=== PATIENT | female | born 1950 | race Caucasian/White ===

== ENCOUNTER 2021-09-18 07:58 | Outpatient (REF) | payer OTHER, SELFPAY ==
[2021-09-18 11:11] LABS: MANUAL DIFF FLAG NO
[2021-09-18 11:30] LABS: Basophils Percent Auto 0.9 % (0-2); Eosinophils Absolute Auto 0.2 X10*3/uL (0.0-0.4); Eosinophils Percent Auto 5.5 % (0-4); Hematocrit 42.5 % (37.0-47.0); Hemoglobin 13.9 g/dl (12.0-16.0); Imm Gran Abs Auto 0.01 X10*3/uL (0.00-0.03); Imm Gran Pct Auto 0.2 % (0.0-0.4); Lymphocytes Absolute Auto 1.8 X10*3/uL (1.2-4.9); Mean Corpuscular HGB Conc 32.7 g/dl (31.0-35.0); Mean Corpuscular Hemoglobin 31.5 pg (27.0-33.0); Mean Corpuscular Volume 96.4 fL (80.0-98.0); Mean Platelet Volume 10.2 fL (9.4-12.3); Monocytes Absolute Auto 0.5 X10*3/uL (0.1-1.2); Monocytes Percent Auto 10.7 % (2-11); Neutrophils Absolute Auto 1.9 x10*3/uL (2.0-8.3); Neutrophils Percent Auto 42.7 % (45-73); Platelet Count 241 X10*3/uL (160-400); Red Blood Count 4.41 X10*6/uL (4.20-5.50); Red Cell Distribution Width 13.3 % (11.0-16.0); White Blood Count 4.4 X10*3/uL (4.8-10.8)
[2021-09-18 11:38] LABS: Alanine Aminotransferase 16 U/L (0-31); Anion Gap 10 (12-20); Aspartate Amino Transferase 17 U/L (5-31); Blood Urea Nitrogen 12 mg/dL (9-16); Calcium 9.6 mg/dL (8.4-10.2); Carbon Dioxide 27 mmol/L (22-29); Chloride 106 mmol/L (96-108); Cholesterol 217 mg/dL; Estimated Glomerular Filt Rate > 60; Glucose Fasting 85 mg/dL (60-99); HDL Cholesterol 62 mg/dL; LDL Cholesterol Calculated 140 mg/dl; Potassium 4.3 mmol/L (3.3-5.1); Sodium 139 mmol/L (135-145); Triglycerides 79 mg/dL
[2021-09-18 12:02] LABS: Free T4 (Free Thyroxine) 1.06 ng/dL (0.71-1.85); Thyroid Stimulating Hormone 2.32 uIU/mL (0.32-4.0); Vitamin D 25-OH Total 33.6 ng/mL (>30)
[2021-09-22 19:51] LABS: Thyroid Peroxidase Antibodies >900 IU/mL (<9)
== END 2021-09-18 07:59 | disposition home or self-care (01) ==
LOC: HO.HMGCLDS 07:58
PROVIDERS: PCP Internal Medicine; Visit Provider Internal Medicine
DX: Z00.00 Encounter for general adult medical examination without abnormal findings (principal); E03.9 Hypothyroidism, unspecified; J31.0 Chronic rhinitis; E06.3 Autoimmune thyroiditis
CPT/HCPCS: 36415; 80048; 80061; 82306; 84439; 84443; 84450; 84460; 85025; 86376

== ENCOUNTER 2022-09-18 08:50 | Outpatient (REF) | payer OTHER, SELFPAY ==
[2022-09-18 12:27] LABS: Aspartate Amino Transferase 15 U/L (5-31); Cholesterol 223 mg/dL; Glucose Fasting 94 mg/dL (60-99); HDL Cholesterol 60 mg/dL; LDL Cholesterol Calculated 146 mg/dl; Triglycerides 86 mg/dL
[2022-09-18 12:51] LABS: Thyroid Stimulating Hormone 2.09 uIU/mL (0.32-4.0); Vitamin D 25-OH Total 41.8 ng/mL (>30)
[2022-09-21 22:53] LABS: Thyroid Peroxidase Antibodies 360 IU/mL (<9)
== END 2022-09-18 08:51 | disposition home or self-care (01) ==
LOC: HO.HMGCLDS 08:50
PROVIDERS: PCP Internal Medicine; Visit Provider Internal Medicine
DX: Z00.00 Encounter for general adult medical examination without abnormal findings (principal); E06.3 Autoimmune thyroiditis; M85.89 Other specified disorders of bone density and structure, multiple sites; J31.0 Chronic rhinitis
CPT/HCPCS: 36415; 80061; 82306; 82947; 84443; 84450; 86376

== ENCOUNTER 2023-01-07 13:39 | Outpatient (AMB) | payer OTHER, SELFPAY ==
--- NOTE | 2023-01-07 13:49 | MHC.OFFVIS ---
Intake Vital Signs 01/07/23 14:05 Height 5 ft 4 in Weight 140 lb BMI 24.0 BP 160/83 H Blood Pressure Location Lt brachial Position Sitting Pulse 79 Intake Visit Reasons: Abnormal mammo Intake Note: Patient is seen in office for evaluation of an abnormal mammogram. Patient c/o: has an upcoming mammogram in May 2023 (6 month f/u), pt does not feel any lump, bump, discharge, redness, swelling discoloration, had bx yrs ago (benign), no prior breast surgeries, has family hx of breast cancer (sister @ 50), did take hormonal replacement Manager Acquisition Required: No Accompanied by: Self / Same As Patient Allergies No Known Allergies Allergy (Verified 01/07/23 14:03) HPI HPI Comments History of Present Illness Details 72-year-old female patient presenting for evaluation of a recent suspicious mammogram. She reports undergoing a screening mammogram on 11/16/2022 which revealed bilateral asymmetric opacities noted on only a single view on each side (BI-RADS 0). Additional diagnostic images and ultrasound were obtained on 12/11/2022. Right breast lateral posterior depth asymmetry persisted with spot compression and were felt to be probably benign. Sonographic evaluation demonstrated no focal abnormality. The left breast asymmetry became equal in density on spot compression and was consistent with benign summation of fibroglandular tissue. The findings were felt to be low suspicion for malignancy (BI-RADS 3: Probably benign). Six-month follow-up with right breast CC spot compression was recommended. She reports a prior history of a left breast biopsy which was benign. She has a family history of her sister having breast cancer at the age of 50. She underwent lumpectomy and was treated with radiation therapy. She denies any palpable mass, nipple discharge, skin change or enlarged lymph nodes. She denies a history of hormonal replacement. She reports having a single ovary removed which was benign. COUNTS INCLUDE 234 BEDS AT THE [facility] Medical History Abnormal mammogram of both breasts Arthritis of left knee Family history of breast cancer in sister Eri's disease Hx of fracture of clavicle Laceration of forearm Osteopenia of multiple sites Rhinitis Surgical History History of left oophorectomy Family History Father Substance use disorder Brother Substance use disorder Colon cancer Mother Mental health disorder Colon cancer Sister Breast cancer, Onset Age: 50 Social History Housing: House Patient Tobacco Use Status: Never used Tobacco e-Cigarette/Vaping Use: Never Used Current occupational status: retired Cognitive needs: No Hearing needs: No Vision needs: Yes Female Reproductive History Menstrual Age of Menarche: 14 Age of menopause: 49 Total pregnancies: 0 Review of Systems Const All systems reviewed & are unremarkable except as noted in HPI and below Denies chills, Denies fever(s), Denies headache(s), Denies poor appetite and Denies weakness ENT Denies headache(s) Card Denies chest pain, Denies irregular heart rhythm, Denies palpitations and Denies dyspnea Resp Denies cough, Denies excessive phlegm production and Denies dyspnea GI Denies abdominal pain, Denies bloating, Denies change in bowel habits, Denies constipation, Denies heartburn, Denies diarrhea, Denies nausea and Denies vomiting Denies urinary frequency and Denies nipple discharge Musc Denies back pain, Denies muscle weakness and Denies numbness Skin/Breast Denies breast swelling, Denies breast skin changes, Denies breast pain, Denies breast mass, Denies changing lesions, Denies nipple discharge and Denies unusual bruising Neuro Denies headache(s), Denies numbness, Denies paresthesias and Denies weakness Psych Denies anxiety and Denies depression Endo Denies palpitations Bishop/Lymph Denies lymphadenopathy Physical Exam Vital Signs: Last Vital Signs Pulse 79 01/07/23 14:05 BP 160/83 H 01/07/23 14:05 BMI result Body Mass Index 24.0 Const General: cooperative and no acute distress Nutritional Appearance: well nourished Orientation/consciousness: patient oriented x3 Limitations: no limitations HEENT Head: Yes normocephalic and Yes atraumatic Ears: hearing grossly normal bilaterally Chest Other: Left breast: No skin change, no nipple retraction, no nipple discharge, no palpable mass, no enlarged lymph nodes. Well-healed incision in the 1 o'clock position. Right breast: No skin change, no nipple retraction, no nipple discharge, no palpable mass, no enlarged lymph nodes. Chest/axillae images: 1. Resp Effort & Inspection: normal respiratory effort, no audible wheezes, no cough and no respiratory distress Cardio Jugular venous distension: no JVD GI Inspection: Yes normal to inspection Skin Other: Warm, dry, no rash Neuro General: patient oriented x3 Extrem General: Yes no clubbing, cyanosis or edema Assessment & Plan Assessment & Plan (1) Family history of breast cancer in sister: Code(s): Z80.3 - Family history of malignant neoplasm of breast (2) Abnormal mammogram of both breasts: Code(s): R92.8 - Other abnormal and inconclusive findings on diagnostic imaging of breast Plan 72-year-old female patient with a strong family history of breast cancer presenting with a recent mammogram which revealed a low suspicion area of asymmetric opacity on the right side not evident on ultrasound. Repeat mammogram in 6 months was recommended with spot compressions. Examination today revealed no suspicious findings in either breast. I would agree that follow-up mammogram in 6 months is the best option at this time. We also discussed genetic testing given her strong family history of breast cancer and colon cancer. She will think about this and call if she wishes to schedule. She should follow up as needed. Coding Level of Care Code New Pt Level 4 (95188) Diagnoses Family history of breast cancer in sister Z80.3 Abnormal mammogram of both breasts R92.8
[2023-01-07 14:05] VITALS: BP 160/83; PULSE 79; BMI 24.0
== END 2023-01-07 14:22 | disposition home or self-care (01) ==
PROVIDERS: PCP Internal Medicine; Referring Provider Internal Medicine; Visit Provider Surgery
DX: Z80.3 Family history of malignant neoplasm of breast (principal); R92.8 Other abnormal and inconclusive findings on diagnostic imaging of breast
CPT/HCPCS: 99203

== ENCOUNTER → 2023-01-07 13:39 | Outpatient (BNVA) | payer OTHER, SELFPAY | PROVIDERS: PCP Internal Medicine; Referring Provider Internal Medicine; Visit Provider Surgery ==

== ENCOUNTER 2023-07-02 12:25 | Outpatient (AMB) | payer OTHER, SELFPAY ==
[2023-07-02 12:33] VITALS: BP 122/74; PULSE 74; O2SAT 96; BMI 24.9
--- NOTE | 2023-07-02 12:33 | MHC.PC.OV ---
Vital Signs 07/02/23 12:33 Height 5 ft 4 in Weight 145 lb BMI 24.9 BP 122/74 Blood Pressure Location Lt brachial Position Sitting Pulse 74 Pulse Source Pulse Oximeter Pulse Oximetry (%) 96 Oxygen Delivery Method Room Air Intake Visit Reasons: Bacterial vaginosis Intake Note: Pt is here today c/o vaginal odor: recurrent issues Allergies No Known Allergies Allergy (Verified 07/02/23 13:05) Medication List - Last Reconciled 07/02/23 by Rachel Torres MD fluticasone propionate 50 mcg/actuation (Flonase Allergy Relief) 1 spray intranasal DAILY metronidazole 500 mg PO Q12H Tobacco use date assessed: 07/02/23 Fall risk assessment: No Falls in past year Last assessed Fall Risk: 07/02/23 Dental Screening Dental Screen Date: 07/02/23 Did you have a dental visit in the last 12 months?: Yes Did you have a dental problem in the last 6 months where you did not have access to dental care?: Yes Was dental information given to patient?: Patient has dentist HPI Bacterial vaginosis HPI Details 72-year-old lady here today complaining of foul-smelling discharge coming from vaginal area, which has been present for the last 3 days . She has had bacterial vaginosis in the past, thinks that she might be having another one. Try the conservative options she however flushed her vaginal area with boric acid just before coming in today. [facility] Medical History Family history of breast cancer in sister Abnormal mammogram of both breasts Arthritis of left knee Osteopenia of multiple sites Hx of fracture of clavicle Rhinitis Eri's disease Laceration of forearm Surgical History History of left oophorectomy Family History Father Substance use disorder Brother Substance use disorder Colon cancer Mother Mental health disorder Colon cancer Sister Breast cancer, Onset Age: 50 Social History Housing: House Patient Tobacco Use Status: Never used Tobacco e-Cigarette/Vaping Use: Never Used Current occupational status: retired Cognitive needs: No Hearing needs: No Vision needs: Yes Female Reproductive History Menstrual Age of Menarche: 14 Questionnaire Thrive Questionnaire Date Thrive assessed: 09/18/22 ONEIL-7 AMB Questionnaire ONIEL-7 Date ONEIL - 7 assessed: 09/18/22 Source: Developed by Drs. Hesham Warren, Poppy Berumen, Carl Acosta and colleagues, with an educational renuka from [email or web address] Review of Systems Const All systems reviewed & are unremarkable except as noted in HPI and below Physical exam (Primary Care) Vital Signs: Last Vital Signs Pulse 74 07/02/23 12:33 BP 122/74 07/02/23 12:33 Pulse Ox 96 07/02/23 12:33 Oxygen Delivery Method Room Air 07/02/23 12:33 BMI result Body Mass Index 24.9 Tobacco/Smoking Status: Tobacco use Status Tobacco use date assessed 07/02/23 07/02/23 12:38 Patient Tobacco Use Status Never used Tobacco 07/02/23 12:38 e-Cigarette/Vaping Use Never Used 07/02/23 12:38 Thrive Assessment: Date of Thrive Assessment Date Thrive assessed 09/18/22 07/02/23 12:38 Const Other: Alert oriented x3, no acute distress noted ambulatory no GI Other: Normal bowel sounds, soft, nontender with no mass palpated External Female Exam: normal external appearance and normal appearance of the urethra Speculum Exam - Vagina: normal palpation and vagina atrophic (Flattened vaginal mucosa, minimal vaginal discharge) Speculum Exam - Cervix: normal appearance of the cervix and normal palpation Bimanual exam- vagina & uterus: normal bimanual exam, normal palpation and normal palpation Bimanual Exam- Adnexa, other: normal adnexae, no masses and No adnexal tenderness Assessment and Plan Assessment & Plan (1) Foul smelling vaginal discharge: Code(s): N89.8 - Other specified noninflammatory disorders of vagina Plan: Bacterial vaginosis panel obtain, empirically treated with metronidazole 500 mg to take 1 every 12 hours for 5 days. Orders: Orders Bacterial Vaginosis Panel Today N89.8 - Other specified noninflammatory disorders of vagina Medications: New metronidazole 500 mg PO Q12H 10 tabs 0RF Coding Level of Care Code Est Pt Level 3 (80856) Diagnoses Foul smelling vaginal discharge N89.8
== END 2023-07-02 16:05 | disposition home or self-care (01) ==
PROVIDERS: PCP Internal Medicine; Visit Provider Internal Medicine
DX: N89.8 Other specified noninflammatory disorders of vagina (principal)
CPT/HCPCS: 99213

== ENCOUNTER 2023-07-02 13:05 | Outpatient (REF) | payer OTHER, SELFPAY ==
[2023-07-03 11:44] LABS: BV Int Neg Control Negative (Negative); BV Int Pos Control Positive (Positive)
== END 2023-07-02 13:06 | disposition home or self-care (01) ==
LOC: HO.LAB 13:05
PROVIDERS: Visit Provider Internal Medicine
DX: N89.8 Other specified noninflammatory disorders of vagina (principal)
CPT/HCPCS: 87480; 87510; 87660

== ENCOUNTER 2023-08-27 12:46 | Outpatient (AMB) | payer OTHER, SELFPAY ==
--- NOTE | 2023-08-27 12:52 | MHC.OFFWIV ---
Intake Vital Signs 08/27/23 12:53 Height 5 ft 4 in Weight 140 lb BMI 24.0 BP 140/90 H Blood Pressure Location Lt brachial Position Sitting Pulse 84 Pulse Source Pulse Oximeter Temp 98.5 F Temp Source Temporal Artery Scan Pulse Oximetry (%) 96 Oxygen Delivery Method Room Air Intake Visit Reasons: EP LT leg Intake Note: pt is here today for lft leg stared 3 weeks ago Patient Tobacco Use Status: Never used Tobacco Allergies No Known Allergies Allergy (Verified 08/27/23 12:57) Do you need a note to return to daycare/school/sports/work: No HPI HPI Comments History of Present Illness Details This is a 73-year-old female with a past medical history of left knee arthritis previously treated with steroid injections, most recent several months ago, presenting for evaluation of left knee and left leg pain that started approximately 3 weeks ago with medial knee pain, however yesterday her pain significantly worsened behind her right knee and her distal right thigh. The patient states she has significant pain when walking today. She has used Advil, Ibuprofen and Tylenol without complete relief of her pain. The patient denies any recent falls, injury or trauma. The patient also denies any recent travel, shortness of breath or chest pain. [facility] Medical History Family history of breast cancer in sister Abnormal mammogram of both breasts Arthritis of left knee Osteopenia of multiple sites Hx of fracture of clavicle Rhinitis Eri's disease Laceration of forearm Surgical History History of left oophorectomy Family History Father Substance use disorder Brother Substance use disorder Colon cancer Mother Mental health disorder Colon cancer Sister Breast cancer, Onset Age: 50 Social History Housing: House Patient Tobacco Use Status: Never used Tobacco e-Cigarette/Vaping Use: Never Used Current occupational status: retired Cognitive needs: No Hearing needs: No Vision needs: Yes Female Reproductive History Menstrual Age of Menarche: 14 Review of Systems Const All systems reviewed & are unremarkable except as noted in HPI and below Reports no additional complaints Eyes Reports no additional complaints ENT Reports no additional complaints Card Reports no additional complaints, Denies chest pain, Denies syncope, Denies pedal edema and Denies lightheadedness Resp Reports no additional complaints, Denies cough, Denies hemoptysis and Denies wheezing Musc Reports arthralgias (left knee) and Reports joint swelling (left knee) Skin/Breast Reports system reviewed and no additional complaints, except as documented Neuro Reports no additional complaints and Denies syncope Psych Reports no additional complaints Aller/Immun Denies wheezing Physical Exam Vital Signs: Last Vital Signs Temp 98.5 F 08/27/23 12:53 Pulse 84 08/27/23 12:53 BP 140/90 H 08/27/23 12:53 Pulse Ox 96 08/27/23 12:53 Oxygen Delivery Method Room Air 08/27/23 12:53 BMI result Body Mass Index 24.0 Const General: healthy appearing, no acute distress, well developed, alert, awake and other (patient is afebrile) Nutritional Appearance: average body habitus and well nourished Orientation/consciousness: patient oriented x3 Limitations: no limitations and ambulation with cane Resp Effort & Inspection: normal respiratory effort, no audible wheezes and no cough Auscultation: clear to auscultation bilaterally Cardio Rate: regular rate Rhythm: regular rhythm Skin General skin exam: no rashes or lesions noted Neuro General: patient oriented x3 Extrem Other: There is edema of the left anterior knee joint and there is no erythema or warmth to touch; edema limits full extension of the left knee joint and there is a fullness/tenderness at the posterior fossa. No overt left calf tenderness. General: No full ROM (pain with extension of the left knee), Yes no pedal edema, Yes no calf tenderness, No normal gait, Yes Limp noted and No pedal edema Left lower extremity: edema (non.pitting edema left anterior knee joint) and knee (firmness of the posterior fossa, no pain to direct exam of knee joint) Details: tenderness, swelling and abnormal ROM; no unusual warmth; abnormal ROM (unable to extend fully left knee) Psych Appearance: grossly normal Mental Status: mental status grossly normal Insight: Good insight present (Psych) Judgement: Good judgement present (Psych) Results Reviewed Results Reviewed: Popliteal cyst on ultrasound imaging -- patient given results and she will follow-up with orthopedics as scheduled next week. Assessment & Plan Assessment & Plan (1) Posterior left knee pain: Comment: Differential includes DVT, popliteal cyst. Code(s): M25.562 - Pain in left knee Plan: Doppler US of the left lower extremity will be ordered. Patient has an appointment scheduled with Dr. Escobedo on morning and copies of ultrasound will be copied to Dr. Escobedo. Patient is comfortable taking Naprosyn for her pain and ambulating with the aid of a cane. Orders: Orders US venous duplex LE LT Today M25.562 - Pain in left knee Coding Level of Care Code Est Pt Level 4 (23394) Diagnoses Posterior left knee pain M25.562 Time Spent (min) 25
[2023-08-27 12:53] VITALS: BP 140/90; PULSE 84; TEMP 36.9; O2SAT 96; BMI 24.0
== END 2023-08-27 15:09 | disposition home or self-care (01) ==
PROVIDERS: PCP Internal Medicine; Visit Provider Physician Assistant
DX: M25.562 Pain in left knee (principal)
CPT/HCPCS: 99214

== ENCOUNTER 2023-08-27 13:38 | Outpatient (REF) | payer OTHER, SELFPAY ==
--- NOTE | ~2023-08-27 | US_ITS ---
EXAMINATION: US VENOUS ULTRASOUND WITH DOPPLER LOWER EXTREMITY, LEFT CLINICAL INFORMATION: Knee pain COMPARISON: None available. TECHNIQUE: Ultrasound of the deep veins is performed from the hip to the calf with compression sonography and color and pulse Doppler assessment. Spectral analysis with color-flow imaging is performed. FINDINGS: There is normal venous compression and respiratory variation and augmented flow. The visualized common femoral vein, superficial femoral vein, profunda femoral vein, popliteal vein, and the trifurcation region shows no evidence of deep venous thrombosis. There is 5.2 x 1.1 x 2.8 cm complex popliteal fossa cyst. US/US venous duplex LE LT IMPRESSION: No DVT demonstrated in the left lower extremity. Guo's cyst.
== END 2023-08-27 13:39 | disposition home or self-care (01) ==
LOC: HO.HMGCX 13:38
PROVIDERS: PCP Internal Medicine; Visit Provider Physician Assistant
DX: M25.562 Pain in left knee (principal); M71.22 Synovial cyst of popliteal space [Baker], left knee; I82.409 Acute embolism and thrombosis of unspecified deep veins of unspecified lower extremity
CPT/HCPCS: 93971

== ENCOUNTER 2023-09-02 08:02 | Outpatient (AMB) | payer OTHER, SELFPAY ==
[2023-09-02 08:03] VITALS: BMI 24.0
--- NOTE | 2023-09-02 08:03 | A.OFFVIS_ITS ---
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 The patient states that she did have cortisone injections given into her left knee in the past. The injections seem to aggravate her pain. Her pain has gotten worse over the last year in spite of continued non operative treatments. She has tried Tylenol and anti-inflammatory medicines which gave her minimal relief. She has also tried wearing a knee brace which gives her no relief. She has done physical therapy exercises which aggravated her pain. She wishes to hold off on total knee replacement surgery if at all possible. Allergies No Known Allergies Allergy (Verified 09/02/23 08:17) Medication List - Last Reconciled 09/02/23 by Bradley Escobedo MD fluticasone propionate 50 mcg/actuation (Flonase Allergy Relief) 1 spray intranasal DAILY [facility] Medical History Family history of breast cancer in sister Abnormal mammogram of both breasts Arthritis of left knee Osteopenia of multiple sites Hx of fracture of clavicle Rhinitis Eri's disease Laceration of forearm Surgical History History of left oophorectomy Family History Father Substance use disorder Brother Substance use disorder Colon cancer Mother Mental health disorder Colon cancer Sister Breast cancer, Onset Age: 50 Social History (Updated 09/02/23 @ 08:18 by Tiffanie Mclean CMA) Housing: House Patient Tobacco Use Status: Never used Tobacco e-Cigarette/Vaping Use: Never Used Current occupational status: retired Current occupation: Right hand dominate Cognitive needs: No Hearing needs: No Vision needs: Yes Female Reproductive History Menstrual Age of Menarche: 14 Physical Exam Vital Signs: BMI result Body Mass Index 24.0 Const Other: Well-nourished well-developed very friendly female awake alert and oriented x3 in no acute distress Extrem Other: Bilateral lower extremity examination shows good capillary refill, no skin lesions noted, normal sensation light touch Left knee examination shows a mild effusion, palpable crepitus with range of motion, pain with range of motion, range of motion from -3 degrees to 115 degrees, no instability Results Reviewed Results Reviewed: X-rays of the patient's left knee show moderate to severe degenerative changes most significant in the patellofemoral joint, subchondral sclerosis, osteophyte formation, no acute bony abnormalities Assessment & Plan Assessment & Plan (1) Arthritis of left knee: Code(s): M17.12 - Unilateral primary osteoarthritis, left knee Plan Ms. Mills presents with left knee pain due to degenerative joint disease. I had a lengthy discussion with the patient regarding the treatment options. She wishes to hold off on left total knee replacement surgery for as long as possible. I agree with this plan. She has not gotten good relief from cortisone injections in the past. Thus, I will see whether not her insurance company will cover a viscosupplementation injection for her left knee. I will see her back once the injection is available. Feel free to call me at any time should questions regarding her orthopedic management arise. Thank you very much for asking me to see this very friendly patient. I spent 19 minutes in reviewing the patient's records and imaging studies, seeing the patient and documenting in the medical record. Orders: Orders XR knee LT 3V Today M25.562 - Pain in left knee Coding Level of Care Code New Pt Level 2 (02315) Diagnoses Arthritis of left knee M17.12
== END 2023-09-02 08:34 | disposition home or self-care (01) ==
PROVIDERS: PCP Internal Medicine; Visit Provider Orthopaedic Surgery
DX: M17.12 Unilateral primary osteoarthritis, left knee (principal)
CPT/HCPCS: 99202

== ENCOUNTER 2023-09-02 09:16 | Outpatient (REF) | payer MEDICARE, SELFPAY ==
--- NOTE | ~2023-09-02 | XR_ITS ---
EXAMINATION: XR KNEE, LEFT CLINICAL INFORMATION: Pain in left knee. COMPARISON: None available. TECHNIQUE: Three views of the left knee. FINDINGS: Moderate joint effusion. Bones are diffusely demineralized. Moderate narrowing of the medial compartment with medial marginal osteophytes. Moderate degenerative changes in the patellofemoral compartment with narrowing and hypertrophic change. Patella appears somewhat superiorly located relative to the distal femur. XR/XR knee LT 3V IMPRESSION: 1. Moderate degenerative changes. 2. Patellae appear somewhat superiorly located relative to the distal femur. 3. Moderate joint effusion.
== END 2023-09-02 09:17 | disposition home or self-care (01) ==
LOC: HO.HOSX 09:16
PROVIDERS: Visit Provider Orthopaedic Surgery
DX: M17.12 Unilateral primary osteoarthritis, left knee (principal)
CPT/HCPCS: 73562

== ENCOUNTER 2023-09-24 07:47 | Outpatient (AMB) | payer OTHER, SELFPAY ==
[2023-09-24 07:53] VITALS: BP 136/70; PULSE 73; O2SAT 98; BMI 24.2
--- NOTE | 2023-09-24 07:53 | MHC.PC.OV ---
Vital Signs 09/24/23 07:53 Height 5 ft 4 in Weight 141 lb BMI 24.2 BP 136/70 Blood Pressure Location Rt brachial Position Sitting Pulse 73 Pulse Source Pulse Oximeter Pulse Oximetry (%) 98 Oxygen Delivery Method Room Air Intake Visit Reasons: PE Intake Note: Pt is here today for her PE: last mammogram 06/16/23, colonoscopy 01/06/19, bone density scan 04/13/17 Allergies No Known Allergies Allergy (Verified 09/26/23 20:48) Medication List - Last Reconciled 09/26/23 by Rachel Torres MD fluticasone propionate 50 mcg/actuation (Flonase Allergy Relief) 1 spray intranasal DAILY Tobacco use date assessed: 09/24/23 Fall risk assessment: No Falls in past year Last assessed Fall Risk: 09/24/23 Dental Screening Dental Screen Date: 09/24/23 HPI PE HPI Details 73-year-old lady here today for physical exam. She has osteopenia of multiple sites, has Eri's disease, currently asymptomatic and has osteoarthritis. She is up-to-date with her screening mammogram, due now for a repeat bone density scan . She had a colonoscopy screening done by Dr. Wilson in 2019, due again this year due to positive family history for colon cancer . Complaining of persistent pain in posterior aspect of her left knee joint, has a Guo's cyst present and osteoarthritis. She currently sees [facility] and has been advised total knee replacement. Patient states that she would like a referral to see a different orthopedics for 2nd opinion. FOR[facility]LY [facility], LAT[facility] Medical History (Updated 09/26/23 @ 20:54 by Rachel Torres MD) Primary osteoarthritis of left knee Family history of breast cancer in sister Abnormal mammogram of both breasts Arthritis of left knee Osteopenia of multiple sites Hx of fracture of clavicle Rhinitis Eri's disease Laceration of forearm Surgical History History of left oophorectomy Family History Father Substance use disorder Brother Substance use disorder Colon cancer Mother Mental health disorder Colon cancer Sister Breast cancer, Onset Age: 50 Social History Housing: House Patient Tobacco Use Status: Never used Tobacco e-Cigarette/Vaping Use: Never Used Current occupational status: retired Current occupation: Right hand dominate Cognitive needs: No Hearing needs: No Vision needs: Yes Female Reproductive History Menstrual Age of Menarche: 14 Questionnaire PHQ-9 Over the last 2 weeks, how often have you been bothered by any of the following problems? 1. Little interest or pleasure in doing things: not at all 2. Feeling down, depressed, or hopeless: not at all 3. Trouble falling or staying asleep, or sleeping too much: several days 4. Feeling tired or having little energy: several days 5. Poor appetite or overeating: not at all 6. Feeling bad about yourself - or that you are a failure or have let yourself or your family down: not at all 7. Trouble concentrating on things, such as reading the newspaper or watching television: not at all 8. Moving or speaking so slowly that other people could have noticed. Or the opposite - being so fidgety or restless that you have been moving around a lot more than usual: not at all 9. Thoughts that you would be better off or of hurting yourself in some way: not at all Total score: 2 Depression Screening Interpretation: Negative Depression Screening Done: Yes 88380 - PHQ-9 Billing: Yes Source: Developed by Drs. Hesham Warren, Poppy Berumen, Carl Acosta and colleagues, with an educational renuka from [employer]. Thrive Questionnaire Date Thrive assessed: 09/24/23 I am a: Patient What is your living situation today?: I have a steady place to live Within the past 12 months, did the food you bought not last and you didn't have the money to get more?: Never true Within the past 12 months, did you worry whether your food would run out before you got money to buy more?: Never true Do you have trouble paying for medicines?: No Do you have trouble getting transportation to medical appointments?: No Do you have trouble paying your heating and electricity bill?: No Do you have trouble taking care of your child, family member or friend?: No Do you have trouble with day-to-day activities such as bathing, preparing meals, shopping, managing finances, etc.?: No Are you currently unemployed and looking for a job?: No Are you interested in more education?: No THRIVE Score: 0 AUDIT C Alcohol Use Questionnaire (AUDIT-C) 1. How often do you have a drink containing alcohol?: 4 or more times a week 2. How many drinks containing alcohol do you have on a typical day when you are drinking?: 1 or 2 3. How often do you have six or more drinks on one occasion?: Never Total Score: 4 ONEIL-7 AMB Questionnaire ONEIL-7 Date ONEIL - 7 assessed: 09/24/23 Feeling nervous, anxious, or on edge: 0 = Not at all Not being able to stop or control worryin = Not at all Worrying too much about different things: 0 = Not at all Trouble relaxin = Not at all Being so restless that it is hard to sit still: 0 = Not at all Becoming easily annoyed or irritable: 0 = Not at all Feeling afraid as if something awful might happen: 0 = Not at all Total ONEIL-7 score (0-4 normal; 5-9 mild; 10-14 moderate; 15-21 severe): 0 Source: Developed by Drs. Hesham Warren, Poppy Berumen, Carl Acosta and colleagues, with an educational renuka from [employer]. ONEIL-7 Assessment Billing ONEIL-7 Assessment Tool: ONEIL-7 Assessment 96581 Review of Systems Const All systems reviewed & are unremarkable except as noted in HPI and below Reports no additional complaints Eyes Reports no additional complaints ENT Reports no additional complaints Card Denies chest pain, Denies syncope, Denies pedal edema and Denies lightheadedness Resp Denies cough, Denies hemoptysis and Denies wheezing GI Reports no additional complaints Reports no additional complaints Musc Reports arthralgias (left knee) and Reports joint swelling (left knee) Skin/Breast Reports system reviewed and no additional complaints, except as documented Neuro Reports no additional complaints and Denies syncope Psych Reports no additional complaints Endo Reports no additional complaints Bishop/Lymph Reports no additional complaints Aller/Immun Denies wheezing Physical exam (Primary Care) Vital Signs: Last Vital Signs Pulse 73 09/24/23 07:53 BP 136/70 09/24/23 07:53 Pulse Ox 98 09/24/23 07:53 Oxygen Delivery Method Room Air 09/24/23 07:53 BMI result Body Mass Index 24.2 Tobacco/Smoking Status: Tobacco use Status Tobacco use date assessed 09/24/23 09/24/23 07:55 Patient Tobacco Use Status Never used Tobacco 09/24/23 07:55 e-Cigarette/Vaping Use Never Used 09/24/23 07:55 PHQ-9: PHQ-9 Score PHQ-9: Total score 2 09/24/23 09:14 Depression Screening Interpretation: Negative Thrive Assessment: Date of Thrive Assessment Date Thrive assessed 09/24/23 09/24/23 08:11 Advance Care Planning discussion: Completed/Scanned Date of discussion: 09/24/23 Who was present: Patient Forms completed: Health Care Proxy Time spent: 16-45 minutes Actual minutes spent: 16 Const Other: Alert oriented pt 3, no acute distress, normal gait HENMT Head: Yes normocephalic Ears: TM's normal bilaterally and EAC's normal General nose exam: Normal external nose present and No nasal discharge present Face and sinus: Yes face symmetric Mouth: Normal oral and palatal mucosa present, oropharynx normal and moist mucous membranes Eyes General: appearance normal, both eyes and all related structures Pupils: Equal, round and reactive pupils present EOM: EOMs intact bilaterally Neck Neck: Yes full ROM, Yes no lymphadenopathy, Yes no meningeal signs and Yes supple Thyroid: Thyroid normal Chest Breast/axilla palpation: normal palpation of the breasts Resp Effort & Inspection: normal respiratory effort and able to speak in complete sentences Auscultation: clear to auscultation bilaterally Cardio Other: S1-S2 present regular rate and rhythm Bruits: no abdominal aortic bruits GI Palpation (GI): No Abdominal aortic bruit present, Soft to palpation, nontender, no guarding and no masses General: Yes no CVA tenderness Back/Spine/Pelvis Back: no CVA tenderness and No back tenderness Skin General skin exam: no rashes or lesions noted Neuro General: gait normal, tone normal, moves all extremities, Normal light touch and pain sensation, no meningeal signs, no focal motor deficits and CN's II-XI intact bilaterally Cranial nerves: Yes Equal, round and reactive pupils present Extrem Other: Tenderness on palpation over medial aspect of left knee, positive crepitus noted in left knee joint General: Yes full ROM, Yes no pedal edema, Yes no calf tenderness and Yes normal gait Psych Appearance: grossly normal and well kempt Mental Status: mental status grossly normal Speech and movement: Normal speech and movement present Affect: normal affect Attitude: cooperative Thought process: Normal thought process present Thought content: Normal thought content present Immunizations pneumoc 20-mercy conj-dip cr(PF) 0.5 mL IM syringe Performing Provider: Rachel Torres MD Performing Location: [facility] Administered by: Michelle Busby CMA on 09/24/23 09:13 Dose Route Admin Location Dispensed Lot Number Expiration Date NDC Advance Agent 0.5 mL IM Right Deltoid 0.5 mL [id number] 08/28/24 [id number] [employer] VIS Given Date VIS Provided VIS Publication Date 09/24/23 Single Vaccine 21 Eligibility Eligibility Date Funding Source Not [facility] Eligible 09/24/23 Private Assessment and Plan Assessment & Plan (1) Annual visit for general adult medical examination with abnormal findings: Code(s): Z00.01 - Encounter for general adult medical examination with abnormal findings Plan: Will check appropriate labs. Continue regular dental visit every 6 months and regular eye exams, at least every 2 years. Take adequate calcium in diet and vitamin-D 3 at 2000 IU per cap once a day, in addition to weight-bearing exercises to help maintain good muscle tone and weight control. Instructed to do self-breast exam, and continue with yearly mammogram, starting at age 40. Up-to-date with all her vaccinations except for her pneumonia vaccine, Prevnar 20 given today. [address] sees Dr[address] Wilson for her routine screening colonoscopy last done 2018, due again this year due to strong family history for colon cancer. Patient states she will be contacted by Dr. Duffy to schedule appointment (2) Primary osteoarthritis of left knee: Code(s): M17.12 - Unilateral primary osteoarthritis, left knee Plan: Currently seeing [facility] for Orthopedics,, but requesting 2nd opinion. Referred to [facility], per patient request to discuss other treatment options for her osteoarthritis in the left knee (3) Osteopenia of multiple sites: Code(s): M85.89 - Other specified disorders of bone density and structure, multiple sites Plan: Ordered a bone density scan. Reinforced importance of doing regular weight-bearing exercise, taking adequate calcium from dietary sources and taking at least 2000 units of vitamin-D 3 daily (4) Rhinitis: Code(s): J31.0 - Chronic rhinitis Qualifiers: Rhinitis type: unspecified Qualified Code(s): J31.0 - Chronic rhinitis Plan: Advised to try taking gmof-lsp-hafedrd loratadine or Zyrtec 10 mg once a day as needed. 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, unilateral Aspartate Amino Transferase 09/24/23 J31.0 - Chronic rhinitis, M17.12 - Unilateral primary osteoarthritis, left knee, M85.89 - Other specified disorders of bone density and structure, multiple sites, Z00.01 - Encounter for general adult medical examination with abnormal findings, 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, unilateral Hemoglobin and Hematocrit 09/24/23 J31.0 - Chronic rhinitis, M17.12 - Unilateral primary osteoarthritis, left knee, M85.89 - Other specified disorders of bone density and structure, multiple sites, Z00.01 - Encounter for general adult medical examination with abnormal findings, 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, unilateral Thyroid Peroxidase Antibodies 09/24/23 E06.3 - Autoimmune thyroiditis Thyroid Stimulating Hormone 09/24/23 E06.3 - Autoimmune thyroiditis XR DEXA axial skeleton 09/24/23 M85.89 - Other specified disorders of bone density and structure, multiple sites Basic Metabolic Panel Fasting 09/24/23 J31.0 - Chronic rhinitis, M17.12 - Unilateral primary osteoarthritis, left knee, M85.89 - Other specified disorders of bone density and structure, multiple sites, Z00.01 - Encounter for general adult medical examination with abnormal findings, 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, unilateral Lipid Panel 09/24/23 J31.0 - Chronic rhinitis, M17.12 - Unilateral primary osteoarthritis, left knee, M85.89 - Other specified disorders of bone density and structure, multiple sites, Z00.01 - Encounter for general adult medical examination with abnormal findings, 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, unilateral Alanine Aminotransferase 09/24/23 J31.0 - Chronic rhinitis, M17.12 - Unilateral primary osteoarthritis, left knee, M85.89 - Other specified disorders of bone density and structure, multiple sites, Z00.01 - Encounter for general adult medical examination with abnormal findings, 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, unilateral Free T4 (Free Thyroxine) 09/24/23 E06.3 - Autoimmune thyroiditis Pneumococcal 20 Immunization 09/24/23 Z23 - Encounter for immunization Referrals Orthopedics Referral M17.12 - Unilateral primary osteoarthritis, left knee Coding Level of Care Code Est Pt Prev Care >65y(14270) Diagnoses Annual visit for general adult medical examination with abnormal findings Z00.01 Primary osteoarthritis of left knee M17.12 Osteopenia of multiple sites M85.89 Rhinitis, unspecified type J31.0 Rhinitis type: unspecified Eri's disease E06.3 Additional Codes ONEIL-7 Assessment Billing - ONEIL-7 Assessment Tool: ONEIL-7 Assessment 72457 ([id number]) Vital Signs *Quality* - Advance Care Planning discussion: Completed/Scanned ([id number]) Vital Signs *Quality* - Time spent: 16-45 minutes ([id number])
== END 2023-09-24 09:29 | disposition home or self-care (01) ==
PROVIDERS: Visit Provider Internal Medicine
DX: Z23 Encounter for immunization (principal)
CPT/HCPCS: 1123F; 90471; 90677; 99397; 99497

== ENCOUNTER 2023-09-24 09:19 | Outpatient (REF) | payer MEDICARE, SELFPAY ==
[2023-09-24 10:35] LABS: Hematocrit 40.9 % (37.0-47.0); Hemoglobin 13.8 g/dl (12.0-16.0)
[2023-09-24 11:03] LABS: Alanine Aminotransferase 14 U/L (0-31); Anion Gap 11 (12-20); Aspartate Amino Transferase 17 U/L (5-31); Blood Urea Nitrogen 16 mg/dL (9-16); Calcium 9.6 mg/dL (8.4-10.2); Carbon Dioxide 26 mmol/L (22-29); Chloride 108 mmol/L (96-108); Cholesterol 201 mg/dL (<200); Estimated Glomerular Filt Rate > 60; Glucose Fasting 103 mg/dL (60-99); HDL Cholesterol 63 mg/dL (>40); LDL Cholesterol Calculated 127 mg/dL (<100); Potassium 4.1 mmol/L (3.3-5.1); Sodium 141 mmol/L (135-145); Triglycerides 59 mg/dL (<150)
[2023-09-24 11:08] LABS: Free T4 (Free Thyroxine) 1.06 ng/dL (0.71-1.85); Thyroid Stimulating Hormone 1.64 uIU/mL (0.32-4.0); Vitamin D 25-OH Total 51.7 ng/mL (>30)
[2023-09-27 18:03] LABS: Thyroid Peroxidase Antibodies 339 IU/mL (<9)
== END 2023-09-24 09:20 | disposition home or self-care (01) ==
LOC: HO.HMGCLDS 09:19
PROVIDERS: PCP Internal Medicine; Visit Provider Internal Medicine
DX: Z00.01 Encounter for general adult medical examination with abnormal findings (principal); E06.3 Autoimmune thyroiditis; M17.12 Unilateral primary osteoarthritis, left knee; J31.0 Chronic rhinitis; M85.89 Other specified disorders of bone density and structure, multiple sites; Z90.721 Acquired absence of ovaries, unilateral
CPT/HCPCS: 36415; 80048; 80061; 82306; 84439; 84443; 84450; 84460; 85014; 85018; 86376

== ENCOUNTER 2023-10-19 10:56 | Outpatient (AMB) | payer MEDICARE, SELFPAY ==
[2023-10-19 11:02] VITALS: BMI 24.2
--- NOTE | 2023-10-19 11:02 | A.OFFVIS_ITS ---
Vital Signs 10/19/23 11:02 Height 5 ft 4 in Weight 141 lb BMI 24.2 Intake Visit Reasons: OV- Left knee #1 Euflexxa gel injecton Intake Note: Leana is a 73 year old female who presents for her #1 Left knee knee Euflexxa gel injection. She describes her left knee pain as sharp in nature. She also reports swelling in her left knee. She has had cortisone injections in the past which seemed to aggravate her pain. She has tried Tylenol and anti-inflammatory medicines which gave her minimal relief. She would like to hold off on surgery for as long as possible. Allergies No Known Allergies Allergy (Verified 10/19/23 11:05) Medication List - Last Reconciled 10/19/23 by Bradley Escobedo MD fluticasone propionate 50 mcg/actuation (Flonase Allergy Relief) 1 spray intranasal DAILY [facility]LY [facility] Medical History Primary osteoarthritis of left knee Family history of breast cancer in sister Abnormal mammogram of both breasts Arthritis of left knee Osteopenia of multiple sites Hx of fracture of clavicle Rhinitis Eri's disease Laceration of forearm Surgical History History of left oophorectomy Family History Father Substance use disorder Brother Substance use disorder Colon cancer Mother Mental health disorder Colon cancer Sister Breast cancer, Onset Age: 50 Social History Housing: House Patient Tobacco Use Status: Never used Tobacco e-Cigarette/Vaping Use: Never Used Current occupational status: retired Current occupation: Right hand dominate Cognitive needs: No Hearing needs: No Vision needs: Yes Female Reproductive History Menstrual Age of Menarche: 14 Physical Exam Vital Signs: BMI result Body Mass Index 24.2 Const Other: Well-nourished well-developed very friendly female awake alert and oriented x3 in no acute distress Extrem Other: Bilateral lower extremity examination shows good capillary refill, no skin lesions noted, normal sensation light touch Left knee examination shows a moderate effusion, palpable crepitus with range of motion, pain with range of motion no instability Office Procedures Joint Injection/Drain Joint Injection/Drain Primary Site: left knee Prep: site was prepped using aseptic technique Injected: 20 mg of (Euflexxa viscosupplementation) and 1% plain lidocaine Procedure: The patient tolerated the procedure well Coding 53655 - Large joint Procedure code (CPT) selection complete Results Reviewed Results Reviewed: X-rays of the patient's left knee show joint space narrowing, subchondral sclerosis, no acute bony abnormalities Assessment & Plan Assessment & Plan (1) Primary osteoarthritis of left knee: Code(s): M17.12 - Unilateral primary osteoarthritis, left knee Category: Medical Plan Ms. Mills presents with progressively worsening left knee pain and swelling due to degenerative joint disease. I had a lengthy discussion with the patient regarding the treatment options. She wishes to hold off on surgery for as long as possible. I agree with this plan. She has not gotten good relief from cortisone injections in the past. Thus, the risks and benefits of a series of viscosupplementation injections were discussed at length with the patient. The patient wished to proceed. She tolerated the 1st Euflexxa injection well. Prior to the injection I aspirated 15 cc of clear fluid from her left knee. She will follow up next week as scheduled. Feel free to call me at any time should questions regarding her orthopedic management arise. I spent 20 minutes in reviewing the patient's records and imaging studies, seeing the patient and documenting in the medical record. Orders: Orders AMB Joint Injection/Aspiration Today M17.12 - Unilateral primary osteoarthritis, left knee Coding Level of Care Code Est Pt Level 3 (94457) Diagnoses Primary osteoarthritis of left knee M17.12 CPT Codes Coding - Large joint: 91631 - Large joint ([id number])
== END 2023-10-19 11:19 | disposition home or self-care (01) ==
PROVIDERS: PCP Internal Medicine; Visit Provider Orthopaedic Surgery
DX: M17.12 Unilateral primary osteoarthritis, left knee (principal)
CPT/HCPCS: 20610; 99213

== ENCOUNTER → 2023-10-19 10:56 | Outpatient (BNVA) | payer MEDICARE, SELFPAY | PROVIDERS: PCP Internal Medicine; Visit Provider Orthopaedic Surgery | DX: M17.12 Unilateral primary osteoarthritis, left knee (principal) | CPT/HCPCS: 20610; 99212; J7323 ==

== ENCOUNTER 2023-10-26 10:59 | Outpatient (AMB) | payer MEDICARE, SELFPAY ==
[2023-10-26 11:10] VITALS: BMI 24.2
--- NOTE | 2023-10-26 11:10 | MHC.OFFVIS ---
Vital Signs 10/26/23 11:10 Height 5 ft 4 in Weight 141 lb BMI 24.2 Intake Visit Reasons: OV- Left knee #2 Euflexxa gel injecton Intake Note: Leana is a 73 year old female who presents for her #2 Left knee Euflexxa gel injection. She states that she got mild relief from her 1st injection. She continues with her home exercise program. Allergies No Known Allergies Allergy (Verified 10/26/23 11:14) Medication List - Last Reconciled 10/26/23 by Bradley Escobedo MD fluticasone propionate 50 mcg/actuation (Flonase Allergy Relief) 1 spray intranasal DAILY PFSH Medical History Primary osteoarthritis of left knee Family history of breast cancer in sister Abnormal mammogram of both breasts Arthritis of left knee Osteopenia of multiple sites Hx of fracture of clavicle Rhinitis Eri's disease Laceration of forearm Surgical History History of left oophorectomy Family History Father Substance use disorder Brother Substance use disorder Colon cancer Mother Mental health disorder Colon cancer Sister Breast cancer, Onset Age: 50 Social History Housing: House Patient Tobacco Use Status: Never used Tobacco e-Cigarette/Vaping Use: Never Used Current occupational status: retired Current occupation: Right hand dominate Cognitive needs: No Hearing needs: No Vision needs: Yes Female Reproductive History Menstrual Age of Menarche: 14 Physical Exam Vital Signs: BMI result Body Mass Index 24.2 Extrem Other: Left knee examination shows a moderate effusion, palpable crepitus with range of motion, pain with range of motion, no instability Office Procedures Joint Injection/Drain Joint Injection/Drain Primary Site: left knee Prep: site was prepped using aseptic technique Injected: 20 mg of (Euflexxa viscosupplementation) and 1% plain lidocaine Procedure: The patient tolerated the procedure well Coding 71819 - Large joint Procedure code (CPT) selection complete Results Reviewed Results Reviewed: X-rays of the patient's left knee show joint space narrowing, subchondral sclerosis, no acute bony abnormalities Assessment & Plan Assessment & Plan (1) Primary osteoarthritis of left knee: Code(s): M17.12 - Unilateral primary osteoarthritis, left knee Category: Medical Plan Ms. Mlils presents with left knee pain due to degenerative joint disease. The risks and benefits of her 2nd Euflexxa injection were discussed at length with the patient. The patient wished to proceed. Prior to the injection I aspirated 18 cc of clear fluid from her left knee. The patient tolerated the injection well. She will continue with her home exercise program. She will follow up next week as scheduled. Feel free to call me at any time should questions regarding her orthopedic management arise. I spent 22 minutes in reviewing the patient's records and imaging studies, seeing the patient and documenting in the medical record. Orders: Orders AMB Joint Injection/Aspiration Today M17.12 - Unilateral primary osteoarthritis, left knee Coding Level of Care Code Procedure Only Diagnoses Primary osteoarthritis of left knee M17.12 CPT Codes Coding - 50915 Large joint: 98408 - Large joint ([id number])
== END 2023-10-26 11:46 | disposition home or self-care (01) ==
PROVIDERS: PCP Internal Medicine; Visit Provider Orthopaedic Surgery
DX: M17.12 Unilateral primary osteoarthritis, left knee (principal)
CPT/HCPCS: 20610

== ENCOUNTER → 2023-10-26 10:59 | Outpatient (BNVA) | payer MEDICARE, SELFPAY | PROVIDERS: PCP Internal Medicine; Visit Provider Orthopaedic Surgery | DX: M17.12 Unilateral primary osteoarthritis, left knee (principal) | CPT/HCPCS: 20610; J7323 ==

== ENCOUNTER 2023-11-02 11:06 | Outpatient (AMB) | payer MEDICARE, SELFPAY ==
--- NOTE | 2023-11-02 11:08 | A.OFFVIS_ITS ---
Intake Visit Reasons: OV- Left knee #3 Euflexxa gel injecton Intake Note: Leana is a 73 year old female who presents for her #3 Left knee Euflexxa gel injection. she states that she has gotten mild relief from the injections that she was given at her last 2 visits. She denies any fevers or chills. She takes ibuprofen as needed which gives her minimal relief. Allergies No Known Allergies Allergy (Verified 11/02/23 11:08) Medication List - Last Reconciled 11/02/23 by Bradley Escobedo MD fluticasone propionate 50 mcg/actuation (Flonase Allergy Relief) 1 spray intranasal DAILY PFSH Medical History Primary osteoarthritis of left knee Family history of breast cancer in sister Abnormal mammogram of both breasts Arthritis of left knee Osteopenia of multiple sites Hx of fracture of clavicle Rhinitis Eri's disease Laceration of forearm Surgical History History of left oophorectomy Family History Father Substance use disorder Brother Substance use disorder Colon cancer Mother Mental health disorder Colon cancer Sister Breast cancer, Onset Age: 50 Social History Housing: House Patient Tobacco Use Status: Never used Tobacco e-Cigarette/Vaping Use: Never Used Current occupational status: retired Current occupation: Right hand dominate Cognitive needs: No Hearing needs: No Vision needs: Yes Female Reproductive History Menstrual Age of Menarche: 14 Physical Exam Const Other: Well-nourished well-developed very friendly female awake alert and oriented x3 in no acute distress Extrem Other: left knee examination shows a moderate effusion, palpable crepitus with range of motion, pain with range of motion, no instability Office Procedures Joint Injection/Drain Joint Injection/Drain Primary Site: left knee Injected: 20 mg of (Euflexxa viscosupplementation) and 1% plain lidocaine Procedure: The patient tolerated the procedure well Coding 98070 - Large joint Procedure code (CPT) selection complete Assessment & Plan Assessment & Plan (1) Primary osteoarthritis of left knee: Code(s): M17.12 - Unilateral primary osteoarthritis, left knee Category: Medical Plan Ms. Mills presents with left knee pain due to degenerative joint disease. The risks and benefits of a 3rd Euflexxa injection were discussed at length with the patient. The patient wished to proceed. She tolerated the injection well. She will continue with her home exercise program. She will follow up with me on an as-needed basis should her symptoms not plateau at an unacceptable level over the next few months. Feel free to call me at any time should questions regarding her orthopedic management arise. Orders: Orders AMB Joint Injection/Aspiration Today M17.12 - Unilateral primary osteoarthritis, left knee Coding Level of Care Code Procedure Only Diagnoses Primary osteoarthritis of left knee M17.12 CPT Codes Coding - 59260 Large joint: 24249 - Large joint ([id number])
== END 2023-11-02 11:26 | disposition home or self-care (01) ==
PROVIDERS: PCP Internal Medicine; Visit Provider Orthopaedic Surgery
DX: M17.12 Unilateral primary osteoarthritis, left knee (principal)
CPT/HCPCS: 20610

== ENCOUNTER → 2023-11-02 11:06 | Outpatient (BNVA) | payer MEDICARE, SELFPAY | PROVIDERS: PCP Internal Medicine; Visit Provider Orthopaedic Surgery | DX: M17.12 Unilateral primary osteoarthritis, left knee (principal) | CPT/HCPCS: 20610; J7323 ==

== ENCOUNTER 2024-01-04 08:32 | Outpatient (AMB) | payer MEDICARE, SELFPAY ==
[2024-01-04 08:36] VITALS: BMI 24.2
--- NOTE | 2024-01-04 08:36 | A.OFFVIS_ITS ---
Vital Signs 01/04/24 08:36 Height 5 ft 4 in Weight 141 lb BMI 24.2 Intake Visit Reasons: Left knee pain Intake Note: Leana is a 73 year old female who presents with complaints of progressively worsening left knee pain. She describes her pain as sharp and severe in nature, 10/10. Her pain has gotten worse over the last few years in spite of continued non operative treatments. She has had cortisone injections which seemed to aggravate her pain. She has also had viscosupplementation injections earlier this year which gave her minimal relief. The patient has done physical therapy exercises which aggravated her pain. The patient has difficulty walking even short distances because of her pain. She has tried Tylenol and meloxicam which gave her minimal relief. At this point the patient's left knee pain is interfering with her activities of daily living and her ability to sleep well through the night. Allergies No Known Allergies Allergy (Verified 01/04/24 08:52) Medication List - Last Reconciled 01/04/24 by Bradley Escobedo MD fluticasone propionate 50 mcg/actuation (Flonase Allergy Relief) 1 spray intranasal DAILY meloxicam 15 mg PO DAILY PRN tramadol 50 mg PO Q12H PRN 15 days PFSH Medical History Primary osteoarthritis of left knee Family history of breast cancer in sister Abnormal mammogram of both breasts Arthritis of left knee Osteopenia of multiple sites Hx of fracture of clavicle Rhinitis Eri's disease Laceration of forearm Surgical History History of left oophorectomy Family History Father Substance use disorder Brother Substance use disorder Colon cancer Mother Mental health disorder Colon cancer Sister Breast cancer, Onset Age: 50 Social History Housing: House Patient Tobacco Use Status: Never used Tobacco e-Cigarette/Vaping Use: Never Used Current occupational status: retired Current occupation: Right hand dominate Cognitive needs: No Hearing needs: No Vision needs: Yes Female Reproductive History Menstrual Age of Menarche: 14 Physical Exam Vital Signs: BMI result Body Mass Index 24.2 Const Other: Well-nourished well-developed very friendly female awake alert and oriented x3 in no acute distress Extrem Other: Bilateral lower extremity examination shows good capillary refill, no skin lesions noted, normal sensation light touch Left knee examination shows a minimal effusion, palpable crepitus with range of motion, pain with range of motion, range of motion from -3 degrees to 115 degrees, no instability Results Reviewed Results Reviewed: X-rays of the patient's left knee show end-stage degenerative joint disease with grade 4 [id number] arthritis in the patellofemoral joint, subchondral sclerosis, osteophyte formation, no acute bony abnormalities Assessment & Plan Assessment & Plan (1) Primary osteoarthritis of left knee: Code(s): M17.12 - Unilateral primary osteoarthritis, left knee Category: Medical (2) Left knee pain: Code(s): M25.562 - Pain in left knee Category: Medical Plan Mrs. Mills presents with progressively worsening left knee pain due to end- stage degenerative joint disease. I had a lengthy discussion with the patient regarding the treatment options. At this point she has failed continued non operative treatments. The risks and benefits of left total knee replacement surgery were discussed at length with the patient. The patient wishes to proceed with surgery. She will be scheduled for next available date. I will see her back 1 week prior to her surgery to answer any final questions that she might have. Feel free to call me at any time should questions regarding her orthopedic management arise. I spent 21 minutes in reviewing the patient's records and imaging studies, seeing the patient and documenting in the medical record. Coding Level of Care Code Est Pt Level 3 (15487) Diagnoses Primary osteoarthritis of left knee M17.12 Left knee pain M25.562
== END 2024-01-04 09:03 | disposition home or self-care (01) ==
PROVIDERS: PCP Internal Medicine; Visit Provider Orthopaedic Surgery
DX: M17.12 Unilateral primary osteoarthritis, left knee (principal)
CPT/HCPCS: 99213

== ENCOUNTER → 2024-01-04 08:32 | Outpatient (BNVA) | payer MEDICARE, SELFPAY | PROVIDERS: PCP Internal Medicine; Visit Provider Orthopaedic Surgery | DX: M17.12 Unilateral primary osteoarthritis, left knee (principal); M25.562 Pain in left knee | CPT/HCPCS: 99212 ==

== ENCOUNTER → 2024-04-03 08:05 | Outpatient (BNV) | payer MEDICARE, SELFPAY | PROVIDERS: Admitting Provider Orthopaedic Surgery; PCP Internal Medicine; Visit Provider Internal Medicine Cardiovascular Disease | DX: M17.12 Unilateral primary osteoarthritis, left knee (principal); Z01.810 Encounter for preprocedural cardiovascular examination | CPT/HCPCS: 93010 ==

== ENCOUNTER → 2024-04-04 08:48 | Outpatient (BNVA) | payer MEDICARE, SELFPAY | PROVIDERS: PCP Internal Medicine | DX: Z01.818 Encounter for other preprocedural examination (principal); M17.12 Unilateral primary osteoarthritis, left knee; M85.89 Other specified disorders of bone density and structure, multiple sites; E06.3 Autoimmune thyroiditis | CPT/HCPCS: 96127; 99212 ==

== ENCOUNTER 2024-04-04 13:19 | Outpatient (AMB) | payer MEDICARE, SELFPAY ==
[2024-04-04 14:10] VITALS: BP 130/84; PULSE 73; O2SAT 96; BMI 24.2
--- NOTE | 2024-04-04 14:10 | A.OFFPC_ITS ---
Vital Signs 04/04/24 14:10 Height 5 ft 4 in Weight 141 lb BMI 24.2 BP 130/84 Blood Pressure Location Lt brachial Position Sitting Pulse 73 Pulse Source Pulse Oximeter Pulse Oximetry (%) 96 Oxygen Delivery Method Room Air Intake Visit Reasons: Lt Total Knee Arthroplasty Intake Note: Pt is here today for her pre-op Lt knee arthroplasty Dr. Escobedo 05/01/24 Allergies No Known Allergies Allergy (Verified 04/04/24 14:53) Medication List - Last Reconciled 04/04/24 by Rachel Torres MD fluticasone propionate 50 mcg/actuation (Flonase Allergy Relief) 1 spray intranasal DAILY meloxicam 15 mg PO DAILY PRN walker Folding front wheeled walker Tobacco use date assessed: 04/04/24 Fall risk assessment: No Falls in past year Last assessed Fall Risk: 04/04/24 Dental Screening Dental Screen Date: 04/04/24 Did you have a dental visit in the last 12 months?: Yes Did you have a dental problem in the last 6 months where you did not have access to dental care?: No Was dental information given to patient?: Patient has dentist HPI Lt Total Knee Arthroplasty HPI Details 73-year-old lady with history of Eri's disease, osteopenia of multiple sites, primary osteoarthritis in left knee, here today for preoperative exam for left total knee arthroplasty scheduled for 05/01/2024, requested by Dr Escobedo. She has been feeling well, taking meloxicam as needed which helps temporarily relief pain in her left knee patient however has difficulty with walking for extended periods of time and now complains that her left hip and her left ankle has started her as well. [facility] Medical History Primary osteoarthritis of left knee Family history of breast cancer in sister Abnormal mammogram of both breasts Arthritis of left knee Osteopenia of multiple sites Hx of fracture of clavicle Rhinitis Eri's disease Laceration of forearm Surgical History History of left oophorectomy Family History Father Substance use disorder Brother Substance use disorder Colon cancer Mother Mental health disorder Colon cancer Sister Breast cancer, Onset Age: 50 Social History Housing: House Patient Tobacco Use Status: Never used Tobacco e-Cigarette/Vaping Use: Never Used service: No Current occupational status: retired Current occupation: Right hand dominate Cognitive needs: No Hearing needs: No Vision needs: Yes Female Reproductive History Menstrual Age of Menarche: 14 Questionnaire PHQ-9 Over the last 2 weeks, how often have you been bothered by any of the following problems? 1. Little interest or pleasure in doing things: not at all 2. Feeling down, depressed, or hopeless: not at all 3. Trouble falling or staying asleep, or sleeping too much: not at all 4. Feeling tired or having little energy: not at all 5. Poor appetite or overeating: not at all 6. Feeling bad about yourself - or that you are a failure or have let yourself or your family down: not at all 7. Trouble concentrating on things, such as reading the newspaper or watching television: not at all 8. Moving or speaking so slowly that other people could have noticed. Or the opposite - being so fidgety or restless that you have been moving around a lot more than usual: not at all 9. Thoughts that you would be better off or of hurting yourself in some way: not at all Total score: 0 Depression Screening Interpretation: Negative Depression Screening Done: Yes 65134 - PHQ-9 Billing: Yes Source: Developed by Drs. Hesham Warren, Poppy Berumen, Carl Acosta and colleagues, with an educational renuka from [employer]. Thrive Questionnaire Date Thrive assessed: 09/24/23 I am a: Patient What is your living situation today?: I have a steady place to live Within the past 12 months, did the food you bought not last and you didn't have the money to get more?: Never true Within the past 12 months, did you worry whether your food would run out before you got money to buy more?: Never true Do you have trouble paying for medicines?: No Do you have trouble getting transportation to medical appointments?: No Do you have trouble paying your heating and electricity bill?: No Do you have trouble taking care of your child, family member or friend?: No Do you have trouble with day-to-day activities such as bathing, preparing meals, shopping, managing finances, etc.?: No Are you currently unemployed and looking for a job?: No Are you interested in more education?: No Please select the resources that you would like help with: None Currently or been in a relationship where the following occur: No concerns reported THRIVE Score: 0 AUDIT C Alcohol Use Questionnaire (AUDIT-C) 1. How often do you have a drink containing alcohol?: 4 or more times a week 2. How many drinks containing alcohol do you have on a typical day when you are drinking?: 1 or 2 3. How often do you have six or more drinks on one occasion?: Never Total Score: 4 ONEIL-7 AMB Questionnaire ONEIL-7 Date ONEIL - 7 assessed: 09/24/23 Feeling nervous, anxious, or on edge: 0 = Not at all Not being able to stop or control worryin = Not at all Worrying too much about different things: 0 = Not at all Trouble relaxin = Not at all Being so restless that it is hard to sit still: 0 = Not at all Becoming easily annoyed or irritable: 0 = Not at all Feeling afraid as if something awful might happen: 0 = Not at all Total ONEIL-7 score (0-4 normal; 5-9 mild; 10-14 moderate; 15-21 severe): 0 Source: Developed by Drs. Hesham Warren, Poppy Berumen, Carl Acosta and colleagues, with an educational renuka from [employer]. ONEIL-7 Assessment Billing ONEIL-7 Assessment Tool: ONEIL-7 Assessment 24598 Review of Systems Const Reports no additional complaints Eyes Reports no additional complaints ENT Reports no additional complaints Card Denies chest pain, Denies syncope, Denies pedal edema and Denies lightheadedness Resp Denies cough, Denies hemoptysis and Denies wheezing GI Reports no additional complaints Reports no additional complaints Musc Reports arthralgias (left knee) and Reports joint swelling (left knee) Skin/Breast Denies breast skin changes, Denies breast pain, Denies breast mass, Denies new lesions and Denies rash Neuro Reports no additional complaints and Denies syncope Psych Reports no additional complaints Endo Reports no additional complaints Bishop/Lymph Reports no additional complaints Aller/Immun Denies wheezing Physical exam (Primary Care) Vital Signs: Last Vital Signs Pulse 73 04/04/24 14:10 BP 130/84 04/04/24 14:10 Pulse Ox 96 04/04/24 14:10 Oxygen Delivery Method Room Air 04/04/24 14:10 BMI result Body Mass Index 24.2 Tobacco/Smoking Status: Tobacco use Status Tobacco use date assessed 04/04/24 04/04/24 14:13 Patient Tobacco Use Status Never used Tobacco 04/04/24 14:13 e-Cigarette/Vaping Use Never Used 04/04/24 14:13 PHQ-9: PHQ-9 Score PHQ-9: Total score 0 04/04/24 15:02 Depression Screening Interpretation: Negative Thrive Assessment: Date of Thrive Assessment Date Thrive assessed 09/24/23 04/04/24 14:13 Currently or been in a relationship where the following occur: No concerns reported Const Other: Alert oriented pt 3, no acute distress, normal gait HENMT Head: Yes normocephalic Ears: TM's normal bilaterally General nose exam: Normal external nose present Face and sinus: Yes face symmetric Mouth: Normal oral and palatal mucosa present and moist mucous membranes Eyes General: appearance normal, both eyes and all related structures Neck Neck: Yes full ROM, Yes no lymphadenopathy, Yes no meningeal signs and Yes supple Thyroid: Thyroid normal Resp Effort & Inspection: normal respiratory effort and able to speak in complete sentences Auscultation: clear to auscultation bilaterally Cardio Other: S1-S2 present regular rate and rhythm Bruits: no abdominal aortic bruits GI Palpation (GI): No Abdominal aortic bruit present, Soft to palpation, nontender, no guarding and no masses General: Yes no CVA tenderness Back/Spine/Pelvis Back: no CVA tenderness and No back tenderness Skin General skin exam: no rashes or lesions noted Neuro General: tone normal, moves all extremities, Normal light touch and pain sensation, no meningeal signs, no focal motor deficits and CN's II-XI intact bilaterally Extrem Other: Tenderness on palpation over anterior medial aspect of left knee, positive crepitus noted in left knee joint General: Yes full ROM, Yes no pedal edema and Yes no calf tenderness Psych Appearance: grossly normal and well kempt Mental Status: mental status grossly normal Speech and movement: Normal speech and movement present Affect: normal affect Attitude: cooperative Thought process: Normal thought process present Thought content: Normal thought content present Coding Level of Care Code Est Pt Level 4 (90614) Diagnoses Preoperative examination Z01.818 Primary osteoarthritis of left knee M17.12 Osteopenia of multiple sites M85.89 Eri's disease E06.3 Additional Codes ONEIL-7 Assessment Billing - ONEIL-7 Assessment Tool: ONEIL-7 Assessment 13420 ([id number]) PHQ-9 - 63636 - PHQ-9 Billing: Yes ([id number]) Assessment & Plan Assessment & Plan (1) Preoperative examination: Code(s): Z01.818 - Encounter for other preprocedural examination Plan: 73-year-old lady here to for preoperative exam for total left knee knee arthroplasty scheduled for 05/01/24. She has no pulmonary or cardiac disease. Pre-operative exam is unremarkable. EKG shows normal sinus rhythm no acute ST-T changes . Latest labs showed TSH and free T4 , serum electrolytes, renal function, fasting blood sugar calcium are all within normal limits . Patient with low cardiac risk index for proposed surgery (2) Primary osteoarthritis of left knee: Code(s): M17.12 - Unilateral primary osteoarthritis, left knee Category: Medical Plan: Patient is scheduled for left total knee arthroplasty on 05/01/2024 (3) Osteopenia of multiple sites: Code(s): M85.89 - Other specified disorders of bone density and structure, multiple sites Category: Medical Plan: Has an appointment for a repeat bone density scan at [facility] next month. 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 Patient currently asymptomatic
== END 2024-04-04 15:20 | disposition home or self-care (01) ==
LOC: HO.HMCC 13:20
PROVIDERS: PCP Internal Medicine; Visit Provider Internal Medicine
DX: Z01.818 Encounter for other preprocedural examination (principal); M17.12 Unilateral primary osteoarthritis, left knee; M85.89 Other specified disorders of bone density and structure, multiple sites; E06.3 Autoimmune thyroiditis

== ENCOUNTER 2024-04-14 21:04 | Observation (INO) | payer MEDICARE, SELFPAY ==
--- NOTE | 2024-04-14 | ECG_ITS ---
Test Reason : syncapol episode Blood Pressure : / mmHG Vent. Rate : 065 BPM Atrial Rate : 065 BPM P-R Int : 154 ms QRS Dur : 078 ms QT Int : 422 ms P-R-T Axes : 003 007 012 degrees QTc Int : 438 ms Normal sinus rhythm Minimal voltage criteria for LVH, may be normal variant ( R in aVL ) Abnormal ECG When compared with ECG of 03-APR-2024 08:04, No significant change was found Referred By: Generic ED Physician Electronically Signed By:Sandeep Wagner
[2024-04-14 21:20] VITALS: BP 113/84; PULSE 70; O2SAT 100; BMI 26.1
[2024-04-14 21:58] LABS: Anion Gap 10 (12-20); Blood Urea Nitrogen 20 mg/dL (9-16); Carbon Dioxide 23 mmol/L (22-29); Chloride 107 mmol/L (96-108); Creatinine Clr Calc Pharmacy 66.5; Estimated Glomerular Filt Rate > 60; Glucose Random 127 mg/dL (60-115); Magnesium 2.2 mg/dL (1.6-2.6); Sodium 136 mmol/L (135-145)
[2024-04-14 21:59] LABS: Hematocrit 35.8 % (37.0-47.0); Hemoglobin 12.2 g/dl (12.0-16.0); Mean Corpuscular HGB Conc 34.1 g/dl (31.0-35.0); Mean Corpuscular Hemoglobin 31.9 pg (27.0-33.0); Mean Corpuscular Volume 93.7 fL (80.0-98.0); Mean Platelet Volume 9.7 fL (9.4-12.3); Platelet Count 182 X10*3/uL (160-400); Red Blood Count 3.82 X10*6/uL (4.20-5.50); Red Cell Distribution Width 13.1 % (11.0-16.0); White Blood Count 5.5 X10*3/uL (4.8-10.8)
[2024-04-14 22:06] LABS: Prothrombin Time 11.6 SEC (10.9-12.4)
[2024-04-14 22:11] LABS: Troponin-I High Sensitivity < 2.7 ng/L (<3.5-17.0)
[2024-04-14 22:41] VITALS: BP 111/55; PULSE 70; RESP 16; TEMP 36.8; O2SAT 95
[2024-04-14 23:16] VITALS: O2SAT 99
--- NOTE | 2024-04-14 23:20 | PC.NURSE ---
Pt continues to be asymptomatic, ambulated to bathroom supervised, without difficulty.
[2024-04-15] VITALS (9 sets, daily range): BP systolic 120–150; BP diastolic 67–85; PULSE 72–93; RESP 18–19; TEMP 36.5–36.9; O2SAT 97
--- NOTE | 2024-04-15 00:32 | ED.DIZZY ---
HPI - Dizziness General Chief Complaint: Syncope Stated Complaint: SYNCOPAL EPISODE Time Seen by Provider: 04/15/24 00:20 Source: patient and EMS Mode of arrival: EMS Limitations: no limitations History of Present Illness ED Provider: Dr. Brenda Cassidy HPI Narrative: Patient comes to the emergency room complaining of a near syncopal episode. According to the patient and her family, the patient was playing cards with her family. While patient was sitting, patient had an episode of confusion, looking around not answering any questions. Patient put her head down, became pale and diaphoretic. Patient does not remember much of what happened. EMS was called, on arrival to the patient's residence, EMS had a blood pressure of 78/46. At this time, patient states that she feels better. Patient is not sure what happened. Patient has no past medical history, patient only takes meloxicam p.r.n. patient states that earlier today she did have 2 glasses of wine. However, patient states that she had already eaten, states that she was not feeling intoxicated. Patient denies using any drugs. Related Data Home Medications ?Medication ?Instructions ?Recorded ?Confirmed fluticasone propionate 50 1 spray intranasal DAILY 09/16/21 04/04/24 mcg/actuation nasal spray,suspension (Flonase Allergy Relief) Previous Rx's ?Medication ?Instructions ?Recorded meloxicam 15 mg tablet 15 mg PO DAILY PRN pain #30 tabs 12/16/23 walker #1 ea 03/31/24 Allergies Allergy/AdvReac Type Severity Reaction Status Date / Time No Known Allergies Allergy Verified 04/14/24 21:34 Review of Systems Review of Systems: Constitutional : No Weight loss, No Fever, No Chills, No Night Sweats, No Fatigue, No Malaise ENT/Mouth : No Hearing loss, No Ear Pain, No Nasal Congestion, No Sinus Pain, No Hoarseness, No sore throat, No Rhinorrhea, No Swallowing Difficulty Eyes: No Eye Pain, No Swelling, No Redness, No Foreign Body, No Discharge, No Vision Changes Cardiovascular : No Chest Pain, No SOB, No Dyspnea on Exertion, No Orthopnea, No Edema, No Palpitations Respiratory : No Cough, No Sputum, No Wheezing, No Smoke Exposure, No Dyspnea Gastrointestinal : No Nausea, No Vomiting, No Diarrhea, No Constipation, No abdominal Pain, No Hematochezia, No Melena Genitourinary : no irregular bleeding, No Dysuria, No Urinary Frequency, No Hematuria, No Urinary Incontinence, No Urgency, No Flank Pain, No Urinary Flow Changes, No Hesitancy Musculoskeletal : No joint pain, No Myalgias, No Joint Swelling Skin : No Skin Lesions, No rash Neuro : No Weakness, No Numbness, No Paresthesias, complaining of near syncope, dizziness. Mild headache at this time Psych : No Anxiety/Panic, No Depression, No SI/HI/AH/VH, No Social Issues, Heme/Lymph: No Bruising, No Bleeding,No Lymphadenopathy Endocrine : No Polyuria, No Polydipsia, No Temperature Intolerance [facility] Past Medical History Medical History Primary osteoarthritis of left knee Family history of breast cancer in sister Abnormal mammogram of both breasts Arthritis of left knee Osteopenia of multiple sites Hx of fracture of clavicle Rhinitis Eri's disease Laceration of forearm Surgical History History of left oophorectomy Family History Family History Father Substance use disorder Brother Substance use disorder Colon cancer Mother Mental health disorder Colon cancer Sister Breast cancer, Onset Age: 50 Social History Social History Housing: House Alcohol intake: current Alcohol intake frequency: 0-2 drinks per day Alcohol type: wine Patient Tobacco Use Status: Never used Tobacco Smoked in Last 30 Days: No e-Cigarette/Vaping Use: Never Used Use of substances other than those prescribed or required for medical reasons: No Advance Directives: Yes Advance Directives on File: Yes Advance Directives Date on File: 09/24/23 service: No Current occupational status: retired Current occupation: Right hand dominate Cognitive needs: No Hearing needs: No Vision needs: Yes Physical Exam Vital Signs: Vital Signs: Last Vital Signs Temp 98.2 F 04/14/24 22:41 Pulse 85 04/15/24 00:50 Resp 16 04/14/24 22:41 BP 139/78 04/15/24 00:50 Pulse Ox 99 11/15/24 23:16 O2 Del Method Room Air 11/15/24 23:16 BMI result Body Mass Index 26.1 Const: Other: Appearance: Alert. Oriented X3. No acute distress. Eyes: Pupils equal, round and reactive to light. ENT: Pharynx normal. Neck: Normal inspection. Neck supple. No lymph nodes noted. No crepitus CVS: Normal heart rate and rhythm. Pulses normal. Normal S1 and S2 Respiratory: No respiratory distress. Breath sounds normal. No Wheezing. No rales Abdomen: Soft and nontender. No rigidity. No distention. Skin: Skin warm and dry. Normal skin color. Normal skin turgor. Extremities: No lower extremity edema. No Lacerations. No Rash Neuro: Oriented X 3. No motor deficit. No sensory deficit. Moving all extremities. No slurred speech. CN 2 through 12 grossly intact Psych: calm, cooperative, normal affect Course Course Course Narrative: All of patient's labs pending -patient given p.o. acetaminophen for mild headache. Otherwise patient feels well. At this time denies chest pain shortness of breath or dizziness. Medications Administered Discontinued Medications Generic Name Dose Route Start Last Admin Trade Name Freq PRN Reason Stop Dose Admin Acetaminophen 650 mg 04/15/24 00:37 04/15/24 00:51 Acetaminophen 325 Mg Tablet PO 04/15/24 00:38 650 mg ONCE ONE Administration Medical Decision Making Medical Decision Making [facility] Narrative: -my interpretation of EKG, normal sinus rhythm, heart rate 65, no ST segment depression or elevation, no T-wave inversion, QTC 438 My interpretation of labs: Patient's hematology and chemistry within normal limits, troponin negative. Patient urinalysis negative for UTI, negative for Toxicology, SI no level 22. Patient's orthostatics are negative -here in the emergency room, patient has not had any arrhythmias, patient asymptomatic. -I discussed the patient with our hospitalist Dr. Francis, patient will be admitted under observation status. Differential Diagnosis Differential Diagnoses: The differential diagnosis associated with the presentation includes (Orthostatic hypotension, cardiac arrhythmia, vasovagal syncope) Admission/Observation Consideration of admission/observation: Escalation of care including admission/observation considered Consult Healthcare Provider Management of the patient was discussed with: Hospitalist Lab Data [facility] Lab Attestation statement: I reviewed the patient's lab results. 04/14/24 21:38 04/14/24 21:38 Labs: Lab Results 04/14/24 04/15/24 Range/Units 21:38 01:09 WBC 5.5 (4.8-10.8) X10*3/uL RBC 3.82 L (4.20-5.50) X10*6/uL Hgb 12.2 (12.0-16.0) g/dl Hct 35.8 L (37.0-47.0) % MCV 93.7 (80.0-98.0) fL MCH 31.9 (27.0-33.0) pg MCHC 34.1 (31.0-35.0) g/dl RDW 13.1 (11.0-16.0) % Plt Count 182 (160-400) X10*3/uL MPV 9.7 (9.4-12.3) fL Absolute Nucleated RBC 0.000 (0.0-0.012) X10*3/uL Nucleated RBC % (auto) 0.0 (0.0-0.2) /100WBC PT 11.6 (10.9-12.4) SEC INR 1.0 (0.9-1.1) Sodium 136 (135-145) mmol/L Potassium 4.0 (3.3-5.1) mmol/L Chloride 107 (96-108) mmol/L Carbon Dioxide 23 (22-29) mmol/L Anion Gap 10 L (12-20) BUN 20 H (9-16) mg/dL Creatinine 0.74 (0.5-1.4) mg/dL Estim Creat Clear Calc 66.5 Estimated GFR > 60 Random Glucose 127 H (60-115) mg/dL Calcium 9.0 D (8.4-10.2) mg/dL Magnesium 2.2 (1.6-2.6) mg/dL Troponin I High Sens < 2.7 (<3.5-17.0) ng/L Urine Color Yellow Urine Appearance Clear Urine pH 6.5 (5.0-9.0) Ur Specific [place] <= 1.005 (1.005-1.025) Urine Protein Negative (Neg-Trace) mg/dL Urine Glucose (UA) Negative (Negative) mg/dL Urine Ketones Negative (Negative) mg/dL Urine Blood Negative (Negative) Urine Nitrite Negative (Negative) Ur Leukocyte Esterase Small (1+) H (Negative) Urine RBC 0-2 (0-2) /HPF Urine WBC 6-10 H (0-5) /HPF Ur Squamous Epith Cells 0-2 (0-2) /HPF Urine Bacteria None Seen (None Seen) Hyaline Casts 0-2 (0-2) /LPF Urine Opiates Screen Not Detected (Not Detect) Ur Buprenorphine Scrn Not Detected (Not Detect) ng/mL Ur Oxycodone Screen Not Detected (Not Detect) ng/mL Urine Methadone Screen Not Detected (Not Detect) ng/mL Urine Fentanyl Screen Not Detected (Not Detect) Ur Barbiturates Screen Not Detected (Not Detect) Ur Phencyclidine Scrn Not Detected (Not Detect) Ur Amphetamines Screen Not Detected (Not Detect) U Benzodiazepines Scrn Not Detected (Not Detect) Urine Cocaine Screen Not Detected (Not Detect) U Marijuana (THC) Screen Not Detected (Not Detect) Ethyl Alcohol 22 mg/dL Independent Interpretation I performed an independent interpretation of an: EKG Critical Care Time Critical Care Time Critical Care Time: Yes Total Critical Care Time: 45 Attestation: I have personally provided critical care time. Time includes review of lab data, radiology results, discussion with consultants, and monitoring for potential decompensation. Intervention performed as documented. Discharge Plan Discharge Clinical Impression: Near syncope Patient Disposition: Admitted as Observation Prescriptions: No Action meloxicam 15 mg tablet 15 mg PO DAILY PRN (Reason: pain) Qty: 30 2RF (DME) jaymie Misc See Rx Instructions .ROUTE .MEDSUPPLY Qty: 1 0RF Rx Instructions: Folding front wheeled walker fluticasone propionate [Flonase Allergy Relief] 50 mcg/actuation spray,suspension 1 spray intranasal DAILY Rx Instructions: administer into each nostril Print Language: [place]
[2024-04-15 00:51] LABS: Ethanol 22 mg/dL
[2024-04-15] MEDS: Acetaminophen 325 MG TABLET 650 MG PO (00:51)
[2024-04-15 01:15] LABS: Appearance Urine Clear; Color Urine Yellow; Glucose Urine UA Negative (Negative); Leukocyte Esterase Urine Small (1+) (Negative); Nitrite Urine Negative (Negative); PH 6.5 (5.0-9.0); Specific Gravity - Urine <= 1.005 (1.005-1.025); UMIC TRIGGER UACC YES; Urine Blood Negative (Negative); Urine Ketones Negative (Negative); Urine Protein Negative (Neg-Trace)
[2024-04-15 01:18] LABS: Bacteria Urine None Seen (None Seen); Hyaline Casts Urine 0-2 /LPF (0-2); RBC Urine 0-2 /HPF (0-2); Squamous Epithelial Cell Urine 0-2 /HPF (0-2); UACC Culture Trigger YES
[2024-04-15 01:25] LABS: Amphetamine Screen Urine Not Detected (Not Detect); Barbiturates, Urine Not Detected (Not Detect); Benzodiazepines Screen Urine Not Detected (Not Detect); Buprenorphine Scr Not Detected (Not Detect); Cannabinoid Screen Urine Not Detected (Not Detect); Cocaine Screen Urine Not Detected (Not Detect); Fentanyl, urine Not Detected (Not Detect); Methadone Screen, Urine Not Detected (Not Detect); Opiate Screen Urine Not Detected (Not Detect); Oxycodone Screen Urine Not Detected (Not Detect); Phencyclidine Screen Urine Not Detected (Not Detect)
--- NOTE | 2024-04-15 03:48 | P.HPHOSP_ITS ---
History of Present Illness Date of Service: 04/15/24 Attending physician on admission: Arelis Chaudhry Chief Complaint: Dizziness Leana Mills is a 73 years old woman with no significant past medical history was brought to the emergency department via EMS after she had an event of dizziness and brief confusion last night around 9 p.m. while she was playing cards. She was in sitting position while this happened. She denied loss of consciousness. Her spouse who was at bedside weakness this event. The patient did not had seizure activity or any concerning symptoms of stroke such as speech difficulty, focal weakness or facial droop. There is no palpitations, chest pain or shortness on breath. She does not have history of cardiac issues. She does not take any medication at daily basis and has been taking meloxicam for recently diagnosed left Guo's cyst. She stated that she was drinking tonight and that she drinks a glass of wine, around 6 oz daily. She said that last night she drank 2 glasses of wine. She admits not drinking much water daily. Denied use of other substances. Since arrival to the emergency department she has been experiencing headache and and has urinated around 3 times already. Per EMS her blood pressure was found to be 70/46 for which she received 400 mL of normal saline. In the ED, she was initially found to have a blood pressure 111/55. Most recent BP is 120/75. Blood workup showed no significant electrolyte imbalances. Glucose is 127. ETOH level is 22. ECG showed normal sinus, HR 65 bpm. Urine drug screen is negative. ED tx: Tylenol 650 mg PO Review of Systems 2 Review of Systems: All 12 systems were reviewed and normal except as noted in HPI. [facility] Medical History Primary osteoarthritis of left knee Family history of breast cancer in sister Abnormal mammogram of both breasts Arthritis of left knee Osteopenia of multiple sites Hx of fracture of clavicle Rhinitis Eri's disease Laceration of forearm Family History Father Substance use disorder Brother Substance use disorder Colon cancer Mother Mental health disorder Colon cancer Sister Breast cancer, Onset Age: 50 Surgical History History of left oophorectomy Social History Housing: House Alcohol intake: current Alcohol intake frequency: 0-2 drinks per day Alcohol type: wine Patient Tobacco Use Status: Never used Tobacco Smoked in Last 30 Days: No e-Cigarette/Vaping Use: Never Used Use of substances other than those prescribed or required for medical reasons: No Advance Directives: Yes Advance Directives on File: Yes Advance Directives Date on File: 09/24/23 service: No Current occupational status: retired Current occupation: Right hand dominate Cognitive needs: No Hearing needs: No Vision needs: Yes Meds Allergies Allergy/AdvReac Type Severity Reaction Status Date / Time No Known Allergies Allergy Verified 04/14/24 21:34 Active Medications: Current Medications Sodium Chloride (Ns) 500 mls @ 500 mls/hr IV .Q1H STA Stop: 04/15/24 04:44 Home Medications ?Medication ?Instructions ?Recorded ?Confirmed ?Last Taken ?Type fluticasone propionate 50 1 spray intranasal DAILY 09/16/21 04/04/24 Unknown History mcg/actuation nasal spray,suspension (Flonase Allergy Relief) Physical Exam 2 Vital Signs and Narrative: Vital Signs: Last Vital Signs Temp 98.2 F 04/14/24 22:41 Pulse 85 04/15/24 00:50 Resp 16 04/14/24 22:41 BP 139/78 04/15/24 00:50 Pulse Ox 99 04/14/24 23:16 O2 Del Method Room Air 04/14/24 23:16 BMI result Body Mass Index 26.1 Constitutional - Awake and Alert, No apparent distress HEENT - PER, EOMI. Heart - S1S2, RRR, (+) murmur. Lungs - Normal lung expansion, Normal respiratory effort, No respiratory distress, CTA bilaterally Abdomen - Nontenderness. Extremities - no calf tenderness bilaterally, no swelling Musculoskeletal - Normal inspection, normal ROM Skin - Warm/Dry Neurological - Alert & oriented x3, CN II!-XII in tact. Spontaneously moving all extremities. Normal speech. Psychological - Appropriate affect Results Labs 04/14/24 21:38 04/14/24 21:38 Labs: Laboratory Results - last 24 hr 04/14/24 04/15/24 21:38 01:09 MCV 93.7 MCH 31.9 MCHC 34.1 RDW 13.1 Plt Count 182 MPV 9.7 Absolute Nucleated RBC 0.000 Nucleated RBC % (auto) 0.0 PT 11.6 INR 1.0 Anion Gap 10 L Estim Creat Clear Calc 66.5 Estimated GFR > 60 Random Glucose 127 H Calcium 9.0 D Magnesium 2.2 Troponin I High Sens < 2.7 Urine Color Yellow Urine Appearance Clear Urine pH 6.5 Ur Specific [place] <= 1.005 Urine Protein Negative Urine Glucose (UA) Negative Urine Ketones Negative Urine Blood Negative Urine Nitrite Negative Ur Leukocyte Esterase Small (1+) H Urine RBC 0-2 Urine WBC 6-10 H Ur Squamous Epith Cells 0-2 Urine Bacteria None Seen Hyaline Casts 0-2 Urine Opiates Screen Not Detected Ur Buprenorphine Scrn Not Detected Ur Oxycodone Screen Not Detected Urine Methadone Screen Not Detected Urine Fentanyl Screen Not Detected Ur Barbiturates Screen Not Detected Ur Phencyclidine Scrn Not Detected Ur Amphetamines Screen Not Detected U Benzodiazepines Scrn Not Detected Urine Cocaine Screen Not Detected U Marijuana (THC) Screen Not Detected Ethyl Alcohol 22 Assessment and Plan (1) Near syncope: Status: Acute (2) Hypotension: Qualifiers: Hypotension type: hypotension due to hypovolemia Qualified Code(s): E 86.1 - Hypovolemia Status: Acute (3) Dehydration: Status: Acute Plan Leana Mills is a 73 y/o woman admitted with: * Near-syncope likely secondary to hypotension due to dehydration/hypovolemia. Observation. Telemetry. IV fluids. Orthostatic vital signs with every shift. Check TTE. Cardiology consult. DVT prophylaxis: Early ambulation with assistance. Code status: Full Quality Stroke Does the patient have a stroke diagnosis?: No VTE Prior VTE?: No VTE Risk Level:: Medical - moderate - high VTE Device Contraindication: Treatment Not Indicated VTE Drug Contraindication: Treatment Not Indicated
[2024-04-15 04:40] LABS: MANUAL DIFF FLAG NO
[2024-04-15 04:42] LABS: Basophils Percent Auto 0.6 % (0-2); Eosinophils Absolute Auto 0.2 X10*3/uL (0.0-0.4); Eosinophils Percent Auto 2.5 % (0-4); Hematocrit 37.1 % (37.0-47.0); Hemoglobin 12.5 g/dl (12.0-16.0); Imm Gran Abs Auto 0.02 X10*3/uL (0.00-0.03); Imm Gran Pct Auto 0.3 % (0.0-0.4); Lymphocytes Absolute Auto 1.9 X10*3/uL (1.2-4.9); Lymphocytes Percent Auto 29.4 % (20-40); Mean Corpuscular HGB Conc 33.7 g/dl (31.0-35.0); Mean Corpuscular Hemoglobin 31.5 pg (27.0-33.0); Mean Corpuscular Volume 93.5 fL (80.0-98.0); Mean Platelet Volume 9.9 fL (9.4-12.3); Monocytes Absolute Auto 0.8 X10*3/uL (0.1-1.2); Monocytes Percent Auto 12.2 % (2-11); Neutrophils Absolute Auto 3.6 x10*3/uL (2.0-8.3); Platelet Count 181 X10*3/uL (160-400); Red Blood Count 3.97 X10*6/uL (4.20-5.50); Red Cell Distribution Width 12.9 % (11.0-16.0); White Blood Count 6.5 X10*3/uL (4.8-10.8)
[2024-04-15] MEDS: 0.9 % Sodium Chloride 500 ML IV (04:46)
[2024-04-15 05:13] LABS: Alanine Aminotransferase 15 U/L (0-31); Albumin Level 3.9 g/dL (3.5-5.0); Alkaline Phosphatase 61 U/L (39-117); Anion Gap 12 (12-20); Aspartate Amino Transferase 18 U/L (5-31); Bilirubin Total 0.5 mg/dL (0.0-1.0); Blood Urea Nitrogen 18 mg/dL (9-16); Calcium 9.3 mg/dL (8.4-10.2); Carbon Dioxide 22 mmol/L (22-29); Chloride 110 mmol/L (96-108); Estimated Glomerular Filt Rate > 60; Glucose Random 102 mg/dL (60-115); Magnesium 2.1 mg/dL (1.6-2.6); Sodium 140 mmol/L (135-145); Total Protein 6.4 g/dL (6.5-8.0)
[2024-04-15 05:23] LABS: Troponin-I High Sensitivity < 2.7 ng/L (<3.5-17.0)
--- NOTE | 2024-04-15 09:38 | MHC.CM.PN ---
JENNIFER 04/15. Pt self-care, lives at home with her who will transport her home at discharge. Pt states her is her HCP, copy requested. PCP: Dr. Rachel Torres
--- NOTE | 2024-04-15 09:59 | P.DS_ITS ---
DS: Providers Provider Date of Service: 04/15/24 Date of admission: 04/15/24 03:42 Date of discharge: 04/15/24 Primary care physician: Rachel Torres MD Consults: 04/15/24 03:45 Consult to Cardiology Routine Consulting Provider: [facility] Reason for consultation: Near syncope, hypotension Has provider been notified: Yes DS: Diagnosis Discharge Diagnosis (1) Near syncope: Status: Acute (2) Hypotension: Status: Acute (3) Dehydration: Status: Acute DS: Summary Hospital Course Hospital Course: Admission note HPI Leana Mills is a 73 years old woman with no significant past medical history was brought to the emergency department via EMS after she had an event of dizziness and brief confusion last night around 9 p.m. while she was playing cards. She was in sitting position while this happened. She denied loss of consciousness. Her spouse who was at bedside weakness this event. The patient did not had seizure activity or any concerning symptoms of stroke such as speech difficulty, focal weakness or facial droop. There is no palpitations, chest pain or shortness on breath. She does not have history of cardiac issues. She does not take any medication at daily basis and has been taking meloxicam for recently diagnosed left Guo's cyst. She stated that she was drinking tonight and that she drinks a glass of wine, around 6 oz daily. She said that last night she drank 2 glasses of wine. She admits not drinking much water daily. Denied use of other substances. Since arrival to the emergency department she has been experiencing headache and and has urinated around 3 times already. Per EMS her blood pressure was found to be 70/46 for which she received 400 mL of normal saline. In the ED, she was initially found to have a blood pressure 111/55. Most recent BP is 120/75. Blood workup showed no significant electrolyte imbalances. Glucose is 127. ETOH level is 22. ECG showed normal sinus, HR 65 bpm. Urine drug screen is negative. Hospital course the patient was admitted for monitoring of near syncopal episode. Noted to have low blood pressure at the seen. reported she had 2 drinks and was losing the card game. denies any palpitations or chest pain associated with the incident. No recurrence after receiving fluid bolus. Telemetry not showing any abnormalities. Trop negative. She was able to ambulate with no reported lightheadedness or dizziness. Postural pressures were stable. To be discharged home with advice to stay well hydrated and to get an Echo done as outpatient as she has scheduled surgery for early next month. She also advised to cut down alcohol use. This incident could be a result of vasovagal attack associated with alcohol intake and dehydration. Discharge plan Drink plenty of fluids and stay well hydrated cut down alcohol consumption increase physical activity as tolerated Time Attestation Discharge Coordination Time (in mins): 24 Quality: Safe Use of Opioids Does Pt have an Active Cancer Diagnosis on the Problem List?: No Quality: Stroke Does the patient have a stroke diagnosis?: No Physical Exam Vital Signs: Vital Signs: Last Vital Signs Temp 98.1 F 04/15/24 09:26 Pulse 74 04/15/24 09:26 Resp 18 04/15/24 09:26 BP 150/72 H 04/15/24 09:26 Pulse Ox 97 04/15/24 09:26 O2 Del Method Room Air 04/15/24 09:26 BMI result Body Mass Index 26.1 Const: Other: Constitutional : Awake, interactive, not in distress Neck : Normal inspection, Supple Cardiovascular : RRR, no JVP, no lower extremity edema Respiratory : good bilateral air entry, no crackles, wheezes or rhonchi Gastrointestinal: soft, lax, Normal bowel sounds, Non tender Skin : Warm, Dry Neurological : Alert & oriented x3, No focal deficit DS: Data Data Completed and Pending Labs on day of discharge: Laboratory Results - last 24 hr 04/14/24 04/15/24 04/15/24 21:38 01:09 04:13 WBC 5.5 6.5 RBC 3.82 L 3.97 L Hgb 12.2 12.5 Hct 35.8 L 37.1 MCV 93.7 93.5 MCH 31.9 31.5 MCHC 34.1 33.7 RDW 13.1 12.9 Plt Count 182 181 MPV 9.7 9.9 Immature Gran % (Auto) 0.3 Neut % (Auto) 55.0 Lymph % (Auto) 29.4 [place] % (Auto) 12.2 H Eos % (Auto) 2.5 Baso % (Auto) 0.6 Lymph # (Auto) 1.9 [place] # (Auto) 0.8 Eos # (Auto) 0.2 Baso # (Auto) 0.0 Abs Immat Gran (auto) 0.02 Absolute Neuts (auto) 3.6 Absolute Nucleated RBC 0.000 0.000 Nucleated RBC % (auto) 0.0 0.0 PT 11.6 INR 1.0 Sodium 136 140 Potassium 4.0 4.0 Chloride 107 110 H Carbon Dioxide 23 22 Anion Gap 10 L 12 BUN 20 H 18 H Creatinine 0.74 0.60 Estim Creat Clear Calc 66.5 82.0 Estimated GFR > 60 > 60 Random Glucose 127 H 102 Calcium 9.0 D 9.3 Magnesium 2.2 2.1 Total Bilirubin 0.5 AST 18 ALT 15 Alkaline Phosphatase 61 Troponin I High Sens < 2.7 < 2.7 Total Protein 6.4 L Albumin 3.9 Urine Color Yellow Urine Appearance Clear Urine pH 6.5 Ur Specific [place] <= 1.005 Urine Protein Negative Urine Glucose (UA) Negative Urine Ketones Negative Urine Blood Negative Urine Nitrite Negative Ur Leukocyte Esterase Small (1+) H Urine RBC 0-2 Urine WBC 6-10 H Ur Squamous Epith Cells 0-2 Urine Bacteria None Seen Hyaline Casts 0-2 Urine Opiates Screen Not Detected Ur Buprenorphine Scrn Not Detected Ur Oxycodone Screen Not Detected Urine Methadone Screen Not Detected Urine Fentanyl Screen Not Detected Ur Barbiturates Screen Not Detected Ur Phencyclidine Scrn Not Detected Ur Amphetamines Screen Not Detected U Benzodiazepines Scrn Not Detected Urine Cocaine Screen Not Detected U Marijuana (THC) Screen Not Detected Ethyl Alcohol 22 Discharge Plan Discharge Anticipated Discharge Date/Time: 04/15/24 09:55 Patient Disposition: Home, Self-Care Discharge Diagnosis: Near Syncope Hypotension Referrals: Rachel Torres MD [Primary Care Provider] - 1 Week Discharge Medications: Continued meloxicam 15 mg tablet 15 mg PO DAILY PRN (Reason: pain) Qty: 30 2RF (DME) jaymie Misc See Rx Instructions .ROUTE .MEDSUPPLY Qty: 1 0RF Rx Instructions: Folding front wheeled walker fluticasone propionate [Flonase Allergy Relief] 50 mcg/actuation spray,suspension 1 spray intranasal DAILY PRN (Reason: Allergic Symptoms) Rx Instructions: administer into each nostril No Action calcium carbonate-vitamin D3 [Calcium + D] 600 mg-5 mcg (200 unit) Tablet 1 tab PO DAILY Discharge Orders: Discharge Order (Routine); Ordered 04/15/24 Ordered By: Khaled Abuhashmeh Diet: Advance to usual diet Activity on Discharge: As tolerated Stand Alone Forms: Patient Portal Discharge page Print Language: Upper Sorbian Other Ambulatory Orders: [place] echo transthorac w con (Routine) Timeframe: 2 Weeks Facility: [facility] - Location: Cardiology Ordered By: Raul Mejía Care Plan Goals: Drink plenty of fluids and stay well hydrated cut down alcohol consumption increase physical activity as tolerated Health Concerns: Hypotension, dehydration Plan of Treatment: Increase fluid intake Assessment: as above
--- NOTE | 2024-04-15 10:39 | PHA.MEDREC ---
Pharmacy Consult ? Medication Reconciliation Pharmacy has completed the medication reconciliation. Spoke to pt to confirm meds.
[2024-04-15] MEDS: 0.9 % Sodium Chloride Flush 3 ML SYRINGE IVFLUSH (11:28)
--- NOTE | 2024-04-15 15:33 | MHC.CM.PN ---
Pt is medically cleared for discharge home self-care, pts to transport her home.
== END 2024-04-15 15:30 | disposition home or self-care (01) ==
LOC: HO.ED 04-15 01:46 → HO.EDOVER 04-15 03:51 → HO.IMC 04-15 07:45
PROVIDERS: Admitting Provider Internal Medicine; Emergency Provider Emergency Medicine; PCP Internal Medicine; Visit Provider Student in an Organized Health Care Education/Training Program
DX: I95.9 Hypotension, unspecified (principal); R55 Syncope and collapse; E86.0 Dehydration; R51.9 Headache, unspecified; R41.0 Disorientation, unspecified; R42 Dizziness and giddiness; M71.22 Synovial cyst of popliteal space [Baker], left knee; Z79.899 Other long term (current) drug therapy
CPT/HCPCS: 36415; 80048; 80053; 80307; 81001; 83735; 84484; 85025; 85027; 85610; 87086; 93005; 96360; 96361; 99222; 99285

== ENCOUNTER → 2024-04-14 21:29 | Outpatient (BNV) | payer MEDICARE, SELFPAY | PROVIDERS: Admitting Provider Internal Medicine; Emergency Provider Emergency Medicine; PCP Internal Medicine; Visit Provider Internal Medicine Cardiovascular Disease | DX: R94.31 Abnormal electrocardiogram [ECG] [EKG] (principal) | CPT/HCPCS: 93010 ==

== ENCOUNTER → 2024-04-15 03:42 | Outpatient (BNV) | payer MEDICARE, SELFPAY | PROVIDERS: Admitting Provider Internal Medicine; Emergency Provider Emergency Medicine; PCP Internal Medicine; Visit Provider Internal Medicine | DX: R55 Syncope and collapse (principal); E86.1 Hypovolemia; E86.0 Dehydration | CPT/HCPCS: 99235; 99499 ==

== ENCOUNTER 2024-04-21 | Outpatient (REF) | payer MEDICARE, SELFPAY | END 2024-04-21 00:01 | disposition home or self-care (01) | LOC: CF | PROVIDERS: Visit Provider Nurse Practitioner Family | DX: Z01.810 Encounter for preprocedural cardiovascular examination (principal); R55 Syncope and collapse | CPT/HCPCS: 99202 ==

== ENCOUNTER 2024-04-21 08:33 | Outpatient (AMB) | payer MEDICARE, SELFPAY ==
--- NOTE | 2024-04-21 08:31 | A.OFFPC_ITS ---
Intake Visit Reasons: TCM HCM 04/15 Hypotension Intake Note: Pt is having a TH visit for TCM/HCM Allergies No Known Allergies Allergy (Verified 04/21/24 13:27) Medication List - Last Reconciled 04/21/24 by Rachel Torres MD calcium carbonate-vitamin D3 600 mg-5 mcg (200 unit) 1 tab PO DAILY fluticasone propionate 50 mcg/actuation (Flonase Allergy Relief) 1 spray intranasal DAILY PRN walker Folding front wheeled walker Tobacco use date assessed: 04/21/24 Fall risk assessment: No Falls in past year Last assessed Fall Risk: 04/21/24 Dental Screening Dental Screen Date: 04/21/24 Did you have a dental visit in the last 12 months?: Yes Did you have a dental problem in the last 6 months where you did not have access to dental care?: No Was dental information given to patient?: Patient has dentist HPI TCM HCM 04/15 Hypotension HPI Details Telehealth visit made with 73-year-old female here for follow-up after recent ER visit.. She experienced an episode on Wednesday night around 8 or 9 PM where she felt cold and clammy; her blood sugar was found to be slightly low at the time. The onset of her symptoms was associated with a busy day involving a dinner meal of broccoli with brown rice, and doing errands the whole day and after a short walk of 30 minutes was playing cards with friends and drinking more wine than usual and she started feeling lightheaded, but did not lose consciousness. She denies any other previous episodes of similar nature except for occasional lightheadedness, particularly when she consumes cereal for breakfast. Recently, she was taking meloxicam but ceased due to surgery requirements, and she did not notice any withdrawal symptoms within that period. She is scheduled for knee surgery on May 01, 2023. A preoperative evaluation at 10 AM on the day of the conversation is scheduled for anesthesia preop prior to surgery. Previously, an EKG was performed with no abnormalities, and her recent busy day might have contributed to the hypoglycemic episode. Furthermore, she is undergoing testing to rule out any cardiac involvement, including a stress test, echocardiogram, and carotid ultrasound to ascertain cardiac health, has an appointment already scheduled with Cardiology later abbi skinner.. [facility] Medical History COVID-19 Primary osteoarthritis of left knee Family history of breast cancer in sister Abnormal mammogram of both breasts Arthritis of left knee Osteopenia of multiple sites Hx of fracture of clavicle Rhinitis Eri's disease Laceration of forearm Surgical History Hx of lumpectomy H/O colonoscopy History of left oophorectomy Family History Father Substance use disorder Brother Substance use disorder Colon cancer Mother Mental health disorder Colon cancer Sister Breast cancer, Onset Age: 50 Social History Housing: House Are you a primary healthcare network consultant to a significant other at home: No Do you presently have visiting nurse or other home services: No Alcohol intake: current Alcohol intake frequency: a few times a week Alcohol type: wine Patient Tobacco Use Status: Never used Tobacco e-Cigarette/Vaping Use: Never Used Second Hand Smoke Exposure: No Advance Directives Date on File: 09/24/23 service: No Current occupational status: retired Current occupation: Right hand dominate Cognitive needs: No Hearing needs: No Vision needs: Yes Female Reproductive History Menstrual Age of Menarche: 14 Questionnaire Thrive Questionnaire Date Thrive assessed: 03/28/24 ONEIL-7 AMB Questionnaire ONEIL-7 Date ONEIL - 7 assessed: 09/24/23 Source: Developed by Drs. Hesham Warren, Poppy Berumen, Carl Acosta and colleagues, with an educational renuka from [employer]. Review of Systems Const All systems reviewed & are unremarkable except as noted in HPI and below Eyes Denies change in vision ENT Denies dizziness Card Denies chest pain at rest, Denies chest pain with activity, Denies rapid heart rate, Denies leg edema, Denies lightheadedness, Denies dyspnea, Denies dyspnea on exertion and Denies orthopnea Resp Denies cough, Denies dyspnea and Denies dyspnea on exertion GI Denies hematochezia and Denies change in stool character Reports no additional complaints Musc Details: left knee discomfort with ambulation - continues to walk daily for exercise Denies abnormal gait, Denies limited range of motion, Denies muscle cramps, Denies muscle weakness, Denies numbness, Denies radiating pain into limb, Denies stiffness and Denies tingling Neuro Denies abnormal gait, Denies dizziness, Denies numbness and Denies tingling Endo Reports no additional complaints Bishop/Lymph Denies easy bleeding and Denies easy bruising Aller/Immun Reports no additional complaints Physical exam (Primary Care) Tobacco/Smoking Status: Tobacco use Status Tobacco use date assessed 04/21/24 04/21/24 08:33 Patient Tobacco Use Status Never used Tobacco 04/21/24 08:33 e-Cigarette/Vaping Use Never Used 04/21/24 08:33 Thrive Assessment: Date of Thrive Assessment Date Thrive assessed 03/28/24 04/21/24 08:33 Telehealth Telehealth Telehealth Platform: [employer] Location of provider rendering services: practice address Location of patient: address on file Patient Identification confirmed using: Name, : Yes Telehealth method: video Patient verbally consented to treatment: Yes Patient verbally consented to billing insurance company: Yes Patient informed of any privacy concerns related to visit: Yes Minutes spent on Phone/Video with Pt.: 15 Results Reviewed Results Reviewed: Name: Leana Mills Age/Sex: 73/F : 1950 Unit#: [id number] Attend Dr: Raul Mejía MD Re04/15/24 Status: DIS THERESA Location: [place] [address] Disch: 04/15/24 SPEC : [id number] SG: 04/15/24 STATUS: COMP REQ : [id number] RECD: 04/15/[address]: Arelis Hansen MD COMP: 04/15/24 ENTERED: 04/15/[address]: Rachel Torres MD ORDERED: CBC Auto Diff Test Result Flag Reference WBC 6.5 4.8-10.8 X10*3/uL RBC 3.97 L 4.20-5.50 X10*6/uL HGB 12.5 12.0-16.0 g/dl HCT 37.1 37.0-47.0 % MCV 93.5 80.0-98.0 fL MCH 31.5 27.0-33.0 pg MCHC 33.7 31.0-35.0 g/dl RDW 12.9 11.0-16.0 % PLT 181 160-400 X10*3/uL MPV 9.9 9.4-12.3 fL Neut Pct Auto 55.0 45-73 % ImGran Pct Auto 0.3 0.0-0.4 % Lymp Pct Auto 29.4 20-40 % [place] Pct Auto 12.2 H 2-11 % Eos Pct Auto 2.5 0-4 % Baso Pct Auto 0.6 0-2 % NRBC Pct Auto 0.0 0.0-0.2 /100WBC ANC Neut Abs # 3.6 2.0-8.3 x10*3/uL ImGran Abs Auto 0.02 0.00-0.03 X10*3/uL Lymph Abs Auto 1.9 1.2-4.9 X10*3/uL [place] Abs Auto 0.8 0.1-1.2 X10*3/uL Eos Abs Auto 0.2 0.0-0.4 X10*3/uL Baso Abs Auto 0.0 0.0-0.2 X10*3/uL NRBC Abs Auto 0.000 0.0-0.012 X10*3/uL Name: Leana Mills Age/Sex: 73/F : 1950 Unit#: [id number] Attend Dr: Raul Mejía MD Re04/15/24 Status: DIS THERESA Location: [place] [address] Disch: 04/15/24 SPEC : [id number] SG: 04/15/24 STATUS: COMP REQ : [id number] RECD: 04/15/[address]: Arelis Hansen MD COMP: 04/15/24 ENTERED: 04/15/24-[address] [facility] DR: Rachel Torres MD ORDERED: CMP, MG Test Result Flag Reference Sodium 140 135-145 mmol/L Potassium 4.0 3.3-5.1 mmol/L CL 110 H 96-108 mmol/L CO2 22 22-29 mmol/L Gap 12 12-20 BUN 18 H 9-16 mg/dL Creat 0.60 0.5-1.4 mg/dL Estimated CrCl 82.0 Provided height and weight: 162.56 cm, 69 kg. eGFR (calculated from the MDRD study equation) and eCrCl (calculated from the Cockcroft-Gault equation) are based on different parameters and may not yield comparable results. If eCrCl result is absurd, please check patient's height/weight. eGFR > 60 Chronic Kidney Disease: Estimated GFR < 60 mL/min/1.73m2 Severe Kidney Disease: Estimated GFR < 15 mL/min/1.73m2 Glucose, Random 102 60-115 mg/dL CA 9.3 8.4-10.2 mg/dL Magnesium 2.1 1.6-2.6 mg/dL Total Bili 0.5 0.0-1.0 mg/dL AST (GOT) 18 5-31 U/L ALT (GPT) 15 0-31 U/L Protein, Total 6.4 L 6.5-8.0 g/dL Alb 3.9 3.5-5.0 g/dL Alk Phos 61 39-117 U/L Name: Leana Mills Age/Sex: 73/F : 1950 Unit#: [id number] Attend Dr: Raul Mejía MD Re04/15/24 Status: DIS THERESA Location: [place] [address] Disch: 04/15/24 SPEC : [id number] SG: 04/15/24 STATUS: COMP REQ : [id number] RECD: 04/15/[address]: Brenda Cassidy MD COMP: 04/15/24 ENTERED: 04/15/[address]: Rachel Torres MD ORDERED: [facility] w [employer] QUERIES: Source: Urine, Clean Catch Test Result Flag Reference Ur Color Yellow Ur Appear Clear PH 6.5 5.0-9.0 Ur Glu Negative Negative mg/dL Urine Blood Negative Negative Spec [place] Ur <= 1.005 1.005-1.025 Urine Protein Negative Neg-Trace mg/dL Urine Ketones Negative Negative mg/dL Ur Nitrite Negative Negative Ur Suhail Esterase Small (1+) H Negative Ur RBC 0-2 0-2 /HPF Ur WBC 6-10 H 0-5 /HPF Ur Squam Epi 0-2 0-2 /HPF Ur Bact None Seen None Seen Ur Hyaline Bath Mixer 0-2 0-2 /LPF Coding Level of Care Code Tele Est Pt Level 4 (25786) Diagnoses Near syncope R55 Eri's disease E06.3 Primary osteoarthritis of left knee M17.12 Assessment & Plan Assessment & Plan (1) Near syncope: Code(s): R55 - Syncope and collapse Category: Medical (2) 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 Escobedo Plan - I discussed with the patient the possibility of experiencing hypoglycemic episodes due to dietary intake and a busy schedule, potentially leading to symptoms of faintness. Plan to conduct further diagnostic tests to ascertain cardiac health, including stress test, echocardiogram, and carotid ultrasound. Ensure CV system is stable for surgery. - Knee Pain: has appointment scheduled for preoperative evaluation today at 10 AM to ensure readiness and cardiovascular stability for knee surgery. - Preoperative evaluation for surgery: Coordinated pre-op tests and cardiology assessment today for planned surgical intervention on May 01. Discuss surgery expectations and potential impact due to hypoglycemic episodes. Patient was informed and verbally consented to the use of an ambient scribe for clinic note documentation during this visit.
== END 2024-04-21 10:17 | disposition home or self-care (01) ==
LOC: HO.HMCC 08:33
PROVIDERS: PCP Internal Medicine; Visit Provider Internal Medicine
DX: R55 Syncope and collapse (principal); E06.3 Autoimmune thyroiditis; M17.12 Unilateral primary osteoarthritis, left knee

== ENCOUNTER → 2024-04-21 08:33 | Outpatient (BNVA) | payer MEDICARE, SELFPAY | PROVIDERS: PCP Internal Medicine; Visit Provider Internal Medicine ==

== ENCOUNTER 2024-04-21 12:59 | Outpatient (AMB) | payer MEDICARE, SELFPAY ==
--- NOTE | 2024-04-21 13:25 | MHC.OFFVIS ---
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 She was initially found to be hypotensive which responded with IV fluids. monitor car operator did not show any arrhythmia. She was discharged with plan for outpatient echocardiogram. She was referred to Cardiology in follow-up. Today she reports that she has been doing well since her hospital discharge last week. She has not had any recurrent lightheadedness, presyncope and no syncope, falls. She states that the event occurred when she was sitting at the table with friends playing cards. She was drinking more wine than her usual. She said she began to feel unwell with mild nausea then does not remember anything until the ambulance was taking her away. She was witnessed to have mild confusion, no loss of consciousness and no seizure activity. She has never had an event like this in the past. She tells me she has had no cardiac history. She is normally very healthy and denies any issues with hypertension, hyperlipidemia or diabetes. She had been walking 3-5 miles daily up until July 2023 when her left knee was bothering her more. Since then she has been walking 1.3 miles daily with her . She tells me her root does include hills and she uses a smart watch to monitor her pulse rate. She says with the hill her heart rate can get up to 135. She does not get any chest discomfort at rest or during this activity. No shortness of breath, PND, orthopnea or edema. She does not get heart palpitations, dizziness. She says her sister has a heart murmur, no other family history of heart disease. She typically drinks a glass of wine daily but has not drank any since last week. She is a lifelong nonsmoker. 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 She has remained active since that time. [facility] Medical History COVID-19 Primary osteoarthritis of left knee Family history of breast cancer in sister Abnormal mammogram of both breasts Arthritis of left knee Osteopenia of multiple sites Hx of fracture of clavicle Rhinitis Eri's disease Laceration of forearm Surgical History Hx of lumpectomy H/O colonoscopy History of left oophorectomy Family History Father Substance use disorder Brother Substance use disorder Colon cancer Mother Mental health disorder Colon cancer Sister Breast cancer, Onset Age: 50 Social History Housing: House Are you a primary assisted living care manager to a significant other at home: No Do you presently have visiting nurse or other home services: No Alcohol intake: current Alcohol intake frequency: a few times a week Alcohol type: wine Patient Tobacco Use Status: Never used Tobacco e-Cigarette/Vaping Use: Never Used Second Hand Smoke Exposure: No Advance Directives Date on File: 09/24/23 service: No Current occupational status: retired Current occupation: Right hand dominate Cognitive needs: No Hearing needs: No Vision needs: Yes Female Reproductive History Menstrual Age of Menarche: 14 Review of Systems Const All systems reviewed & are unremarkable except as noted in HPI and below ENT Denies dizziness Card Denies chest pain, Denies chest pain at rest, Denies chest pain with activity, Denies rapid heart rate, Denies pedal edema, Denies edema, Denies leg edema, Denies lightheadedness, Denies palpitations, Denies dyspnea, Denies dyspnea on exertion and Denies orthopnea Resp Denies cough, Denies dyspnea and Denies dyspnea on exertion GI Denies hematochezia and Denies change in stool character Musc Details: left knee discomfort with ambulation - continues to walk daily for exercise Denies abnormal gait, Denies limited range of motion, Denies muscle cramps, Denies muscle weakness, Denies numbness, Denies radiating pain into limb, Denies stiffness and Denies tingling Neuro Denies abnormal gait, Denies dizziness, Denies numbness and Denies tingling Endo Denies palpitations Physical Exam Vital Signs: Last Vital Signs Pulse 73 04/21/24 13:26 BP 122/60 04/21/24 13:26 BMI result Body Mass Index 24.3 Const General: cooperative, healthy appearing, comfortable and no acute distress Orientation/consciousness: patient oriented x3 Neck Neck: Yes normal visual inspection Resp Effort & Inspection: normal respiratory effort Auscultation: clear to auscultation bilaterally, no crackles, no rales, no rhonchi and no wheezes Cardio Jugular venous distension: no JVD Rate: regular rate Rhythm: regular rhythm Heart sounds: S1 normal heart sound present, S2 normal heart sound present, no murmurs and no rubs Neuro General: patient oriented x3 Extrem General: Yes normal to inspection, No no pedal edema and No calf tenderness Psych Appearance: grossly normal Mental Status: mental status grossly normal Speech and movement: Normal speech and movement present Assessment & Plan Assessment & Plan (1) Near syncope: Code(s): R55 - Syncope and collapse Category: Medical Plan: Presyncopal event on 04/11/2024, while sitting playing cards, drinking wine. She describes feeling ill with nausea prior to memory lapse of the event. She was not witnessed to have full syncope, no falls. She was found to have hypotension by EMS and given IV fluids. Her blood pressure had normalized by the time she reached the ER. Her EKG showed normal sinus rhythm with no acute ST or T-wave abnormalities, normal AR, QRS and QTC intervals. Troponin levels were normal. Episode sounds like it could have been vasovagal. No history of vasovagal syncope. Will check an echocardiogram to assess for any structural heart disease. Will check a Holter monitor to assess for any significant bradycardia, pauses, arrhythmia. Plan to call her with results. Avoid alcohol use. Maintain good hydration. Cardiology follow-up 6 months, sooner if needed. (2) Preop cardiovascular exam: Code(s): Z01.810 - Encounter for preprocedural cardiovascular examination Category: Medical Plan: Preop for a left total knee replacement, 05/01/[address] Segal. No known cardiac history. Low cardiac risk profile. Able to tolerate activity greater than 4 Mets. Echocardiogram and Holter monitor being done as above. Requested that these tests be done urgently. If no significant abnormalities then she may be cleared with low cardiac risk. This note will be updated once test results are known. Call/consult Cardiology if needed. Plan Time spent on chart review, documentation, interview, assessment Orders: Orders ECG holter monitor 48 hour Today R55 - Syncope and collapse CA echo transthorac w con Today R55 - Syncope and collapse Coding Level of Care Code New Pt Level 4 (99036) Complex EM visit Add On G2211 Diagnoses Near syncope R55 Preop cardiovascular exam Z01.810 Time Spent (min) 34
[2024-04-21 13:26] VITALS: BP 122/60; PULSE 73; BMI 24.3
== END 2024-04-21 14:12 | disposition home or self-care (01) ==
PROVIDERS: PCP Internal Medicine; Visit Provider Nurse Practitioner Family
DX: R55 Syncope and collapse (principal); Z01.810 Encounter for preprocedural cardiovascular examination; M17.10 Unilateral primary osteoarthritis, unspecified knee
CPT/HCPCS: 93227; 99204; G2211

== ENCOUNTER → 2024-04-25 09:01 | Outpatient (REF) | payer MEDICARE, SELFPAY ==
--- NOTE | 2024-04-25 09:05 | CA_ITS ---
Transthoracic Echocardiogram Patient (Last, First, Middle): Leana Mills, Gender: Female Date of : 1950 Age: 73 Procedure Date: 04/25/2024 Procedure Type: Transthoracic Echocardiogram Location: OP Height: 162.56 cm Weight: 63.96 kg BSA: 1.69 m2 Heart Rate: 72 bpm BP: 122 / 60 mmHg Metal Drill Press Operator: SB Referring MD: Rhonda Guevara REGISTRAR ASSISTANTFelizC Symptoms: NEar syncope. Study Quality: Adequate ECG Rhythm: Sinus Conclusions: - The left ventricular systolic function is low normal. The visually estimated ejection fraction is between 50-55%. - No obvious valvular pathology seen on this study. Findings Left Ventricle Normal left ventricular cavity size. There is normal left ventricular wall thickness. The left ventricular systolic function is low normal. The visually estimated ejection fraction is between 50-55%. There is no evidence of regional wall motion abnormalities. Evidence suggests grade I (mild) diastolic dysfunction. Right Ventricle Normal right ventricular cavity size. There is mildly decreased right ventricular systolic function. Atria Both atria are normal in size. Aortic Valve There is a normal trileaflet aortic valve. There is no aortic valve stenosis. There is no aortic valve regurgitation. Mitral Valve The mitral valve appears normal. There is no mitral valve regurgitation. There is no mitral valve stenosis. Pulmonic Valve The pulmonic valve is likely normal. Tricuspid Valve Normal tricuspid valve structure. There is trace tricuspid valve regurgitation. There is no evidence of pulmonary hypertension. Great Vessels The asc aorta is normal in size. Venous The inferior vena cava is normal in size and collapses greater than 50% with inspiration. Pericardium/Pleural There is no evidence of pericardial effusion. Prior Study Comparison No prior study available for comparison. Recommendations, Care & Conclusions No obvious valvular pathology seen on this study. Measurements 2D Linear Measurements IVSd: 0.72 0.6-0.9/0.6-1.0 cm LVIDd: 5.13 3.9-5.3/4.2-5.9 cm LVIDd Index: 3.04 2.4-3.2/2.2-3.1 cm/m2 LVIDs: 3.73 2.0-3.6 cm LVPWd: 0.64 0.7-1.1 cm LA Diam: 3.30 2.7-3.8/3.0-4.0 cm LAIDs Index: 1.95 1.5-2.3 cm/m2 LV Mass: 144.28 67-162/88-224 g LV Mass Index: 85.37 43-95/49-115 g/m2 LVOT Diam: 2.10 3.0+(-)1.3 cm 2D Systolic Function EF 4C: 55.00 >55% EF 2C: 61.20 >55% EF BiP: 58.90 >55% Mitral Valve MV Pk E: 0.39 MV PK A: 0.75 MV Decel Time: 317.00 E/A: 0.50 E'Lateral: 5.33 E'Medial: 3.70 E/E' Med: 10.50 E/E' Lat: 7.30 PHT: 93.00 MVA PHT: 2.37 Decel [place]: 1.23 Aortic Valve AoV Pk David: 1.11 AoV Pk Grad: 5.00 TERRIE: 3.08 LVOT LVOT Pk David: 0.91 LVOT Mn David: 0.72 LVOT VTI: 0.19 LVOT Pk Grad: 3.00 LVOT Mn Grad: 2.00 LVOT Diam: 2.10 LVOT Area: 3.46 Diastolic Function MV Pk E: 0.39 MV Pk A: 0.75 E/A: 0.50 E'Medial: 3.70 E/E' Med: 10.50 E' Laterial: 5.33 E/E' Lat: 7.30 Right Ventricle TAPSE (mm): 11.80 TVS' David: 7.40 Tricuspid Valve TR Pk David: 2.11 TR Pk Grad: 18.00 RA Press: 3.00 RVSP: 21.00 Great Vessels Aorta Sinus of Valsalva: 3.00 2.0-3.5 cm Ao Asc: 3.30 2.1-3.4 cm Pulmonary Veins Pulm Vein S/D 2.30 Pulmonary Valve PV Pk David: 0.87 Peak PV Grad: 3.00 Updated in Other Vendor System with Status of Final Flavio Godwin MD electronically signed on 04/25/2024 4:29:30 PM with status of Final
== END ==
LOC: HO.CARD 09:01
PROVIDERS: PCP Internal Medicine; Visit Provider Nurse Practitioner Family
DX: R55 Syncope and collapse (principal)
CPT/HCPCS: 93306

== ENCOUNTER → 2024-04-25 09:05 | Outpatient (BNV) | payer MEDICARE, SELFPAY | PROVIDERS: PCP Internal Medicine; Visit Provider Internal Medicine | DX: I51.89 Other ill-defined heart diseases (principal) | CPT/HCPCS: 93306 ==

== ENCOUNTER 2024-04-26 07:54 | Outpatient (REF) | payer MEDICARE, SELFPAY | END 2024-04-26 07:55 | disposition home or self-care (01) | LOC: HO.LAB 07:54 | PROVIDERS: PCP Internal Medicine; Visit Provider Orthopaedic Surgery | DX: M25.562 Pain in left knee (principal); M17.12 Unilateral primary osteoarthritis, left knee | CPT/HCPCS: 99212 ==

== ENCOUNTER 2024-04-26 07:54 | Outpatient (AMB) | payer MEDICARE, SELFPAY ==
--- NOTE | 2024-04-26 08:03 | A.OFFVIS_ITS ---
Vital Signs 04/26/24 08:04 Height 5 ft 2 in Weight 140 lb BMI 25.6 Intake Visit Reasons: Left knee pain Intake Note: Leana is a 73 year old female who presents with complaints of progressively worsening left knee pain. She describes her pain as sharp and severe in nature, 03/09. Her pain has gotten worse over the last few years in spite of continued non operative treatments. She has had cortisone injections which seemed to aggravate her pain. She has also had viscosupplementation injections earlier this year which gave her minimal relief. The patient has done physical therapy exercises which aggravated her pain. The patient has difficulty walking even short distances because of her pain. She has tried Tylenol and meloxicam which gave her minimal relief. At this point the patient's left knee pain is interfering with her activities of daily living and her ability to sleep well through the night. Allergies No Known Allergies Allergy (Verified 04/26/24 08:04) Medication List - Last Reconciled 04/26/24 by Bradley Escobedo MD acetaminophen ER 650 mg PO Q8H PRN calcium carbonate-vitamin D3 600 mg-5 mcg (200 unit) 1 tab PO DAILY fluticasone propionate 50 mcg/actuation (Flonase Allergy Relief) 1 spray intranasal DAILY PRN walker Folding front wheeled walker [facility] Medical History COVID-19 Primary osteoarthritis of left knee Family history of breast cancer in sister Abnormal mammogram of both breasts Arthritis of left knee Osteopenia of multiple sites Hx of fracture of clavicle Rhinitis Eri's disease Laceration of forearm Surgical History Hx of lumpectomy H/O colonoscopy History of left oophorectomy Family History Father Substance use disorder Brother Substance use disorder Colon cancer Mother Mental health disorder Colon cancer Sister Breast cancer, Onset Age: 50 Social History Housing: House Are you a primary point of care technician to a significant other at home: No Do you presently have visiting nurse or other home services: No Alcohol intake: current Alcohol intake frequency: a few times a week Alcohol type: wine Patient Tobacco Use Status: Never used Tobacco e-Cigarette/Vaping Use: Never Used Second Hand Smoke Exposure: No Advance Directives Date on File: 09/24/23 service: No Current occupational status: retired Current occupation: Right hand dominate Cognitive needs: No Hearing needs: No Vision needs: Yes Female Reproductive History Menstrual Age of Menarche: 14 Physical Exam Vital Signs: BMI result Body Mass Index 25.6 Const Other: Well-nourished well-developed very friendly female awake alert and oriented x3 in no acute distress Extrem Other: Bilateral lower extremity examination shows good capillary refill, no skin lesions noted, normal sensation light touch Left knee examination shows a minimal effusion, palpable crepitus with range of motion, pain with range of motion, range of motion from -3 degrees to 115 degrees, no instability Results Reviewed Results Reviewed: X-rays of the patient's left knee show end-stage degenerative joint disease with grade 4 chcc-py-kuoc arthritis, subchondral sclerosis, osteophyte formation, no acute bony abnormalities Assessment & Plan Assessment & Plan (1) Left knee pain: Code(s): M25.562 - Pain in left knee (2) Primary osteoarthritis of left knee: Code(s): M17.12 - Unilateral primary osteoarthritis, left knee Category: Medical Plan Ms. Mills presents with progressively worsening left knee pain due to end- stage degenerative joint disease. I had a lengthy discussion with the patient regarding the treatment options. At this point she has failed continued non operative treatments. The risks and benefits of left total knee replacement surgery were discussed at length with the patient. The patient wishes to proceed with surgery. marketing services manager will be consulted following her surgery for home physical therapy and nursing. The patient will follow-up as instructed. Feel free to call me at any time should questions regarding her orthopedic management arise. I spent 22 minutes in reviewing the patient's records and imaging studies, seeing the patient and documenting in the medical record. Coding Level of Care Code Est Pt Level 3 (51681) Complex EM visit Add On G2211 Diagnoses Left knee pain M25.562 Primary osteoarthritis of left knee M17.12
[2024-04-26 08:04] VITALS: BMI 25.6
== END 2024-04-26 08:20 | disposition home or self-care (01) ==
PROVIDERS: PCP Internal Medicine; Visit Provider Orthopaedic Surgery
DX: M25.562 Pain in left knee (principal); M17.12 Unilateral primary osteoarthritis, left knee
CPT/HCPCS: 99213; G2211

== ENCOUNTER 2024-05-01 07:24 | Day surgery (SDC) | payer MEDICARE, SELFPAY ==
--- NOTE | 2024-04-03 08:05 | ECG_ITS ---
Test Reason : preop Blood Pressure : / mmHG Vent. Rate : 071 BPM Atrial Rate : 071 BPM P-R Int : 162 ms QRS Dur : 082 ms QT Int : 390 ms P-R-T Axes : 042 022 037 degrees QTc Int : 423 ms Normal sinus rhythm Normal ECG No previous ECGs available Referred By: Rachel Torres Electronically Signed By:ZAKI HAMMONDS MD
[2024-04-03 08:31] LABS: MANUAL DIFF FLAG NO
[2024-04-03 09:57] LABS: Basophils Absolute Auto 0.1 X10*3/uL (0.0-0.2); Basophils Percent Auto 1.1 % (0-2); Eosinophils Absolute Auto 0.2 X10*3/uL (0.0-0.4); Eosinophils Percent Auto 4.3 % (0-4); Hemoglobin 14.1 g/dl (12.0-16.0); Imm Gran Abs Auto 0.01 X10*3/uL (0.00-0.03); Imm Gran Pct Auto 0.2 % (0.0-0.4); Lymphocytes Absolute Auto 1.6 X10*3/uL (1.2-4.9); Lymphocytes Percent Auto 34.6 % (20-40); Mean Corpuscular HGB Conc 33.6 g/dl (31.0-35.0); Mean Corpuscular Hemoglobin 32.1 pg (27.0-33.0); Mean Corpuscular Volume 95.7 fL (80.0-98.0); Mean Platelet Volume 9.8 fL (9.4-12.3); Monocytes Absolute Auto 0.5 X10*3/uL (0.1-1.2); Monocytes Percent Auto 10.7 % (2-11); Neutrophils Absolute Auto 2.3 x10*3/uL (2.0-8.3); Neutrophils Percent Auto 49.1 % (45-73); Platelet Count 227 X10*3/uL (160-400); Red Blood Count 4.39 X10*6/uL (4.20-5.50); White Blood Count 4.6 X10*3/uL (4.8-10.8)
[2024-04-03 10:13] LABS: Estimated Average Glucose 97 mg/dL; Hemoglobin A1C 108.9439 umol/L; Total Hemoglobin (HGBA1C) 3502.0171 umol/L
[2024-04-03 11:04] LABS: Anion Gap 11 (12-20); Blood Urea Nitrogen 13 mg/dL (9-16); Calcium 9.7 mg/dL (8.4-10.2); Carbon Dioxide 26 mmol/L (22-29); Chloride 109 mmol/L (96-108); Estimated Glomerular Filt Rate > 60; Glucose Fasting 87 mg/dL (60-99); Potassium 4.1 mmol/L (3.3-5.1); Sodium 142 mmol/L (135-145)
--- NOTE | 2024-04-21 08:56 | HM_ITS ---
* Total monitoring time 2 days. * Underlying rhythm is sinus with an average rate of 76/Min. * Rare supraventricular ectopy. * Rare ventricular ectopy. * No significant pauses or high-grade AV blocks. * No patient markers or diary events. MTDD
[2024-04-21 10:32] VITALS: BP 148/71; PULSE 86; RESP 18; O2SAT 96; BMI 24.5
[2024-04-21 15:56] LABS: MRSA Nasal PCR NEGATIVE (Negative); SA Nasal PCR NEGATIVE (Negative)
[2024-05-01] VITALS (13 sets, daily range): BP systolic 87–118; BP diastolic 48–68; PULSE 65–82; RESP 16–18; TEMP 36.1–36.7; O2SAT 95–100; BMI 24.0
[2024-05-01] MEDS: Lactated Ringers 1,000 ML 100 ML IVCONT ×2 (06:32→13:09)
--- NOTE | 2024-05-01 07:04 | PC.NURSE ---
+ppp b/l left knee swollen pt sts always swollen denies pain
--- NOTE | 2024-05-01 07:30 | HO.ANESPROP2 ---
Documented by User: Diane Savage NP 04/26/24 08:43 HPI - Anesthesia Eval Consult details Narrative: 73yo F for Left Knee Replacement Total, 05/01/24 [place] [facility] [place] with syncope Hospital course the patient was admitted for monitoring of near syncopal episode. Noted to have low blood pressure at the seen. reported she had 2 drinks and was losing the card game. denies any palpitations or chest pain associated with the incident. No recurrence after receiving fluid bolus. Telemetry not showing any abnormalities. Trop negative. She was able to ambulate with no reported lightheadedness or dizziness. Postural pressures were stable. To be discharged home with advice to stay well hydrated and to get an Echo done as outpatient as she has scheduled surgery for early next month. She also advised to cut down alcohol use. This incident could be a result of vasovagal attack associated with alcohol intake and dehydration. Per outpatient cardiac w/u: Holter monitor completed but not able to get results prior to surgery date since the monitor was sent in mail to [place] for reading. Holter was done due to her episode of presyncope. Based on the description of her episode it sounded most like vasovagal presyncope. Her EKG did not show any signs of electrical issues. It showed SR, normal TX, QRS and QTc interval. She was [place] [facility] and did not have any recorded arrythmia. The likeliness of finding concerning bradycardia or arrythmia on holter is thought to be low. - He echocardiogram shows EF 50-55%, normal valves, no regional WMA, grade 1 diastolic dysfunction, normal atrial sizes. Case discussed with Dr Godwin. - Pt has no anginal symptoms, has reported good activity tolerance, no history of syncope and no recurrent issues of presyncope. She can proceed with total knee replacement surgery with low cardiac risk. call/ consult cardiology if needed. No recent illness No CP/SOB with water aerobics / walking / seated strength exercises PMFSH Active Problems Active Problems: All Active Problems Dehydration (Acute) Hypotension (Acute) Near syncope (Acute) Primary osteoarthritis of left knee (Acute) Osteopenia of multiple sites (Acute) Eri's disease (Acute) Past Medical History Medical History COVID-19 Primary osteoarthritis of left knee Family history of breast cancer in sister Abnormal mammogram of both breasts Arthritis of left knee Osteopenia of multiple sites Hx of fracture of clavicle Rhinitis Eri's disease Laceration of forearm Family History Family History Father Substance use disorder Brother Substance use disorder Colon cancer Mother Mental health disorder Colon cancer Sister Breast cancer, Onset Age: 50 Family history of problems with anesthesia: No Surgical History Surgical History Hx of lumpectomy H/O colonoscopy History of left oophorectomy History of Problems with Anesthesia: No Social History Social History Housing: House Are you a primary housekeeper caregiver to a significant other at home: No Do you presently have visiting nurse or other home services: No Alcohol intake: current Alcohol intake frequency: a few times a week Alcohol type: wine Patient Tobacco Use Status: Never used Tobacco e-Cigarette/Vaping Use: Never Used Second Hand Smoke Exposure: No Advance Directives Date on File: 09/24/23 service: No Current occupational status: retired Current occupation: Right hand dominate Cognitive needs: No Hearing needs: No Vision needs: Yes Meds Allergies Allergy/AdvReac Type Severity Reaction Status Date / Time No Known Allergies Allergy Verified 04/26/24 08:04 Home Medications ?Medication ?Instructions ?Recorded ?Confirmed ?Last Taken ?Type fluticasone propionate 50 1 spray intranasal DAILY PRN 09/16/21 04/26/24 04/30/24 History mcg/actuation nasal Allergic Symptoms spray,suspension (Flonase Allergy Relief) calcium 600 mg (as 1 tab PO DAILY 04/15/24 04/26/24 04/30/24 History carbonate)-vitamin D3 5 mcg (200 unit) tablet acetaminophen 650 mg 650 mg PO Q8H PRN Pain 04/21/24 04/26/24 04/30/24 History tablet,extended release Exam Height,Weight and Vital Signs: Height 5 ft 4 in Weight 64.864 kg Last Vital Signs Pulse 86 04/21/24 10:32 Resp 18 04/21/24 10:32 BP 148/71 H 04/21/24 10:32 Pulse Ox 96 04/21/24 10:32 O2 Del Method Room Air 04/21/24 10:32 Pertinent Lab Results Pertinent Lab Results: Laboratory Tests 04/03/24 08:29 WBC 4.6 L RBC 4.39 Hgb 14.1 Hct 42.0 MCV 95.7 MCH 32.1 MCHC 33.6 RDW 13.0 Plt Count 227 MPV 9.8 Immature Gran % (Auto) 0.2 Neut % (Auto) 49.1 Lymph % (Auto) 34.6 Vernon % (Auto) 10.7 Eos % (Auto) 4.3 H Baso % (Auto) 1.1 Lymph # (Auto) 1.6 Vernon # (Auto) 0.5 Eos # (Auto) 0.2 Baso # (Auto) 0.1 Abs Immat Gran (auto) 0.01 Absolute Neuts (auto) 2.3 Absolute Nucleated RBC 0.000 Nucleated RBC % (auto) 0.0 Sodium 142 Potassium 4.1 Chloride 109 H Carbon Dioxide 26 Anion Gap 11 L BUN 13 Creatinine 0.66 Estim Creat Clear Calc TNP Estimated GFR > 60 Fasting Glucose 87 Estimat Average Glucose 97 Hemoglobin A1c % 5.0 Calcium 9.7 Narrative Narrative: EKG 03/2024 Vent. Rate : 065 BPM Atrial Rate : 065 BPM P-R Int : 154 ms QRS Dur : 078 ms QT Int : 422 ms P-R-T Axes : 003 007 012 degrees QTc Int : 438 ms Normal sinus rhythm Minimal voltage criteria for LVH, may be normal variant ( R in aVL ) Abnormal ECG When compared with ECG of 03-APR-2024 08:04, No significant change was found ECHO 03/2024 Conclusions: - The left ventricular systolic function is low normal. The visually estimated ejection fraction is between 50-55%. - No obvious valvular pathology seen on this study. Airway Mallampati Class: II TM Dist: >3cm Neck ROM: Full Loose/Missing/Broken Teeth: Yes (extracted molars, crown) Heart: RRR Lungs: CTAB Assessment and Plan Assessment Anesthesia Assessment: Anesthesia Plan Discussed and PAT Visit Final Anesthetic Review Family History of Problems with Anesthesia: No History of Problems with Anesthesia: No Documented by User: Robina Perkins DO 05/01/24 08:33 COUNT INCLUDES THE [facility] Past Medical History Medical History COVID-19 Primary osteoarthritis of left knee Family history of breast cancer in sister Abnormal mammogram of both breasts Arthritis of left knee Osteopenia of multiple sites Hx of fracture of clavicle Rhinitis Eri's disease Laceration of forearm Family History Family History Father Substance use disorder Brother Substance use disorder Colon cancer Mother Mental health disorder Colon cancer Sister Breast cancer, Onset Age: 50 Family history of problems with anesthesia: No Surgical History Surgical History Hx of lumpectomy H/O colonoscopy History of left oophorectomy History of Problems with Anesthesia: Yes (PONV) Social History Social History Housing: House Are you a primary housekeeper caregiver to a significant other at home: No Do you presently have visiting nurse or other home services: No Alcohol intake: current Alcohol intake frequency: a few times a week Alcohol type: wine Patient Tobacco Use Status: Never used Tobacco e-Cigarette/Vaping Use: Never Used Second Hand Smoke Exposure: No Advance Directives Date on File: 09/24/23 service: No Current occupational status: retired Current occupation: Right hand dominate Cognitive needs: No Hearing needs: No Vision needs: Yes Meds Allergies Allergy/AdvReac Type Severity Reaction Status Date / Time No Known Allergies Allergy Verified 04/26/24 08:04 Home Medications ?Medication ?Instructions ?Recorded ?Confirmed ?Last Taken ?Type fluticasone propionate 50 1 spray intranasal DAILY PRN 09/16/21 04/26/24 04/30/24 History mcg/actuation nasal Allergic Symptoms spray,suspension (Flonase Allergy Relief) calcium 600 mg (as 1 tab PO DAILY 04/15/24 04/26/24 04/30/24 History carbonate)-vitamin D3 5 mcg (200 unit) tablet acetaminophen 650 mg 650 mg PO Q8H PRN Pain 04/21/24 04/26/24 04/30/24 History tablet,extended release Exam Exam Date and Time: 05/01/24 0715 Height,Weight and Vital Signs: Height 5 ft 4 in Weight 64.864 kg Last Vital Signs Pulse 86 04/21/24 10:32 Resp 18 04/21/24 10:32 BP 148/71 H 04/21/24 10:32 Pulse Ox 96 04/21/24 10:32 O2 Del Method Room Air 04/21/24 10:32 Vital Signs Pulse Rate 86 04/21/24 10:32 Respiratory Rate 18 04/21/24 10:32 Blood Pressure 148/71 H 04/21/24 10:32 Pulse Oximetry 96 04/21/24 10:32 Oxygen Delivery Method Room Air 04/21/24 10:32 Pulse Rate 86 04/21/24 10:32 Respiratory Rate 18 04/21/24 10:32 Blood Pressure 148/71 H 04/21/24 10:32 Pulse Oximetry 96 04/21/24 10:32 Oxygen Delivery Method Room Air 04/21/24 10:32 Airway Mallampati Class: II TM Dist: >3cm Neck ROM: Full Loose/Missing/Broken Teeth: Yes (extracted molars, crown in place) Assessment and Plan Assessment Anesthesia Assessment: Anesthesia Plan Discussed and Chart Reviewed Final Anesthetic Review Family History of Problems with Anesthesia: No History of Problems with Anesthesia: Yes (PONV) NPO: Yes ASA Class: II Final Preanesthetic Review: No Changes in Pt Med Stat, Meds/Allgs Chart Reviewed, Consent Obtained/Reviewed and Anes Risks/Benef Reviewed Patient Risk: Low Procedure Risk: Intermediate Anesthetic Plan Anesthetic Plan: Spinal, Regional Block (left adductor canal and ipack blocks) and Agree w/ Assess. and Plan Disposition: Standard PACU
--- NOTE | 2024-05-01 10:27 | PM.OP ---
Brief Operative Note Date of Service: 05/01/24 Pre-op diagnosis: Left knee degenerative joint disease Post-op diagnosis: same Procedure: Left total knee arthroplasty Implants: Enma Triathlon cemented posterior stabilized total knee arthroplasty with a femoral component size 3 left, tibial component size 3, polyethylene liner size 3 with 9 mm of thickness, an asymmetric patellar component size 32 with 10 mm of thickness Surgeon: Bradley Escobedo MD Anesthesia: regional and spinal Was an Glassware Engraver used for this Procedure?: No Glassware Engraver: Vernell Kirk Estimated blood loss (mL): 200 Pathology: other (Bony fragments from the left femur, tibia and patella) Condition: stable Disposition: PACU
--- NOTE | 2024-05-01 10:29 | P.OP_ITS ---
Operative Note Operative Note Date of Service: 05/01/24 Narrative: After the patient was identified as Leana Mills and her left knee was initialed by myself the patient was brought to the holding area where a left leg nerve block was performed by the anesthesiologist in routine fashion. The patient was then brought to the operating room where conscious sedation and spinal anesthesia were performed by the anesthesiologist in routine fashion. The patient was given 2 g of IV Ancef preoperatively for infection prophylaxis. The patient's left lower extremity was prepped and draped in sterile fashion. A formal time-out was completed. The patient's left knee was placed onto a small bump to produce 30? of knee flexion during exposure. A #10 scalpel blade was used to make a midline incision extending 1 handbreadth proximal and distal to the patella. A second #10 scalpel blade was used to dissect the subcutaneous tissues down to the extensor mechanism. The subcutaneous flaps were maintained as thick as possible. A medial parapatellar arthrotomy was then performed using a #10 scalpel blade. The arthrotomy was begun just medial to the patellar tendon. The arthrotomy was continued 1 cm medial to the patella and then 5 mm into the medial aspect of the quadriceps tendon. The infrapatellar fat pad was partially excised to help with exposure. The soft tissue retinaculum was raised one-half of the way around the medial aspect of the proximal tibia. The patella was everted and the knee was flexed to 90?. There was no injury to the patellar tendon or its insertion onto the tibial tubercle. A drill bit was introduced into the distal aspect of the femur with a starting point 1 cm anterior to the origin of the posterior cruciate ligament. The intramedullary alignment sharon was put into place. The distal alignment guide was set for a 5 degree valgus cut. The distal cutting block was put into place and was held with 4 pins. The intramedullary alignment sharon was removed. Soft tissues were retracted in the distal femoral cut was made using a sagittal saw. The distal aspect of the femur measured to be a size 3 left component. Two drill holes were placed into the distal aspect of the femur marking 3? of external rotation. The distal cutting block was impacted into place and was held with 2 pins. Soft tissues were retracted and the 4 distal femoral cuts were made using a sagittal saw. Final notching and drilling of the distal aspect of the femur were performed in routine fashion. The trial femoral component was impacted into place. The knee was taken through a full range of motion. The patella tracked well. The patella was everted and the knee was flexed to 90?. The trial component was removed and our attention was directed to the proximal tibia. The medial and lateral menisci were removed using a #10 scalpel blade. A small rim of the medial meniscus was left intact to help prevent injury to the medial collateral ligament. A drill bit was then introduced into the proximal tibia with a starting point midway from medial to lateral and one-third of the way posteriorly. The intramedullary alignment sharon was put into place. The proximal tibial cutting guide was placed over the alignment sharon in line with the 2nd toe. The guide was held in place using 3 pins. The intramedullary alignment sharon was removed. Soft tissues were retracted and the proximal tibial cut was made using a sagittal saw. The proximal tibia measured to be a size 3 component. The tibial tray was put into place with a 9 mm liner. The femoral component was impacted into place. The knee was taken through a full range of motion. There was full flexion and full extension. There was no instability with varus or valgus stress testing with the knee in flexion or extension. The patella tracked well with no medially directed force. The rotation of the tibial tray was marked using electrocautery with the knee in extension. The patella was everted and the knee was flexed to 90?. All trial components were removed. The tibial tray was placed onto the proximal tibia in line with the electrocautery nathaly. The tray was held in place using 3 pins. Final broaching of the proximal tibia was performed in routine fashion. The trial liner and trial femoral component were put into place. The knee was brought into extension and our attention was directed to the patella. The patella measured 25 mm in thickness. The patellar resection guide was set for a 10 mm resection. Soft tissues were retracted and the patella cut was made using a sagittal saw. The remaining patella measured 15 mm in thickness. The undersurface of the patella was measur ed to be a size 32 asymmetric component. Three drill holes were placed into the undersurface of the patella in routine fashion. The trial component was put into place. The knee was taken through a full range of motion. The patella tracked well. The patella was everted and the knee was flexed to 90?. All trial components were removed. The knee was once again brought into extension and placed onto a small bump. The knee joint was irrigated with copious amounts of normal saline solution via pulse lavage while the cement was mixed. The patella was everted and the knee was flexed to 90?. A small amount of cement was placed along the posterior aspects of the tibial and femoral components. Cement was then pressurized into the proximal tibia. The tibial component was impacted into place. Any excess cement was removed. The polyethylene liner was then impacted into place. Cement was then pressurized into the distal aspect of the femur. A small amount of cement was placed into the intramedullary canal to help reduce bleeding. The femoral component was impacted into place. Any excess cement was removed. The knee was then brought into extension. Cement was pressurized into the undersurface of the patella. The patellar component was put into place and was held with a patella clamp. Any excess cement was removed. Once the cement had hardened the patellar clamp was removed. The knee was taken through a full range of motion. There was full flexion and extension. There was no instability with varus or valgus stress testing with the knee in flexion or extension. The patella tracked well with no medially directed force. The knee joint was irrigated with copious amounts of normal saline solution via pulse lavage. Any significant bleeding vessels were coagulated. The patient's left knee was placed onto a small bump. The arthrotomy was closed with #2 Ethibond [id number] interrupted suture as well as #1 Vicryl [id number] interrupted suture. The wound was once again irrigated. The subcutaneous tissues were closed with 0 Vicryl and 2-0 Vicryl interrupted sutures. The skin was closed with skin madan. Dry sterile dressing and Skip bandages were placed over the patient's left knee. The patient was awake and alert. The patient was transferred to the recovery room in stable condition.
--- NOTE | 2024-05-01 11:00 | PHA.MEDREC ---
Pharmacy Consult ? Medication Reconciliation Pharmacy has reviewed the medication reconciliation done by RN.
[2024-05-01] MEDS: ceFAZolin Sodium/Dextrose,Iso 2 GM/50 ML PIGGYBACK IV ×2 (13:18→21:58)
[2024-05-01] MEDS: oxyCODONE HCl ER 10 MG TAB.ER.12H PO ×2 (13:19→20:25)
[2024-05-01] MEDS: Aspirin 325 MG TABLET PO ×2 (13:19→20:25)
[2024-05-01] MEDS: methocarbamoL 500 MG TABLET PO ×2 (13:19→20:25)
[2024-05-01] MEDS: Celecoxib 200 MG CAPSULE PO ×2 (13:19→20:25)
[2024-05-01] MEDS: Gabapentin 100 MG CAPSULE PO (20:25)
[2024-05-01] MEDS: HYDROmorphone HCl 0.5 MG/0.5 ML SYRINGE 0.25 MG IVPUSH (21:27)
[2024-05-02] VITALS (13 sets, daily range): BP systolic 66–140; BP diastolic 32–63; PULSE 69–94; RESP 16–18; TEMP 36.5–37; O2SAT 94–97
[2024-05-02] MEDS: Lactated Ringers 1,000 ML 100 ML IVCONT ×3 (02:06→21:05)
[2024-05-02] MEDS: oxyCODONE HCl Immed Release 5 MG TABLET 10 MG PO ×2 (05:37→11:07)
[2024-05-02 06:27] LABS: MANUAL DIFF FLAG NO
[2024-05-02 06:39] LABS: Basophils Percent Auto 0.3 % (0-2); Eosinophils Percent Auto 0.3 % (0-4); Hematocrit 31.2 % (37.0-47.0); Hemoglobin 10.4 g/dl (12.0-16.0); Imm Gran Abs Auto 0.03 X10*3/uL (0.00-0.03); Imm Gran Pct Auto 0.3 % (0.0-0.4); Lymphocytes Absolute Auto 2.4 X10*3/uL (1.2-4.9); Lymphocytes Percent Auto 24.2 % (20-40); Mean Corpuscular HGB Conc 33.3 g/dl (31.0-35.0); Mean Corpuscular Hemoglobin 31.8 pg (27.0-33.0); Mean Corpuscular Volume 95.4 fL (80.0-98.0); Mean Platelet Volume 9.9 fL (9.4-12.3); Monocytes Absolute Auto 1.1 X10*3/uL (0.1-1.2); Monocytes Percent Auto 10.7 % (2-11); Neutrophils Absolute Auto 6.5 x10*3/uL (2.0-8.3); Neutrophils Percent Auto 64.2 % (45-73); Platelet Count 180 X10*3/uL (160-400); Red Blood Count 3.27 X10*6/uL (4.20-5.50); Red Cell Distribution Width 13.2 % (11.0-16.0); White Blood Count 10.1 X10*3/uL (4.8-10.8)
[2024-05-02 06:47] LABS: Anion Gap 10 (12-20); Blood Urea Nitrogen 16 mg/dL (9-16); Calcium 8.6 mg/dL (8.4-10.2); Carbon Dioxide 26 mmol/L (22-29); Chloride 108 mmol/L (96-108); Creatinine Clr Calc Pharmacy 66.5; Estimated Glomerular Filt Rate > 60; Glucose Fasting 99 mg/dL (60-99); Potassium 4.1 mmol/L (3.3-5.1); Sodium 140 mmol/L (135-145)
[2024-05-02] MEDS: Celecoxib 200 MG CAPSULE PO ×2 (08:32→20:11)
[2024-05-02] MEDS: Aspirin 325 MG TABLET PO ×2 (08:32→20:11)
[2024-05-02] MEDS: Calcium + Vitamin D 250 MG TABLET 500 MG PO (08:32)
[2024-05-02] MEDS: methocarbamoL 500 MG TABLET PO (08:33)
[2024-05-02] MEDS: oxyCODONE HCl ER 10 MG TAB.ER.12H PO ×2 (08:33→20:12)
--- NOTE | 2024-05-02 09:22 | MHC.CM.PN ---
IMM 05/02/24 Pre op patient did not use a device. She states that she did have a limp and pain. She lives with her spouse. She is independent with all functional mobility(pre-op). Referrals have been sent for VNA services. [facility] is the on agency offering to accept the patient. DP home with [facility]. Patients spouse will provide transportation home.
--- NOTE | 2024-05-02 09:28 | PC.NURSE ---
Addendum entered by Krystina Guevara RN 05/02/24 11:00: Patient overall not feeling well, unspecific symptoms, VSS stable, BP 109/54. Patient up out of chair to bathroom. Patient sat at edge of chair for few minutes, prior to getting up out of chair. Patient able to ambulate to bathroom, denies dizziness however did become nauseous. Resolved with sitting on toilet. Symptoms once again returned when ambulating back to bed. BP once back in bed 95/51, pulse 69. Awaiting hospitalist consult. Patient to rest in bed. All needs met. Original Note: 0830- This RN walked in to patient room while working with PT. Per PT patient became dizzy while ambulating. BP once back in chair 66/32. Patient states dizziness is improving now that she is sitting. Per patient was having increased pain while ambulating otherwise was feeling okay until dizziness started. Repeat BP 5 minutes after sitting down 92/47, then 5 more minutes later 95/53. Patient no longer dizzy, pain improving. Jens VALDIVIA made aware of BPs, no new orders. Patient reminded to call prior to getting up out of chair. Chair alarm on, and call jaffe within reach. Patient verbalized understanding, all needs met.
--- NOTE | 2024-05-02 13:57 | P.PNOP_ITS ---
Subjective Subjective Date of Service: 05/02/24 Interval history: POD 1 s/p LT TKA no overnight events she has been attempting to work with PT today but has nausea, dizziness and HypoTsn denies sob or palpitations Physical Exam Vital Signs: Vital Signs: Last Vital Signs Temp 98.3 F 05/02/24 07:55 Pulse 69 05/02/24 10:30 Resp 16 05/02/24 13:54 BP 123/63 05/02/24 13:54 Pulse Ox 95 05/02/24 13:54 O2 Del Method Room Air 05/02/24 13:54 O2 Flow Rate 6 05/01/24 10:15 BMI result Body Mass Index 24.0 Const: General: cooperative and no acute distress Orientation/consciousness: patient oriented x3 Resp: Effort & Inspection: normal respiratory effort and able to speak in complete sentences Cardio: Peripheral pulses: Peripheral pulses 2+ throughout Neuro: General: patient oriented x3 Extrem: Other: bandage clean dry and intact. Sam intact. No erythema or joint effusion. Calf supple nontender. Neurovascularly intact. Procedures Date of Service Date of Service: 05/02/24 Progress Note: A&P Assessment and plan (1) Status post total left knee replacement: Status: Acute Assessment and Plan: * Continue pain mgmnt * Begin Aspirin for dvt ppx * begin PT for LT TKA * Dispo planning-Pending PT eval, pain mgmnt Need for continued inpatient stay: PT , hypotension Time Spent With Patient Time: Total time managing care of this patient today ____ minutes. Quality Stroke Does the patient have a stroke diagnosis?: No VTE Prior VTE?: No VTE Risk Level:: Surgical - very high VTE Device Contraindication: N/A - Device Ordered VTE Drug Contraindication: N/A - Med Ordered
--- NOTE | 2024-05-02 14:23 | P.DS_ITS ---
DS: Providers Provider Date of Service: 05/03/24 Primary care physician: Rachel Torres MD Consults: 05/02/24 09:56 Consult to Hospitalist Routine Comment: Consulting Provider: [facility] Reason For Exam: hypotension DS: Diagnosis Discharge Diagnosis (1) Status post total left knee replacement: Status: Acute DS: Summary Hospital Course Hospital Course: The patient underwent a successful left total knee arthroplasty, they were t ransferred to PACU and then to the floor to recover. During their stay, their vitals were stable, afebrile at 98.7. Labs were unremarkable, H/H 9.0/26.9. POD 1 they were started on Aspirin for DVT ppx, they also received Physical Therapy services twice a day. POD1 patient had three episodes of hypotension. Narcotics adjusted with improvement. Prior to discharge, their dressing was clean dry and intact, and the plan was to be discharged home with VNA services. Time Attestation Discharge Coordination Time (in mins): 30 Quality: Safe Use of Opioids Does Pt have an Active Cancer Diagnosis on the Problem List?: No Quality: Stroke Does the patient have a stroke diagnosis?: No Physical Exam Vital Signs: Vital Signs: Last Vital Signs Temp 98.3 F 05/02/24 07:55 Pulse 69 05/02/24 10:30 Resp 16 05/02/24 13:54 BP 123/63 05/02/24 13:54 Pulse Ox 95 05/02/24 13:54 O2 Del Method Room Air 05/02/24 13:54 O2 Flow Rate 6 05/01/24 10:15 BMI result Body Mass Index 24.0 Const: General: cooperative, healthy appearing and no acute distress Resp: Effort & Inspection: normal respiratory effort and able to speak in complete sentences Cardio: Rate: regular rate Peripheral pulses: Peripheral pulses 2+ throughout GI: Palpation (GI): Soft to palpation Skin: Lesions: no lesions Rashes: no rashes Extrem: Other: left knee dressing is c/d/i. Able to dorsi/plantar flex. Calf is supple and nontender. Sensation intact. Pedal pulse intact. DS: Data Data Completed and Pending Pending studies at discharge: Pending at discharge 05/01/24 08:52 Surgical [PTH] Routine Labs on day of discharge: Laboratory Results - last 24 hr 05/02/24 05:35 WBC 10.1 RBC 3.27 L Hgb 10.4 L Hct 31.2 L MCV 95.4 MCH 31.8 MCHC 33.3 RDW 13.2 Plt Count 180 MPV 9.9 Immature Gran % (Auto) 0.3 Neut % (Auto) 64.2 Lymph % (Auto) 24.2 [place] % (Auto) 10.7 Eos % (Auto) 0.3 Baso % (Auto) 0.3 Lymph # (Auto) 2.4 [place] # (Auto) 1.1 Eos # (Auto) 0.0 Baso # (Auto) 0.0 Abs Immat Gran (auto) 0.03 Absolute Neuts (auto) 6.5 Absolute Nucleated RBC 0.000 Nucleated RBC % (auto) 0.0 Sodium 140 Potassium 4.1 Chloride 108 Carbon Dioxide 26 Anion Gap 10 L BUN 16 Creatinine 0.67 Estim Creat Clear Calc 66.5 Estimated GFR > 60 Fasting Glucose 99 Calcium 8.6 D Discharge Plan Discharge Patient Disposition: Home Health Service Referrals: Vernell Kirk PA-C [Physician [facility]sembler] - 05/18/24 12:30 pm Discharge Medications: New methocarbamol 500 mg Tablet 500 mg PO TID 7 Days Qty: 21 0RF acetaminophen 325 mg Tablet 650 mg PO Q6H PRN (Reason: Pain, Mild (Pain Scale 1-3), fever or headache) 30 Days Qty: 240 0RF aspirin 325 mg Tablet 325 mg PO BID 42 Days Qty: 84 0RF celecoxib 200 mg Capsule 200 mg PO BID 30 Days Qty: 60 0RF gabapentin 100 mg Capsule 100 mg PO BEDTIME 7 Days Qty: 7 0RF oxycodone 10 mg tablet 10 mg PO Q4H PRN (Reason: Pain, Moderate(Pain Scale 4-6)) 7 Days Qty: 42 0RF Rx Instructions: Partial Fill upon patient request. Continued (VARSHA) jaymie Guzmánc See Rx Instructions .ROUTE .MEDSUPPLY Qty: 1 0RF Rx Instructions: Folding front wheeled walker calcium carbonate-vitamin D3 600 mg-5 mcg (200 unit) Tablet 1 tab PO DAILY fluticasone propionate [Flonase Allergy Relief] 50 mcg/actuation spray,suspension 1 spray intranasal DAILY PRN (Reason: Allergic Symptoms) Rx Instructions: administer into each nostril Discontinued acetaminophen 650 mg Tablet Extended Release 650 mg PO Q8H PRN (Reason: Pain) Discharge Orders: Discharge Order (Routine); Ordered 05/03/24 Ordered By: Vernell Kirk Diet: Advance to usual diet Activity on Discharge: Use cane or walker Activity Restrictions/Additional Instructions: Physical Therapy for ROM 0-120, quad strength, gait training. Use walker for ambulation Limit stair climbing, No shower, No tub bath, No driving Continue anticoagulant x 6 weeks Keep Aquacel dressing clean, dry and intact. Follow up with orthopedics in 2 weeks Print Language: German
--- NOTE | 2024-05-02 14:25 | P.F2F_ITS ---
Service Date Service Date: 05/02/24 Encounter Date of encounter: 05/03/24 Reasons for Services Signs and symptoms assessed: s/p LTKA Pt. is considered homebound due to recent surgery. Unable to drive, poor balance, poor gait mechanics. Reason for physical therapy: home safety and mobility, therapeutic exercises, restore joint function, gait/transfer training and ADL training Homebound: Leaving the home is medically contraindicated at this time without the asist of a device and/or another person due th the listed conditions above and below. Reason homebound: unsteady gait / fall risk, leg weakness, pain with ambulation, poor balance / fall risk and unable to drive Certification: Based on the above findings, I certify that this patient is confined to the home and needs intermittent shelter care, physical therapy and/or speech therapy, or continues to need occupational therapy. The patient is under my care, and I have initiated the establishment of the plan of care. The patient will be followed by a physician who will periodically review the plan of care. Time Spent With Patient Time: Total time managing care of this patient today ____ minutes.
--- NOTE | 2024-05-02 14:38 | P.CONHOSP_ITS ---
History of Present Illness Data of Consult Service Date: 05/02/24 Primary Care Provider: Rachel Torres MD HPI Reason for consult: Management for hypotension 73-year-old female patient with no significant past medical history underwent left total knee arthroplasty on 05/01 patient noted to have symptoms of nausea, lightheadedness and hypotension mostly with standing and participation with physical therapy, patient complaining of pain left knee, she noted to have significant drop in blood pressure with physical therapy, this a.m. patient felt nauseous, clammy and lightheaded, therefore unable to tolerate functional activity, patient denies associated chest pain, no prior history of similar symptoms, not on home medications no history of coronary artery disease, denies hematemesis, no melena, patient placed on multiple narcotics analgesics and muscle relaxers for acute pain control. Patient offers no symptoms of infection no urinary urgency, no frequency, no cough, no headache, no skin rash, history of drinking wine 1-2 glasses at night but no intake in last 3 weeks. Review of Systems 2 Review of Systems: General no headache ,no fever chills. CVS no chest pain, no palpitation. Respiratory no cough no sob Gastrointestinal nausea no urgency, no frequency Skin no rash All other system reviewed and negative [facility] Medical History COVID-19 Primary osteoarthritis of left knee Family history of breast cancer in sister Abnormal mammogram of both breasts Arthritis of left knee Osteopenia of multiple sites Hx of fracture of clavicle Rhinitis Eri's disease Laceration of forearm Family History Father Substance use disorder Brother Substance use disorder Colon cancer Mother Mental health disorder Colon cancer Sister Breast cancer, Onset Age: 50 Surgical History Hx of lumpectomy H/O colonoscopy History of left oophorectomy Social History Household Members: Spouse Housing: House Are you a primary acute care nurse to a significant other at home: No Do you presently have visiting nurse or other home services: No Alcohol intake: current Alcohol intake frequency: 0-2 drinks per day Alcohol type: wine Patient Tobacco Use Status: Never used Tobacco e-Cigarette/Vaping Use: Never Used Second Hand Smoke Exposure: No Use of substances other than those prescribed or required for medical reasons: No Currently Displaying Signs/Symptoms of Drug Intoxication Withdrawal: No Have you been hit, kicked, punched, or otherwise hurt by someone within the past year? If so, by whom?: No Do you feel safe in your current relationship?: Yes Is there a partner from a previous relationship who is making you feel unsafe now?: No Are you made to feel afraid or neglected: No Are you DNR?: No Advance Directives: Yes Advance Directives Information Provided: No Advance Directives on File: Yes Advance Directives Date on File: 09/24/23 Do you have a plan to hurt others: No Plan Recently lost weight without trying: No Eating poorly because of decreased appetite: No Nutrition Risks: No Nutritional Risk Patient : No : No Poor oral hygiene: No service: No Current occupational status: retired Current occupation: Right hand dominate Cognitive needs: No Hearing needs: No Vision needs: Yes Meds Allergies Allergy/AdvReac Type Severity Reaction Status Date / Time No Known Allergies Allergy Verified 04/26/24 08:04 Active Medications: Current Medications Acetaminophen (Acetaminophen 325 Mg Tablet) 650 mg PO Q6H PRN PRN Reason: Pain, Mild (Pain Scale 1-3), fever or headache Aspirin (Aspirin 325 Mg Tablet) 325 mg PO BID [facility] Last Admin: 05/02/24 08:32 Dose: 325 mg Calcium Carbonate/Cholecalciferol (Calcium + Vitamin D 250 Mg Tablet) 500 mg PO DAILY [facility] Last Admin: 05/02/24 08:32 Dose: 500 mg Celecoxib (Celecoxib 200 Mg Capsule) 200 mg PO BID [facility] Last Admin: 05/02/24 08:32 Dose: 200 mg Fluticasone Propionate (Fluticasone Propionate Nasal 16 Gm [place]) 1 spray NOSTRIL-B DAILY PRN PRN Reason: Allergic Symptoms Gabapentin (Gabapentin 100 Mg Capsule) 100 mg PO BEDTIME [facility] Last Admin: 05/01/24 20:25 Dose: 100 mg Hydromorphone HCl (Hydromorphone Hcl 0.5 Mg/0.5 Ml Syringe) 0.25 mg IVPUSH Q4H PRN; Protocol PRN Reason: Pain, Severe (Pain Scale 7-10) Last Admin: 05/01/24 21:27 Dose: 0.25 mg Lactated Ringer's (Lr) 1,000 mls @ 100 mls/hr IVCONT .Q10H [facility] Last Admin: 05/02/24 11:55 Dose: 100 mls/hr Magnesium Hydroxide (Milk Of Magnesia 30 Ml Oral.Susp) 30 ml PO DAILY PRN PRN Reason: Constipation Melatonin (Melatonin 3 Mg Tablet) 6 mg PO BEDTIME PRN PRN Reason: Insomnia Methocarbamol (Methocarbamol 500 Mg Tablet) 500 mg PO TID [facility] Last Admin: 05/02/24 08:33 Dose: 500 mg Naloxone HCl (Naloxone Hcl 0.4 Mg/Ml Vial) 0.04 mg IVPUSH Q5M PRN PRN Reason: Excessive sedation or RR < 8 Ondansetron HCl (Ondansetron Hcl 4 Mg/2 Ml Vial) 4 mg IVPUSH Q8H PRN PRN Reason: Nausea and Vomiting Oxycodone HCl (Oxycodone Hcl Immed Release 5 Mg Tablet) 5 mg PO Q4H PRN PRN Reason: Pain, Mild (Pain Scale 1-3) Oxycodone HCl (Oxycodone Hcl Immed Release 5 Mg Tablet) 10 mg PO Q4H PRN PRN Reason: Pain, Moderate(Pain Scale 4-6) Last Admin: 05/02/24 11:07 Dose: 10 mg Oxycodone HCl (Oxycodone Hcl Er 10 Mg Tab.Er.12h) 10 mg PO BID [facility] Last Admin: 05/02/24 08:33 Dose: 10 mg Promethazine HCl (Promethazine Hcl 25 Mg Tablet) 25 mg PO Q4H PRN PRN Reason: Nausea and Vomiting Sodium Chloride (0.9 % Sodium Chloride Flush 3 Ml Syringe) 3 ml IVFLUSH QSHIFT [facility] Last Admin: 05/02/24 08:25 Dose: Not Given Home Medications ?Medication ?Instructions ?Recorded ?Confirmed ?Last Taken ?Type fluticasone propionate 50 1 spray intranasal DAILY PRN 09/16/21 04/26/24 04/30/24 History mcg/actuation nasal Allergic Symptoms spray,suspension (Flonase Allergy Relief) calcium 600 mg (as 1 tab PO DAILY 04/15/24 04/26/24 04/30/24 History carbonate)-vitamin D3 5 mcg (200 unit) tablet Physical Exam 2 Vital Signs and Narrative: Vital Signs: Last Vital Signs Temp 98.3 F 05/02/24 07:55 Pulse 69 05/02/24 10:30 Resp 16 05/02/24 13:54 BP 123/63 05/02/24 13:54 Pulse Ox 95 05/02/24 13:54 O2 Del Method Room Air 05/02/24 13:54 O2 Flow Rate 6 05/01/24 10:15 BMI result Body Mass Index 24.0 Const: Other: General resting comfortably in no acute distress. Moist mucous membranes Neck supple no JVD. CVS regular rate rhythm, Respiratory lungs clear to auscultation, no respiratory distress, no wheeze. Gastrointestinal abdomen soft, non tender, bowel sounds audible Extremities no edema. Left knee dressing in place Neuro non focal . Skin no rash Psych appropriate affect Results Labs 05/02/24 05:35 05/02/24 05:35 Labs: Laboratory Results - last 24 hr 05/02/24 05:35 MCV 95.4 MCH 31.8 MCHC 33.3 RDW 13.2 Plt Count 180 MPV 9.9 Immature Gran % (Auto) 0.3 Neut % (Auto) 64.2 Lymph % (Auto) 24.2 [place] % (Auto) 10.7 Eos % (Auto) 0.3 Baso % (Auto) 0.3 Lymph # (Auto) 2.4 [place] # (Auto) 1.1 Eos # (Auto) 0.0 Baso # (Auto) 0.0 Abs Immat Gran (auto) 0.03 Absolute Neuts (auto) 6.5 Absolute Nucleated RBC 0.000 Nucleated RBC % (auto) 0.0 Anion Gap 10 L Estim Creat Clear Calc 66.5 Estimated GFR > 60 Fasting Glucose 99 Calcium 8.6 D Assessment and Plan (1) Status post total left knee replacement: Status: Acute (2) Symptomatic hypotension: Status: Acute Plan 73-year-old female underwent left total knee arthroplasty on 05/01 post surgery patient having symptoms of lightheadedness nausea diaphoresis mostly with standing and activity with PT. Symptomatic hypotension Likely due to polypharmacy currently on OxyContin, oxycodone, IV Dilaudid, Celebrex and methocarbamol, also due to drop in hematocrit Will discontinue scheduled methocarbamol 500 t.i.d. since no spasm at present recommend as needed, DC IV Dilaudid, change OxyContin to bedtime only orthostatic blood pressures neg,continue IV fluids, albumin 3.3 Hematocrit above transfusion threshold No evidence of acute infection, not on antihypertensives No concern for alcohol withdrawal Follow clinical course POD 2 s/p LT TKA Minimize analgesics/monitor CBC/PT as tolerated Thank you for allowing us to participate in the care of this patient will continue to follow patient along with you.
[2024-05-02 14:47] LABS: Albumin Level 3.3 g/dL (3.5-5.0)
[2024-05-02] MEDS: Acetaminophen 325 MG TABLET 650 MG PO ×2 (16:41→22:54)
[2024-05-02] MEDS: oxyCODONE HCl Immed Release 5 MG TABLET PO (16:42)
[2024-05-02] MEDS: Gabapentin 100 MG CAPSULE PO (20:12)
[2024-05-02] MEDS: ondansetron HCL 4 MG/2 ML VIAL IVPUSH (22:56)
[2024-05-03 03:58] VITALS: BP 126/59; PULSE 80; RESP 18; TEMP 37.1; O2SAT 95
[2024-05-03] MEDS: Acetaminophen 325 MG TABLET 650 MG PO (05:15)
[2024-05-03 06:33] LABS: MANUAL DIFF FLAG NO
[2024-05-03 06:48] LABS: Basophils Percent Auto 0.4 % (0-2); Eosinophils Absolute Auto 0.2 X10*3/uL (0.0-0.4); Hematocrit 26.9 % (37.0-47.0); Imm Gran Abs Auto 0.02 X10*3/uL (0.00-0.03); Imm Gran Pct Auto 0.3 % (0.0-0.4); Lymphocytes Absolute Auto 2.1 X10*3/uL (1.2-4.9); Lymphocytes Percent Auto 28.2 % (20-40); Mean Corpuscular HGB Conc 33.5 g/dl (31.0-35.0); Mean Corpuscular Volume 95.7 fL (80.0-98.0); Mean Platelet Volume 10.1 fL (9.4-12.3); Monocytes Absolute Auto 1.1 X10*3/uL (0.1-1.2); Monocytes Percent Auto 14.4 % (2-11); Neutrophils Percent Auto 54.7 % (45-73); Platelet Count 146 X10*3/uL (160-400); Red Blood Count 2.81 X10*6/uL (4.20-5.50); Red Cell Distribution Width 13.3 % (11.0-16.0); White Blood Count 7.4 X10*3/uL (4.8-10.8)
[2024-05-03 06:59] LABS: Anion Gap 12 (12-20); Blood Urea Nitrogen 11 mg/dL (9-16); Calcium 8.6 mg/dL (8.4-10.2); Carbon Dioxide 23 mmol/L (22-29); Chloride 110 mmol/L (96-108); Creatinine Clr Calc Pharmacy 69.6; Estimated Glomerular Filt Rate > 60; Glucose Fasting 119 mg/dL (60-99); Potassium 4.3 mmol/L (3.3-5.1); Sodium 141 mmol/L (135-145)
[2024-05-03] MEDS: Celecoxib 200 MG CAPSULE PO (07:23)
[2024-05-03] MEDS: Aspirin 325 MG TABLET PO (07:23)
[2024-05-03] MEDS: Calcium + Vitamin D 250 MG TABLET 500 MG PO (07:23)
[2024-05-03] MEDS: 0.9 % Sodium Chloride Flush 3 ML SYRINGE IVFLUSH (07:24)
[2024-05-03 07:41] VITALS: BP 144/64; PULSE 84; RESP 18; TEMP 37.1; O2SAT 95
[2024-05-03 07:42] VITALS: O2SAT 95
--- NOTE | 2024-05-03 09:47 | HO.POSTANES ---
Post Anesthesia Evaluation Post Anesthesia Evaluation Date of Service: 05/03/24 Vital Signs: Vital Signs Temp Pulse Resp BP Pulse Ox O2 Del Method 05/03/24 07:42 95 Room Air 05/03/24 07:41 98.8 F 84 18 144/64 H 95 Room Air 05/03/24 03:58 98.7 F 80 18 126/59 L 95 Room Air Anesthesia: Spinal Mental Status: Awake Pain Control: Satisfactory Nausea/Vomiting: None Hydration: Adequate Anesthesia-Related Issues: No Anes. Related Issues
--- NOTE | 2024-05-03 10:17 | P.PNIM_ITS ---
Subjective Subjective Date of Service: 05/03/24 Interval History: Feeling significantly better no further episodes of lightheadedness or dizziness participated with physical therapy, no acute events overnight denies heartburn or acidity. Review of Systems All other system reviewed and are negative. Physical Exam 2 Vital Signs: Vital Signs: Last Vital Signs Temp 98.8 F 05/03/24 07:41 Pulse 84 05/03/24 07:41 Resp 18 05/03/24 07:41 BP 144/64 H 05/03/24 07:41 Pulse Ox 95 05/03/24 07:42 O2 Del Method Room Air 05/03/24 07:42 O2 Flow Rate 6 05/01/24 10:15 BMI result Body Mass Index 24.0 Const: Other: General resting comfortably in no acute distress. Moist mucous membranes Neck supple no JVD. CVS regular rate rhythm, Respiratory lungs clear to auscultation, no respiratory distress, no wheeze. Gastrointestinal abdomen soft, non tender, bowel sounds audible Extremities no edema. Left knee dressing in place Neuro non focal . Skin no rash Psych appropriate affect Objective Data Active Medications Acetaminophen (Acetaminophen 325 Mg Tablet) 650 mg PO Q6H PRN PRN Reason: Pain, Mild (Pain Scale 1-3), fever or headache Last Admin: 05/03/24 05:15 Dose: 650 mg Documented By: JAC Aspirin (Aspirin 325 Mg Tablet) 325 mg PO BID [facility] Last Admin: 05/03/24 07:23 Dose: 325 mg Documented By: LENORE Calcium Carbonate/Cholecalciferol (Calcium + Vitamin D 250 Mg Tablet) 500 mg PO DAILY [facility] Last Admin: 05/03/24 07:23 Dose: 500 mg Documented By: LENORE Celecoxib (Celecoxib 200 Mg Capsule) 200 mg PO BID [facility] Last Admin: 05/03/24 07:23 Dose: 200 mg Documented By: LENORE Fluticasone Propionate (Fluticasone Propionate Nasal 16 Gm [place]) 1 spray NOSTRIL-B DAILY PRN PRN Reason: Allergic Symptoms Gabapentin (Gabapentin 100 Mg Capsule) 100 mg PO BEDTIME [facility] Last Admin: 05/02/24 20:12 Dose: 100 mg Documented By: JAC Magnesium Hydroxide (Milk Of Magnesia 30 Ml Oral.Susp) 30 ml PO DAILY PRN PRN Reason: Constipation Melatonin (Melatonin 3 Mg Tablet) 6 mg PO BEDTIME PRN PRN Reason: Insomnia Methocarbamol (Methocarbamol 500 Mg Tablet) 500 mg PO DAILY PRN PRN Reason: spasm Naloxone HCl (Naloxone Hcl 0.4 Mg/Ml Vial) 0.04 mg IVPUSH Q5M PRN PRN Reason: Excessive sedation or RR < 8 Ondansetron HCl (Ondansetron Hcl 4 Mg/2 Ml Vial) 4 mg IVPUSH Q8H PRN PRN Reason: Nausea and Vomiting Last Admin: 05/02/24 22:56 Dose: 4 mg Documented By: JAC Oxycodone HCl (Oxycodone Hcl Immed Release 5 Mg Tablet) 5 mg PO Q4H PRN PRN Reason: Pain, Mild (Pain Scale 1-3) Last Admin: 05/02/24 16:42 Dose: 5 mg Documented By: CHAZ Oxycodone HCl (Oxycodone Hcl Immed Release 5 Mg Tablet) 10 mg PO Q4H PRN PRN Reason: Pain, Moderate(Pain Scale 4-6) Last Admin: 05/02/24 11:07 Dose: 10 mg Documented By: CHAZ Oxycodone HCl (Oxycodone Hcl Er 10 Mg Tab.Er.12h) 10 mg PO BEDTIME [facility] Last Admin: 05/02/24 20:12 Dose: 10 mg Documented By: JAC Promethazine HCl (Promethazine Hcl 25 Mg Tablet) 25 mg PO Q4H PRN PRN Reason: Nausea and Vomiting Sodium Chloride (0.9 % Sodium Chloride Flush 3 Ml Syringe) 3 ml IVFLUSH QSHIFT [facility] Last Admin: 05/03/24 07:24 Dose: 3 ml Documented By: LENORE Labs 05/03/24 05:42 05/03/24 05:42 Labs: Laboratory Results - last 24 hr 05/02/24 05/03/24 05:35 05:42 MCV 95.7 MCH 32.0 MCHC 33.5 RDW 13.3 Plt Count 146 L MPV 10.1 Immature Gran % (Auto) 0.3 Neut % (Auto) 54.7 Lymph % (Auto) 28.2 [place] % (Auto) 14.4 H Eos % (Auto) 2.0 Baso % (Auto) 0.4 Lymph # (Auto) 2.1 [place] # (Auto) 1.1 Eos # (Auto) 0.2 Baso # (Auto) 0.0 Abs Immat Gran (auto) 0.02 Absolute Neuts (auto) 4.0 Absolute Nucleated RBC 0.000 Nucleated RBC % (auto) 0.0 Anion Gap 12 Estim Creat Clear Calc 69.6 Estimated GFR > 60 Fasting Glucose 119 H Calcium 8.6 Albumin 3.3 L Assessment and Plan (1) Symptomatic hypotension: Status: Acute (2) Status post total left knee replacement: Status: Acute Plan 73-year-old female underwent left total knee arthroplasty on 05/01 post surgery patient having symptoms of lightheadedness nausea diaphoresis mostly with standing and activity with PT. Symptomatic hypotension All symptoms Resolved, was Likely due to polypharmacy while on OxyContin, oxycodone, IV Dilaudid, Celebrex and methocarbamol, also due to drop in hematocrit Recommend to discontinue methocarbamol 500 t.i.d. orthostatic blood pressures neg Hematocrit above transfusion threshold No evidence of acute infection, not on antihypertensives No concern for alcohol withdrawal Recommend to decrease dose of Celebrex 200 mg daily while on aspirin 325 mg b.i.d., added Prilosec to avoid gastritis while on dual NSAIDs and age above 70 Recommend high-fiber diet/Metamucil to avoid constipation while on narcotics POD 2 s/p LT TKA Minimize analgesics/monitor CBC/PT as tolerated Patient is medically stable for discharge. Quality Stroke Does the patient have a stroke diagnosis?: No VTE Prior VTE?: No VTE Risk Level:: Surgical - very high VTE Device Contraindication: N/A - Device Ordered VTE Drug Contraindication: N/A - Med Ordered
--- NOTE | 2024-05-03 15:17 | MHC.CM.PN ---
IMM 05/02/24 Patient discharged to home with comfort plus. DC info has been sent to the agency. Patient arranged for transportation.
== END 2024-05-03 11:14 | disposition home health service (06) ==
LOC: HO.SSS 12:01 → HO.S3 12:03
PROVIDERS: Hospitalist; Orthopaedic Surgery; PCP Internal Medicine; Visit Provider Physician Assistant
PROC: (CPT 27447; principal; 2024-05-01 07:30)
DX: M17.12 Unilateral primary osteoarthritis, left knee (principal); M85.89 Other specified disorders of bone density and structure, multiple sites; M25.562 Pain in left knee; R26.2 Difficulty in walking, not elsewhere classified; I95.9 Hypotension, unspecified; E06.3 Autoimmune thyroiditis; J31.0 Chronic rhinitis; Z79.51 Long term (current) use of inhaled steroids; Z79.899 Other long term (current) drug therapy; Z99.89 Dependence on other enabling machines and devices
CPT/HCPCS: 27447; 36415; 80048; 82040; 83036; 85025; 86850; 86900; 86901; 87640; 87641; 88305; 88311; 93005; 93225; 97110; 97116; 97162; 97530; C1776; J0131; J0665; J0690; J1100; J1171; J2003; J2250; J2371; J2405; J2704; J2795; J3010; J3370; J7120

== ENCOUNTER → 2024-05-01 07:24 | Outpatient (BNV) | payer MEDICARE, SELFPAY | PROVIDERS: PCP Internal Medicine; Visit Provider Hospitalist | DX: I95.9 Hypotension, unspecified (principal); Z96.652 Presence of left artificial knee joint | CPT/HCPCS: 99232 ==

== ENCOUNTER → 2024-05-01 07:30 | Outpatient (BNV) | payer MEDICARE, SELFPAY | PROVIDERS: Admitting Provider Orthopaedic Surgery; PCP Internal Medicine; Visit Provider Orthopaedic Surgery | DX: Z96.652 Presence of left artificial knee joint (principal) | CPT/HCPCS: 27447; 99024; G0180 ==

== ENCOUNTER 2024-05-18 11:10 | Outpatient (REF) | payer MEDICARE, SELFPAY | END 2024-05-18 11:11 | disposition home or self-care (01) | LOC: HO.HOSX 11:10 | PROVIDERS: Visit Provider Physician Assistant | DX: M25.562 Pain in left knee (principal); M25.561 Pain in right knee; Z96.652 Presence of left artificial knee joint | CPT/HCPCS: 73560; 73562; 99212 ==

== ENCOUNTER 2024-05-18 12:12 | Outpatient (AMB) | payer MEDICARE, SELFPAY ==
--- NOTE | 2024-05-18 12:37 | MHC.OFFVIS ---
Intake Visit Reasons: 2WK PO: L TKA w/ 05/01/24 Intake Note: Leana is a 73 year old female whop resents today for a post op appointment s/p Left TKA 05/01/24 Patient reports she is doing well. Her pain is a little better and she has been working with PT. Allergies No Known Allergies Allergy (Verified 05/18/24 12:40) HPI HPI 2WK PO: L TKA w/ 05/01/24: Details: 73-year-old female who presents in the office today for a 17 days status post left total knee arthroplasty, which was performed on 05/01/[address] Escobedo. While in the office today, the patient is doing well post-operatively. She has been attending physical therapy and mentions her left knee pain is improving. [facility] Medical History COVID-19 Primary osteoarthritis of left knee Family history of breast cancer in sister Abnormal mammogram of both breasts Arthritis of left knee Osteopenia of multiple sites Hx of fracture of clavicle Rhinitis Eri's disease Laceration of forearm Surgical History Hx of lumpectomy H/O colonoscopy History of left oophorectomy Family History Father Substance use disorder Brother Substance use disorder Colon cancer Mother Mental health disorder Colon cancer Sister Breast cancer, Onset Age: 50 Social History Household Members: Spouse Housing: House Are you a primary acute care physical therapist to a significant other at home: No Do you presently have visiting nurse or other home services: No Alcohol intake: current Alcohol intake frequency: 0-2 drinks per day Alcohol type: wine Patient Tobacco Use Status: Never used Tobacco e-Cigarette/Vaping Use: Never Used Second Hand Smoke Exposure: No Advance Directives Date on File: 09/24/23 service: No Current occupational status: retired Current occupation: Right hand dominate Cognitive needs: No Hearing needs: No Vision needs: Yes Female Reproductive History Menstrual Age of Menarche: 14 Review of Systems Const All systems reviewed & are unremarkable except as noted in HPI and below Physical Exam Const General: cooperative, healthy appearing and no acute distress Resp Effort & Inspection: normal respiratory effort and able to speak in complete sentences Cardio Rate: regular rate Peripheral pulses: Peripheral pulses 2+ throughout GI Palpation (GI): Soft to palpation Skin Lesions: no lesions Rashes: no rashes Extrem Other: Left knee: Quakake intact. No surrounding erythema or drainage. Normal to inspection. No signs of infection. Range of motion is 0-110 degrees. NVI. Assessment & Plan Assessment & Plan (1) Status post total left knee replacement: Code(s): Z96.652 - Presence of left artificial knee joint Category: Surgical Plan Ms. Mills is a 73-year-old female who presents in the office today for a 17 days status post left total knee arthroplasty, which was performed on 05/01/[address] Escobedo. While in the office today, the patient is doing well post-operatively. She has been attending physical therapy and mentions her left knee pain is improving. Quakake were removed and steri-strips were applied. A referral for outpatient physical therapy has been placed today. Follow-up will be in [address] Escobedo, or sooner if needed. X-rays of the left knee, which were obtained while in the office today and were reviewed by me, Vernell Kirk PA-C, revealed: Intact orthopedic hardware with proper alignment. Orders: Orders XR knee LT 3V Today M25.569 - Pain in unspecified knee XR knee RT 1V Today M25.569 - Pain in unspecified knee PT Evaluation and Treatment Today Z96.652 - Presence of left artificial knee joint Patient Instructions: Scribed by Kirsta Hansen medical operations supervisor, for Vernell Kikr PA-C on 05/18/24 at 12:50 pm EST. Coding Level of Care Code Global (78301) Diagnoses Status post total left knee replacement Z96.652
== END 2024-05-18 14:20 | disposition home or self-care (01) ==
PROVIDERS: PCP Internal Medicine; Visit Provider Physician Assistant
DX: Z96.652 Presence of left artificial knee joint (principal)
CPT/HCPCS: 99024

== ENCOUNTER 2024-06-08 09:07 | Outpatient (AMB) | payer MEDICARE, SELFPAY ==
--- NOTE | 2024-06-08 09:10 | MHC.OFFVIS ---
Vital Signs 06/08/24 09:16 Height 5 ft 4 in Weight 139 lb 8 oz BMI 23.9 Intake Visit Reasons: 6WK PO: L TKA w/ 05/01/24 Intake Note: Leana is a 73 year old female who presents today for a post op appointment after undergoing a left total knee arthroplasty 05/01/24. She reports mild intermittent discomfort in her left knee. She denies any fevers or chills. She has begun outpatient physical therapy. She takes Tylenol and Celebrex which gave her fairly good relief. Allergies No Known Allergies Allergy (Verified 06/08/24 09:16) Medication List - Last Reconciled 06/08/24 by Bradley Escobedo MD acetaminophen 650 mg (2 x 325 mg) PO Q6H PRN 30 days amoxicillin 2,000 mg (4 x 500 mg) PO ONCE aspirin 325 mg PO BID 42 days calcium carbonate-vitamin D3 600 mg-5 mcg (200 unit) 1 tab PO DAILY fluticasone propionate 50 mcg/actuation (Flonase Allergy Relief) 1 spray intranasal DAILY PRN walker Folding front wheeled walker [facility] Medical History COVID-19 Primary osteoarthritis of left knee Family history of breast cancer in sister Abnormal mammogram of both breasts Arthritis of left knee Osteopenia of multiple sites Hx of fracture of clavicle Rhinitis Eri's disease Laceration of forearm Surgical History Hx of lumpectomy H/O colonoscopy History of left oophorectomy Family History Father Substance use disorder Brother Substance use disorder Colon cancer Mother Mental health disorder Colon cancer Sister Breast cancer, Onset Age: 50 Social History Household Members: Spouse Housing: House Are you a primary family day care provider to a significant other at home: No Do you presently have visiting nurse or other home services: No Alcohol intake: current Alcohol intake frequency: 0-2 drinks per day Alcohol type: wine Patient Tobacco Use Status: Never used Tobacco e-Cigarette/Vaping Use: Never Used Second Hand Smoke Exposure: No Advance Directives Date on File: 09/24/23 service: No Current occupational status: retired Current occupation: Right hand dominate Cognitive needs: No Hearing needs: No Vision needs: Yes Female Reproductive History Menstrual Age of Menarche: 14 Physical Exam Vital Signs: BMI result Body Mass Index 23.9 Extrem Other: Left knee examination shows that the surgical incision is well healed, no erythema, full active extension and flexion to 120 degrees, her patella tracks well Assessment & Plan Assessment & Plan (1) Left knee pain: Code(s): M25.562 - Pain in left knee Category: Medical Plan Leana continues to do very well after undergoing left total knee replacement surgery on 05/01/2024. She will continue with her physical therapy exercises. She does know to take antibiotics before any dental work. She will contact me prior to her follow-up appointment in 2 months should any questions or concerns arise. Feel free to call me at any time should questions regarding her orthopedic management arise. Medications: New amoxicillin Take four caps (2,000 mg) one hour before any dental work 2,000 mg (4 x 500 mg) PO ONCE 20 caps 3RF celecoxib (Celebrex) 200 mg PO DAILY PRN 30 caps 3RF pain Coding Level of Care Code Global (88475) Diagnoses Left knee pain M25.562
[2024-06-08 09:16] VITALS: BMI 23.9
== END 2024-06-08 09:36 | disposition home or self-care (01) ==
PROVIDERS: PCP Internal Medicine; Visit Provider Orthopaedic Surgery
DX: M25.562 Pain in left knee (principal)
CPT/HCPCS: 99024

== ENCOUNTER → 2024-06-08 09:07 | Outpatient (BNVA) | payer MEDICARE, SELFPAY | PROVIDERS: PCP Internal Medicine; Visit Provider Orthopaedic Surgery | DX: Z47.89 Encounter for other orthopedic aftercare (principal); Z98.890 Other specified postprocedural states | CPT/HCPCS: 99212 ==

== ENCOUNTER 2024-07-03 10:00 | Outpatient (RCR) | payer MEDICARE, SELFPAY ==
--- NOTE | 2024-06-07 11:41 | MHC.PT.EP ---
[facility] [place] Office [place] Office [place] Office [address] Coleen Conti [address] [phone] F: [phone] F: [phone] F: [phone] F: [phone] Physical Therapy Plan of Care Date of Evaluation: 06/07/24 Date of Surgery: 05/01/2024 Diagnosis: s/p L TKA 05/01/2024 Assessment: Patient is a 73 year old female presenting to PT s/p L TKA 05/01/2024. She presents today with impairments in pain, ROM, knee strength, hip strength, gait mechanics. Pt's current occupation is retired, with baseline physical activities including gardening, ambulating, stair negotiation, ADLs. 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 Clinical presentation today is most consistent with signs and sx associated with s/p L TKA 05/01/2024 and pt will benefit from skilled PT 2 week x 4 weeks to address the following problems and impairments noted upon evaluation: pain, ROM, knee strength, hip strength, gait mechanics.. These problems limit the patient with the following functional activities: pain, ROM, knee strength, hip strength, gait mechanics. The prescribed treatment plan of care is medically necessary. Co-morbidities of osteopenia were identified and taken into considerations of plan of care. Pt was educated on HEP, role of PT, prognosis, POC. Frequency and Duration: The patient will be seen 2 x week x 4 weeks Short Term Goals: Pt will demonstrate improved L knee ROM to 120. Pt will demonstrate improved knee strength by 1/3 grade in 2 weeks. Pt will demonstrate improved hip MMT strength by 1/3 grade in 2 weeks. Mat Linker Goals: Pt will demonstrate improved LEFI score by 9 points in 4 weeks for improved functional mobility. Pt will demonstrate ability to ambulate with no device in 4 weeks for return to PLOF. Pt will demonstrate ability to negotiate stairs step over step in 4 weeks for improved access to her basement. Treatment Plan: Modalities to reduce pain, spasms and effusion. Manual therapy to restore motion and function. Therapeutic exercise to improve strength and flexibility. Neuromuscular re-education for posture and balance. Therapeutic activities to return to functional activities of daily living. Electronically signed by: Britney Jordan, PT, DPT, ATC Please sign and return to therapist. Thank you for your referral.
--- NOTE | 2024-07-21 08:12 | MHC.PT.DC ---
[facility] [place] Office [place] Office [place] Office [address] Coleen Conti [address] [facility] [phone] F: [phone] F: [phone] F: [phone] F: [phone] Physical Therapy Discharge Report Diagnosis: s/p L TKA 05/01/2024 Date of Surgery: 05/01/2024 Date of Evaluation: 06/07/24 Date of Discharge: 07/21/24 Treatments to Date: 8 Cancellations to Date: 1 No Shows to Date: 0 Discharge Status: Improved Function Discharge Summary: Pt cancelled her last scheduled appointment which was supposed to be her last visit. She did not reschedule and therefore is d/c. Electronically signed by: Britney Jordan, PT, DPT, ATC Please sign and return to therapist. Thank you for your referral.
== END 2024-07-21 08:12 | disposition home or self-care (01) ==
LOC: HO.PTCHIC 10:00
PROVIDERS: PCP Internal Medicine; Visit Provider Physician Assistant
DX: Z96.652 Presence of left artificial knee joint (principal)
CPT/HCPCS: 97110; 97140; 97161; 97530

== ENCOUNTER 2024-09-06 09:07 | Outpatient (REF) | payer MEDICARE, SELFPAY ==
--- NOTE | ~2024-09-06 | XR_ITS ---
EXAMINATION: XR KNEE, LEFT CLINICAL INFORMATION: M25.562 - Pain in left knee COMPARISON: 05/18/2024, 09/02/2023. TECHNIQUE: Three views of the left knee. FINDINGS: There is been a total left knee arthroplasty. Femoral and tibial components are intact, well seated, in anatomic alignment. There is been associated patellar resurfacing. Normal patellar alignment. No fracture or periprosthetic abnormality. No evidence of joint effusion. Normal-appearing soft tissues. XR/XR knee LT 3V IMPRESSION: Status post total left knee arthroplasty without complication evident. Electronically signed by: Danial Gaffney MD 09/06/2024 10:14 AM EDT
--- OUTSIDE RECORDS SUMMARY | 2024-09-07 09:44 | XMS_ITS | Clinical Summary ---
Author Organization [address] Address [address] [place] [address] Phone Care Team Providers Care Plater Supervisor Name Role Phone Rachel Torres MD Primary Care Provider Surgical History Surgery Date Site/Laterality Comments OOPHORECTOMY PROCEDURE: [place] OOPHORECTOMY PARTIAL/TOTAL UNI/BI SALPINGOOPHORECTOMY 1999 PROCEDURE: [place] LAPAROSCOPY W/RMVL ADNEXAL STRUCTURES; COMMENT: benign tumor [...] Upcoming Encounters Date Type Department Care Team ([facility] st Contact Info) Description 12/22/2024 8:50 AM EDT Appointment Radiology Department [address] [address] Health Maintenance Due Date Last Done Comments [...] Signed Date: 04/24/2024 18:18 ET Workstation ID: [id number] Transcribed By: Self Edit Transcribed Date: 04/24/2024 18:16 ET Narrative 04/24/2024 6:18 PM EST STUDY: ??DUAL ENERGY X-RAY ABSORPTIOMETRY / DXA REASON FOR EXAM: ?? Female, 73 years old ??post-menopausal symptoms Menopausal and postmenopausal disorder TECHNIQUE: ?? Bone Mineral Density (BMD) measurements of the lumbar spine and left hip were obtained using [employer] W (S/N [id number]). ?? COMPARISON: February 04, 2021 ?? FINDINGS: [...] lumbar spineand left hip were obtained using [employer] W (S/N [id number]). COMPARISON: February 04, 2021 FINDINGS: L1-L4 BMD: [...] Osteoporosis -------- FINAL REPORT -------- Dictated By: Damain Salamanca Dictated Date: 04/24/2024 18:16 ET Assigned Physician: Damian Salamanca Reviewed and Electronically Signed By: Damian Salamanca Signed Date: 04/24/2024 18:18 ET Workstation ID: [id number] Transcribed By: Self Edit Transcribed Date: 04/24/2024 [...] [employer] Care Teams Plater Supervisor Relationship Specialty Start Date End Date Rachel Torres MD [address] [place] [address] PCP - General Internal Medicine 11/04/20
== END 2024-09-06 09:08 | disposition home or self-care (01) ==
LOC: HO.HOSX 09:07
PROVIDERS: Visit Provider Orthopaedic Surgery
DX: M25.562 Pain in left knee (principal)
CPT/HCPCS: 73562; 99212

== ENCOUNTER 2024-09-06 09:17 | Outpatient (AMB) | payer MEDICARE, SELFPAY ==
--- NOTE | 2024-09-06 09:20 | A.OFFVIS_ITS ---
Vital Signs 09/06/24 09:32 Height 5 ft 4 in Weight 139 lb BMI 23.9 Intake Visit Reasons: OV f/u: L TKA w/DR 05/01/24 Intake Note: Lenaa is a 74 year old female who presents today for follow up after undergoing a left total knee arthroplasty on 05/01/24. Patient reports she is doing well. She reports mild intermittent discomfort in her left knee. She denies any fevers or chills. She takes Tylenol as needed for her discomfort. She would like to return to [employer]. Allergies No Known Allergies Allergy (Verified 09/06/24 09:33) Medication List - Last Reconciled 09/06/24 by Bradley Escobedo MD acetaminophen 650 mg (2 x 325 mg) PO Q6H PRN 30 days amoxicillin 2,000 mg (4 x 500 mg) PO ONCE aspirin 325 mg PO BID 42 days calcium carbonate-vitamin D3 600 mg-5 mcg (200 unit) 1 tab PO DAILY celecoxib (Celebrex) 200 mg PO DAILY PRN fluticasone propionate 50 mcg/actuation (Flonase Allergy Relief) 1 spray intranasal DAILY PRN walker Folding front wheeled walker [facility] Medical History COVID-19 Primary osteoarthritis of left knee Family history of breast cancer in sister Abnormal mammogram of both breasts Arthritis of left knee Osteopenia of multiple sites Hx of fracture of clavicle Rhinitis Eri's disease Laceration of forearm Surgical History Hx of lumpectomy H/O colonoscopy History of left oophorectomy Family History Father Substance use disorder Brother Substance use disorder Colon cancer Mother Mental health disorder Colon cancer Sister Breast cancer, Onset Age: 50 Social History Household Members: Spouse Housing: House Are you a primary career and technology education teacher to a significant other at home: No Do you presently have visiting nurse or other home services: No Alcohol intake: current Alcohol intake frequency: 0-2 drinks per day Alcohol type: wine Patient Tobacco Use Status: Never used Tobacco e-Cigarette/Vaping Use: Never Used Second Hand Smoke Exposure: No Advance Directives Date on File: 09/24/23 service: No Current occupational status: retired Current occupation: Right hand dominate Cognitive needs: No Hearing needs: No Vision needs: Yes Female Reproductive History Menstrual Age of Menarche: 14 Physical Exam Vital Signs: BMI result Body Mass Index 23.9 Const Other: Well-nourished well-developed very friendly female awake alert and oriented x3 in no acute distress Extrem Other: Bilateral lower extremity examination shows good capillary refill, no skin lesions noted, normal sensation light touch Left knee examination shows that the surgical incision is well healed, no erythema, full active extension and flexion to 120 degrees, her patella tracks well Results Reviewed Results Reviewed: X-rays of the patient's left knee taken today show a total knee arthroplasty in good position with no signs of loosening, no acute bony abnormalities Assessment & Plan Assessment & Plan (1) Left knee pain: Code(s): M25.562 - Pain in left knee Category: Medical Plan Ms. Mills continues to do well after undergoing left total knee replacement surgery on 05/01/2024. She will continue with her home exercise program. She does know to take antibiotics before any dental work. She will contact me prior to her annual follow-up appointment should any questions or concerns arise. Feel free to call me at any time should questions regarding her orthopedic management arise. I spent 20 minutes in reviewing the patient's records and imaging studies, seeing the patient and documenting in the medical record. Orders: Orders XR knee LT 3V Today M25.562 - Pain in left knee Coding Level of Care Code Est Pt Level 3 (93782) Complex EM visit Add On G2211 Diagnoses Left knee pain M25.562
[2024-09-06 09:32] VITALS: BMI 23.9
--- OUTSIDE RECORDS SUMMARY | 2024-09-06 09:55 | XMS_ITS | Clinical Summary ---
Author Organization [address] Address [address] [place] [address] Phone Care Team Providers Care Manager Pricing Name Role Phone Rachel Torres MD Primary Care Provider Surgical History Surgery Date Site/Laterality Comments OOPHORECTOMY PROCEDURE: [place] OOPHORECTOMY PARTIAL/TOTAL UNI/BI SALPINGOOPHORECTOMY 1999 PROCEDURE: [place] LAPAROSCOPY W/RMVL ADNEXAL STRUCTURES; COMMENT: benign tumor of ovary, oophorectomy BREAST LUMPECTOMY benign Left PROCEDURE: HISTORICAL BREAST LUMPECTOMY; COMMENT: FIBROADEMA YRS AGO BREAST BIOPSY PROCEDURE: BX BREAST; PERC NEEDLE CORE W/IMAG GUID; COMMENT: LT BREAST BENIGN Medical History Medical History Date Comments Toxic diffuse goiter without mention of thyrotoxic crisis or storm DX:Toxic diffuse goiter wit hout mention of thyrotoxic crisis or storm Constipation DX:Constipation Family History Medical History Relation Name Comments Alcohol/Drug Father brother also Colon cancer Mother Asthma Other Other: thyroid unspe Other Allergies Sister 1 DX'D 50 Breast cancer Sister 1 DX'D 50 Relation Name Status Comments Brother Alive Father Alive Maternal Grandfather Maternal Grandmother Mother Other Paternal Grandfather Paternal Grandmother Sister 1 DX'D 50 Alive Sister 2 Alive Sister 3 Alive Sister 4 Alive Social History Tobacco Use Types Packs/Day Years Used Date Smoking Tobacco: Never Alcohol Use Standard Drinks/Week Comments No 0 (1 standard drink = 0.6 oz pur e alcohol) Comments Unknown Sex and Gender Information Value Date Recorded Sex Assigned at Not on file Legal Sex Female 4:03 AM EST Gender Identity Not on file Sexual Orientation Not on file Obstetrics History Plan of Treatment Upcoming Encounters Date Type Department Care Team ([facility] st Contact Info) Description 12/22/2024 8:50 AM EDT Appointment Radiology Department [address] [address] Health Maintenance Due Date Last Done Comments Colorectal Cancer Screening: Stool Based Tests (FOBT/FIT) 05/09/2022 Depression Screening 05/09/2022 Falls Risk Assessment 05/09/2022 Hepatitis C Screening 05/09/2022 Medicare Annual Wellness Visit 05/09/2022 Social Influencers of Health Screening 05/09/2022 Breast Cancer Screening 12/13/2025 12/14/19, 12/14/2023, 06/16/2023, Additional history exists RSV Immunization Adult Patients (1 - 1-dose 75+ series) 2027 DTaP,Tdap,and Td Vaccines (3 - Td or Tdap) 03/23/2031 03/23/2021, 04/05/2015 Osteoporosis Screening (Bone Density Screening) 04/24/2034 04/24/2024, 02/04/2021 Zoster Vaccines Completed 01/08/2022, 08/2021, 03/06/2017 Pneumococcal Vaccine: 50+ Years Completed 09/24/2023, 05/03/2019, 04/18/2018 COVID-19 Vaccine Completed 03/21/2024, , 03/13/2022, Additional history exists Influenza Vaccine Completed 03/21/2024, , 03/13/2022, Additional history exists HIB Vaccines Aged Out No longer eligi ble based on patient's age to complete this topic HPV Vaccines Aged Out No longer eligi ble based on patient's age to complete this topic Hepatitis A Vaccines Aged Out No long er eligible based on patient's age to complete this topic Hepatitis B Vaccines Aged Out No long er eligible based on patient's age to complete this topic IPV Vaccines Aged Out No longer eligi ble based on patient's age to complete this topic MMR Vaccines Aged Out No longer eligi ble based on patient's age to complete this topic Meningococcal ACWY Vaccine Aged Out N o longer eligible based on patient's age to complete this topic Meningococcal B Vaccine Aged Out No l onger eligible based on patient's age to complete this topic RSV Immunization Patients Under 20 months Aged Out No longer eligible based on patient's age to complete this topic Varicella Vaccines Aged Out No longer eligible based on patient's age to complete this topic Procedures Procedure Name Priority Date/Time Associated Diagnosis Comments BD BONE DENSITY DXA AXIAL SKELETON Routine 04/24/2024 10:37 AM EST Unspecified menopausal and perimenopausal disorder DIAGNOSTIC MAMMOGRAPHY INCLUDING CAD BILATERAL Routine 12/14/2023 9:26 AM EDT Encounter for screening mammogram for malignant neoplasm of breast from Last 3 Months or Most Recently Relevant to Health Maintenance Results * BD Bone Density DXA Axial Skeleton (04/24/2024 10:37 AM EST) Anatomical Region Laterality Modality Wrist, Hip, L-spine Bone Densito metry 04/24/2024 6:16 PM EST Impressions 04/24/2024 6:18 PM EST Osteoporosis Reference Information: The T-score is the number of standard deviations above or below the standard which is normal for young adults at their peak bone mineral density. The World Health Organization (WHO) interprets the T-scores as follows: At or above ??-1 SD ?Normal bone density Between -1 and -2.5 SD ??Osteopenia At or below -2.5 SD ?Osteoporosis -------- FINAL REPORT -------- Dictated By: Damian Salamanca Dictated Date: 04/24/2024 18:16 ET Assigned Physician: Damian Salamanca Reviewed and Electronically Signed By: Damian Salamanca Signed Date: 04/24/2024 18:18 ET Workstation ID: [id number] Transcribed By: Self Edit Transcribed Date: 04/24/2024 18:16 ET Narrative 04/24/2024 6:18 PM EST STUDY: ??DUAL ENERGY X-RAY ABSORPTIOMETRY / DXA REASON FOR EXAM: ?? Female, 73 years old ??post-menopausal symptoms Menopausal and postmenopausal disorder TECHNIQUE: ?? Bone Mineral Density (BMD) measurements of the lumbar spine and left hip were obtained using [employer] W (S/N [id number]). ?? COMPARISON: February 04, 2021 ?? FINDINGS: L1-L4 BMD: 0.865 g/cm2 L1-L4 T score: -1.7. ??This corresponds to osteopenia. This represents a 1.1 % increase in bone density compared with prior exam from February 04, 2021. Left femoral neck BMD: 0.575 g/cm2 Left femoral neck T score: -2.5. ??This corresponds to osteoporosis. Left total hip BMD: 0.705 g/cm2 Left total hip T score: -1.9. ??This corresponds to osteopenia. This represents a -9.1* % decrease in bone density compared with prior exam from February 04, 2021. * - Indicates a statistically significant change. Procedure Note Damian Salamanca MD - 04/24/2024 STUDY: DUAL ENERGY X-RAY ABSORPTIOMETRY / DXA REASON FOR EXAM: Female, 73 years old post-menopausal symptoms Menopausal and postmenopausal disorder TECHNIQUE: Bone Mineral Density (BMD) measurements of the lumbar spineand left hip were obtained using [employer] W (S/N [id number]). COMPARISON: February 04, 2021 FINDINGS: L1-L4 BMD: 0.865 g/cm2 L1-L4 T score: -1.7. This corresponds to osteopenia. This represents a 1.1 % increase in bone density compared with prior examfrom February 04, 2021. Left femoral neck BMD: 0.575 g/cm2 Left femoral neck T score: -2.5. This corresponds to osteoporosis. Left total hip BMD: 0.705 g/cm2 Left total hip T score: -1.9. This corresponds to osteopenia. This represents a -9.1* % decrease in bone density compared with priorexam from February 04, 2021. * - Indicates a statistically significant change. IMPRESSION: Osteoporosis Reference Information: The T-score is the number of standard deviations above or below thestandard which is normal for young adults at their peak bone mineraldensity. The World Health Organization (WHO) interprets the T-scores asfollows: At or above -1 SD Normal bone density Between -1 and -2.5 SD Osteopenia At or below -2.5 SD Osteoporosis -------- FINAL REPORT -------- Dictated By: Damian Salamanca Dictated Date: 04/24/2024 18:16 ET Assigned Physician: Damian Salamanca Reviewed and Electronically Signed By: Damian Salamanca Signed Date: 04/24/2024 18:18 ET Workstation ID: [id number] Transcribed By: Self Edit Transcribed Date: 04/24/2024 18:16 ET Rachel Torres MD IMG DXA PROCEDURES Final Re sult * DIAGNOSTIC MAMMOGRAPHY INCLUDING CAD BILATERAL (12/14/2023 9:26 AM EDT) Anatomical Region Laterality Modality Mammography 11/16/2022 8:05 AM EDT Narrative 12/14/2023 10:17 AM EDT This is a summary report. The complete report is available in the patient's medical record. If you cannot access the medical record, please contact the sending organization for a detailed fax or copy. Exam: Diagnostic mammogram History: 1 year follow-up of a probably benign asymmetry in the outer right breast. Comparison: 06/16/2023 and as far back as 11/01/2015 Findings: Bilateral full-field digital diagnostic mammography was performed with tomosynthesis and interpreted with computer-aided detection. Spot compression CC view with tomosynthesis of the outer right breast was included in addition to routine views. Breast parenchyma is composed of scattered fibroglandular densities. ??Stable nodular asymmetry in the posterior outer right breast. ??No new suspicious mass, architectural distortion, or suspicious calcifications in either breast. Impression: Stable probably benign asymmetry in the outer right breast. ??Recommend continued follow-up in 1 year. No new mammographic evidence of malignancy in either breast. BI-RADS 3-probably benign Procedure Note Polly Regan MD - 03/15/2024 This is a summary report. The complete report is available in thepatient's medical record. If you cannot access the medical record, pleasecontact the sending organization for a detailed fax or copy. Exam: Diagnostic mammogram History: 1 year follow-up of a probably benign asymmetry in the outerright breast. Comparison: 06/16/2023 and as far back as 11/01/2015 Findings: Bilateral full-field digital diagnostic mammography was performed withtomosynthesis and interpreted with computer-aided detection. Spotcompression CC view with tomosynthesis of the outer right breast wasincluded in addition to routine views. Breast parenchyma is composed of scattered fibroglandular densities.Stable nodular asymmetry in the posterior outer right breast. No newsuspicious mass, architectural distortion, or suspicious calcifications ineither breast. Impression: Stable probably benign asymmetry in the outer right breast. Recommendcontinued follow-up in 1 year. No new mammographic evidence of malignancy in either breast. BI-RADS 3-probably benign Rachel Torres MD IMG BI PROCEDURES Final Res ult from Last 3 Months or Most Recently Relevant to Health Maintenance Insurance [employer] Care Teams Manager Pricing Relationship Specialty Start Date End Date Rachel Torres MD [address] [place] [address] PCP - General Internal Medicine 11/04/20
== END 2024-09-06 09:42 | disposition home or self-care (01) ==
LOC: HO.HOS 09:18
PROVIDERS: PCP Internal Medicine; Visit Provider Orthopaedic Surgery
DX: M25.562 Pain in left knee (principal); Z96.652 Presence of left artificial knee joint
CPT/HCPCS: 99213; G2211

== ENCOUNTER → 2024-09-06 09:23 | Outpatient (BNV) | payer MEDICARE, SELFPAY | PROVIDERS: Visit Provider Radiology Diagnostic Radiology | DX: M25.562 Pain in left knee (principal); Z96.652 Presence of left artificial knee joint | CPT/HCPCS: 73562 ==

== ENCOUNTER 2024-09-27 08:39 | Outpatient (AMB) | payer MEDICARE, SELFPAY ==
--- OUTSIDE RECORDS SUMMARY | 2024-09-27 08:54 | XMS_ITS | Clinical Summary ---
Author Organization [address] Address [address] [place] [address] Phone Care Team Providers Care Microbiology Quality Control Technician Name Role Phone Rachel Torres MD Primary Care Provider Surgical History Surgery Date Site/Laterality Comments OOPHORECTOMY PROCEDURE: [place] OOPHORECTOMY PARTIAL/TOTAL UNI/BI SALPINGOOPHORECTOMY 1999 PROCEDURE: [place] LAPAROSCOPY W/RMVL ADNEXAL STRUCTURES; COMMENT: benign tumor [...] Upcoming Encounters Date Type Department Care Team ([facility] st Contact Info) Description 12/22/2024 8:50 AM EDT Appointment Radiology Department [address] [address] Health Maintenance Due Date Last Done Comments Colorectal Cancer Screening: Stool Based Tests (FOBT/FIT) 05/09/2022 Depression Screening 05/09/2022 Falls Risk Assessment 05/09/2022 Hepatitis C Screening 05/09/2022 Medicare Annual Wellness Visit 05/09/2022 Social Influencers of Health Screening 05/09/2022 COVID-19 Vaccine ( season) 2024 03/21/2024, 02/17/2023, 03/13/2022, Additional history exists Breast Cancer Screening 12/13/2025 12/14/19, 12/14/2023, 06/16/2023, Additional history exists RSV Immunization Adult Patients (1 - 1-dose 75+ series) 2027 DTaP,Tdap,and Td Vaccines (3 - Td or Tdap) 03/23/2031 03/23/2021, 04/05/2015 Osteoporosis Screening (Bone Density Screening) 04/24/2034 04/24/2024, 02/04/2021 Zoster Vaccines Completed 01/08/2022, 05/0 08/2021, 03/06/2017 Pneumococcal Vaccine: 50+ Years Completed 09/24/2023, 05/03/2019, 04/18/2018 Influenza Vaccine Completed 03/21/2024, , 03/13/2022, Additional [...] Wrist, Hip, L-spine Bone Densito metry 04/24/2024 6:1 6 PM EST Impressions 04/24/2024 6:18 PM EST [...] Signed Date: 04/24/2024 18:18 ET Workstation ID: [id number] Transcribed By: Self Edit Transcribed Date: 04/24/2024 18:16 ET Narrative 04/24/2024 6:18 PM EST STUDY: ??DUAL ENERGY X-RAY ABSORPTIOMETRY / DXA REASON FOR EXAM: ?? Female, 73 years old ??post-menopausal symptoms Menopausal and postmenopausal disorder TECHNIQUE: ?? Bone Mineral Density (BMD) measurements of the lumbar spine and left hip were obtained using [employer] W (S/N [id number]). ?? COMPARISON: February 04, 2021 ?? FINDINGS: [...] lumbar spineand left hip were obtained using [employer] W (S/N [id number]). COMPARISON: February 04, 2021 FINDINGS: L1-L4 BMD: [...] Signed Date: 04/24/2024 18:18 ET Workstation ID: [id number] Transcribed By: Self Edit Transcribed Date: 04/24/2024 18:16 ET us Rachel Torres MD IMG DXA PROCEDURES Final [...] [employer] Care Teams Microbiology Quality Control Technician Relationship Specialty Start Date End Date Rachel Torres MD [address] [place] [address] PCP - General Internal Medicine 11/04/20
[2024-09-27 09:14] VITALS: BP 130/80; PULSE 66; RESP 16; TEMP 36.4; O2SAT 99; BMI 23.7
--- NOTE | 2024-09-27 09:14 | A.OFFPC_ITS ---
Vital Signs 09/27/24 09:14 Height 5 ft 4 in Weight 138 lb BMI 23.7 BP 130/80 Blood Pressure Location Lt brachial Position Sitting Respiration 16 Pulse 66 Pulse Source Pulse Oximeter Temp 97.6 F Temp Source Oral Pulse Oximetry (%) 99 Oxygen Delivery Method Room Air Intake Visit Reasons: PE Intake Note: Pt is here today for PE Allergies No Known Allergies Allergy (Verified 09/27/24 09:55) Medication List - Last Reconciled 09/27/24 by Rachel Torres MD amoxicillin 2,000 mg (4 x 500 mg) PO ONCE calcium carbonate-vitamin D3 600 mg-5 mcg (200 unit) 1 tab PO DAILY celecoxib (Celebrex) 200 mg PO DAILY PRN fluticasone propionate 50 mcg/actuation (Flonase Allergy Relief) 1 spray intranasal DAILY PRN walker Folding front wheeled walker Tobacco use date assessed: 09/27/24 Fall risk assessment: No Falls in past year Last assessed Fall Risk: 09/27/24 Dental Screening Dental Screen Date: 09/27/24 Did you have a dental visit in the last 12 months?: Yes Did you have a dental problem in the last 6 months where you did not have access to dental care?: No Was dental information given to patient?: Patient has dentist HPI PE HPI Details 74 -year-old lady with history of Hashim marcella's disease, osteoporosis, primary osteoarthritis in left knee, hyperlipidemia, here today for physical exam. She is up-to-date with her screening mammogram, and last bone density done March 2024 at [facility] showed present now of osteoporosis in her left femoral neck. No history of fractures. She is up-to-date with her screening colonoscopy done in [address] Wilson which came back within normal limits but due to her positive family history for colon cancer, repeat colonoscopy is due again in 2028. She has been feeling well, with no complaints at present time. [facility] Medical History (Updated 10/01/24 @ 23:25 by Rachel Torres MD) Osteoporosis Hyperlipidemia Iron deficiency anemia COVID-19 Primary osteoarthritis of left knee Family history of breast cancer in sister Abnormal mammogram of both breasts Arthritis of left knee Osteopenia of multiple sites Hx of fracture of clavicle Rhinitis Eri's disease Laceration of forearm Surgical History Hx of lumpectomy H/O colonoscopy History of left oophorectomy Family History Father Substance use disorder Brother Substance use disorder Colon cancer Mother Mental health disorder Colon cancer Sister Breast cancer, Onset Age: 50 Social History Household Members: Spouse Housing: House Are you a primary career representative to a significant other at home: No Do you presently have visiting nurse or other home services: No Alcohol intake: current Alcohol intake frequency: 0-2 drinks per day Alcohol type: wine Patient Tobacco Use Status: Never used Tobacco e-Cigarette/Vaping Use: Never Used Second Hand Smoke Exposure: No Advance Directives Date on File: 09/24/23 service: No Current occupational status: retired Current occupation: Right hand dominate Cognitive needs: No Hearing needs: No Vision needs: Yes Female Reproductive History Menstrual Age of Menarche: 14 Questionnaire PHQ-9 Over the last 2 weeks, how often have you been bothered by any of the following problems? 1. Little interest or pleasure in doing things: not at all 2. Feeling down, depressed, or hopeless: not at all 3. Trouble falling or staying asleep, or sleeping too much: several days 4. Feeling tired or having little energy: several days 5. Poor appetite or overeating: not at all 6. Feeling bad about yourself - or that you are a failure or have let yourself or your family down: not at all 7. Trouble concentrating on things, such as reading the newspaper or watching television: not at all 8. Moving or speaking so slowly that other people could have noticed. Or the opposite - being so fidgety or restless that you have been moving around a lot more than usual: not at all 9. Thoughts that you would be better off or of hurting yourself in some way: not at all Total score: 2 Depression Screening Interpretation: Negative Depression Screening Done: Yes 15651 - PHQ-9 Billing: Yes Source: Developed by Drs. Hesham Warren, Poppy Berumen, Carl Acosta and colleagues, with an educational renuka from [employer]. Thrive Questionnaire Date Thrive assessed: 09/23/24 I am a: Patient What is your living situation today?: I have a steady place to live Within the past 12 months, did the food you bought not last and you didn't have the money to get more?: Never true Within the past 12 months, did you worry whether your food would run out before you got money to buy more?: Never true Do you have trouble paying for medicines?: No Do you have trouble getting transportation to medical appointments?: No Do you have trouble paying your heating and electricity bill?: No Do you have trouble taking care of your child, family member or friend?: No Do you have trouble with day-to-day activities such as bathing, preparing meals, shopping, managing finances, etc.?: No Are you currently unemployed and looking for a job?: No Are you interested in more education?: No Please select the resources that you would like help with: None Currently or been in a relationship where the following occur: No concerns reported THRIVE Score: 0 AUDIT C Alcohol Use Questionnaire (AUDIT-C) 1. How often do you have a drink containing alcohol?: 2-3 times a week 2. How many drinks containing alcohol do you have on a typical day when you are drinking?: 1 or 2 3. How often do you have six or more drinks on one occasion?: Never Total Score: 3 ONEIL-7 AMB Questionnaire ONEIL-7 Date ONEIL - 7 assessed: 09/27/24 Feeling nervous, anxious, or on edge: 0 = Not at all Not being able to stop or control worryin = Not at all Worrying too much about different things: 0 = Not at all Trouble relaxin = Not at all Being so restless that it is hard to sit still: 3 = Nearly every day Becoming easily annoyed or irritable: 0 = Not at all Feeling afraid as if something awful might happen: 0 = Not at all Total ONEIL-7 score (0-4 normal; 5-9 mild; 10-14 moderate; 15-21 severe): 3 Source: Developed by Drs. Hesham Warren, Poppy Berumen, Carl Acosta and colleagues, with an educational renuka from [employer]. ONEIL-7 Assessment Billing ONEIL-7 Assessment Tool: ONEIL-7 Assessment 25858 Review of Systems Const Reports no additional complaints Eyes Denies change in vision ENT Denies dizziness Card Denies chest pain at rest, Denies chest pain with activity, Denies rapid heart rate, Denies leg edema, Denies lightheadedness, Denies dyspnea, Denies dyspnea on exertion and Denies orthopnea Resp Denies cough, Denies dyspnea and Denies dyspnea on exertion GI Denies hematochezia and Denies change in stool character Reports no additional complaints and Denies nipple discharge Musc Denies abnormal gait, Denies limited range of motion, Denies muscle cramps, Denies muscle weakness, Denies numbness, Denies radiating pain into limb, Reports stiffness and Denies tingling Skin/Breast Denies breast pain, Denies breast mass, Denies nipple discharge and Denies rash Neuro Denies abnormal gait, Denies dizziness, Denies numbness and Denies tingling Psych Reports no additional complaints Endo Reports no additional complaints Bishop/Lymph Denies easy bleeding and Denies easy bruising Aller/Immun Reports no additional complaints Physical exam (Primary Care) Vital Signs: Last Vital Signs Temp 97.6 F 09/27/24 09:14 Pulse 66 09/27/24 09:14 Resp 16 09/27/24 09:14 BP 130/80 09/27/24 09:14 Pulse Ox 99 09/27/24 09:14 Oxygen Delivery Method Room Air 09/27/24 09:14 BMI result Body Mass Index 23.7 Tobacco/Smoking Status: Tobacco use Status Tobacco use date assessed 09/27/24 09/27/24 09:20 Patient Tobacco Use Status Never used Tobacco 09/27/24 09:20 e-Cigarette/Vaping Use Never Used 09/27/24 09:20 PHQ-9: PHQ-9 Score PHQ-9: Total score 2 09/27/24 09:50 Depression Screening Interpretation: Negative Thrive Assessment: Date of Thrive Assessment Date Thrive assessed 09/23/24 09/27/24 09:20 Currently or been in a relationship where the following occur: No concerns reported Const Other: Alert oriented pt 3, no acute distress, normal gait HENMT Head: Yes normocephalic Ears: TM's normal bilaterally General nose exam: Normal external nose present Face and sinus: Yes face symmetric Mouth: Normal oral and palatal mucosa present and moist mucous membranes Eyes General: appearance normal, both eyes and all related structures Neck Neck: Yes full ROM, Yes no lymphadenopathy, Yes no meningeal signs and Yes supple Thyroid: Thyroid normal Resp Effort & Inspection: normal respiratory effort and able to speak in complete sentences Auscultation: clear to auscultation bilaterally Cardio Other: S1-S2 present regular rate and rhythm Bruits: no abdominal aortic bruits GI Palpation (GI): No Abdominal aortic bruit present, Soft to palpation, nontender, no guarding and no masses General: Yes no CVA tenderness Back/Spine/Pelvis Back: no CVA tenderness and No back tenderness Skin General skin exam: no rashes or lesions noted Neuro General: tone normal, moves all extremities, Normal light touch and pain sensation, no meningeal signs, no focal motor deficits and CN's II-XI intact bilaterally Extrem General: Yes full ROM, Yes no pedal edema and Yes no calf tenderness Psych Appearance: grossly normal and well kempt Mental Status: mental status grossly normal Speech and movement: Normal speech and movement present Affect: normal affect Attitude: cooperative Thought process: Normal thought process present Thought content: Normal thought content present Coding Level of Care Code Est Pt Prev Care >65y(70340) Diagnoses Annual visit for general adult medical examination with abnormal findings 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 Pure hypercholesterolemia E78.00 Hyperlipidemia type: pure hypercholesterolemia Iron deficiency anemia, unspecified iron deficiency anemia type D50.9 Iron deficiency anemia type: unspecified iron deficiency Age-related osteoporosis without current pathological fracture M81.0 Osteoporosis type: age-related Presence of current pathological fracture: without current pathological fracture Additional Codes PHQ-9 - 38272 - PHQ-9 Billing: Yes ([id number]) ONEIL-7 Assessment Billing - ONEIL-7 Assessment Tool: ONEIL-7 Assessment 21336 ([id number]) Assessment & Plan Assessment & Plan (1) Annual visit for general adult medical examination with abnormal findings: Code(s): Z00.01 - Encounter for general adult medical examination with abnormal findings Plan: Will check appropriate labs. Continued dental visit every 6 months and regular eye exams, at least every 2 years. Take adequate calcium in diet and vitamin-D 3 at 2000 IU per cap once a day, in addition to weight-bearing exercises to help maintain good muscle tone and weight control. 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 Category: Medical Plan: Check thyroid peroxidase antibodies, free T4 and TSH level (3) Hyperlipidemia: Code(s): E78.5 - Hyperlipidemia, unspecified Category: Medical Qualifiers: Hyperlipidemia type: pure hypercholesterolemia Qualified Code(s): E78.00 - Pure hypercholesterolemia, unspecified Plan: Fasting lipid panel ordered, reinforced importanc of following a low-cholesterol diet, and getting at least 30 minutes of exercise daily (4) Iron deficiency anemia: Code(s): D50.9 - Iron deficiency anemia, unspecified Category: Medical Qualifiers: Iron deficiency anemia type: unspecified iron deficiency Qualified Code(s): D50.9 - Iron deficiency anemia, unspecified Plan: Ordered a repeat CBC with iron profile (5) Osteoporosis: Code(s): M81.0 - Age-related osteoporosis without current pathological fracture Category: Medical Qualifiers: Osteoporosis type: age-related Presence of current pathological fracture: without current pathological fracture Qualified Code(s): M81.0 - Age- related osteoporosis without current pathological fracture Plan: Latest bone density scan done at [facility] came back positive for osteoporosis left femoral neck, no history of fractures, ordered a comprehensive metabolic panel, and vitamin-D level. Endocrine consult obtained, Orders: Orders Complete Blood Count Auto Diff 09/27/24 D50.9 - Iron deficiency anemia, unspecified, E06.3 - Autoimmune thyroiditis, E78.5 - Hyperlipidemia, unspecified, M85.89 - Other specified disorders of bone density and structure, multiple sites, Z00.01 - Encounter for general adult medical examination with abnormal findings IRON PROFILE 09/27/24 D50.9 - Iron deficiency anemia, unspecified, E06.3 - Autoimmune thyroiditis, E78.5 - Hyperlipidemia, unspecified, M85.89 - Other specified disorders of bone density and structure, multiple sites, Z00.01 - Encounter for general adult medical examination with abnormal findings Comprehensive Lindrith. Panel Fast 09/27/24 D50.9 - Iron deficiency anemia, unspecified, E06.3 - Autoimmune thyroiditis, E78.5 - Hyperlipidemia, unspecified, M85.89 - Other specified disorders of bone density and structure, multiple sites, Z00.01 - Encounter for general adult medical examination with abnormal findings Thyroid Peroxidase Antibodies 09/27/24 D50.9 - Iron deficiency anemia, unspecified, E06.3 - Autoimmune thyroiditis, E78.5 - Hyperlipidemia, unspecified, M85.89 - Other specified disorders of bone density and structure, multiple sites, Z00.01 - Encounter for general adult medical examination with abnormal findings Thyroid Stimulating Hormone 09/27/24 D50.9 - Iron deficiency anemia, unspecified, E06.3 - Autoimmune thyroiditis, E78.5 - Hyperlipidemia, u nspecified, M85.89 - Other specified disorders of bone density and structure, multiple sites, Z00.01 - Encounter for general adult medical examination with abnormal findings Free T4 (Free Thyroxine) 09/27/24 D50.9 - Iron deficiency anemia, unspecified, E06.3 - Autoimmune thyroiditis, E78.5 - Hyperlipidemia, unspecified, M85.89 - Other specified disorders of bone density and structure, multiple sites, Z00.01 - Encounter for general adult medical examination with abnormal findings Lipid Panel 09/27/24 D50.9 - Iron deficiency anemia, unspecified, E06.3 - Autoimmune thyroiditis, E78.5 - Hyperlipidemia, unspecified, M85.89 - Other specified disorders of bone density and structure, multiple sites, Z00.01 - Encounter for general adult medical examination with abnormal findings Vitamin D 25-OH Total 09/27/24 D50.9 - Iron deficiency anemia, unspecified, E06.3 - Autoimmune thyroiditis, E78.5 - Hyperlipidemia, unspecified, M85.89 - Other specified disorders of bone density and structure, multiple sites, Z00.01 - Encounter for general adult medical examination with abnormal findings Referrals Endocrinology Referral M81.0 - Age-related osteoporosis without current pathological fracture
== END 2024-09-27 10:09 | disposition home or self-care (01) ==
LOC: HO.HMCC 08:40
PROVIDERS: PCP Internal Medicine; Visit Provider Internal Medicine
DX: Z00.01 Encounter for general adult medical examination with abnormal findings (principal); E06.3 Autoimmune thyroiditis; E78.00 Pure hypercholesterolemia, unspecified; D50.9 Iron deficiency anemia, unspecified; M81.0 Age-related osteoporosis without current pathological fracture

== ENCOUNTER 2024-09-27 08:39 | Outpatient (REF) | payer MEDICARE, SELFPAY ==
--- OUTSIDE RECORDS SUMMARY | 2024-09-27 11:23 | XMS_ITS | Clinical Summary ---
Author Organization [address] Address [address] [place] [address] Phone Care Team Providers Care Securities Adviser Name Role Phone Rachel Torres MD Primary Care Provider Surgical History Surgery Date Site/Laterality Comments OOPHORECTOMY PROCEDURE: GA OOPHORECTOMY PARTIAL/TOTAL UNI/BI SALPINGOOPHORECTOMY 1999 PROCEDURE: GA LAPAROSCOPY W/RMVL ADNEXAL STRUCTURES; COMMENT: benign tumor [...] Upcoming Encounters Date Type Department Care Team ([facility] st Contact Info) Description 12/22/2024 8:50 AM EDT Appointment Radiology Department [address] [address] Health Maintenance Due Date Last Done Comments [...] Signed Date: 04/24/2024 18:18 ET Workstation ID: [id number] Transcribed By: Self Edit Transcribed Date: 04/24/2024 18:16 ET Narrative 04/24/2024 6:18 PM EST STUDY: ??DUAL ENERGY X-RAY ABSORPTIOMETRY / DXA REASON FOR EXAM: ?? Female, 73 years old ??post-menopausal symptoms Menopausal and postmenopausal disorder TECHNIQUE: ?? Bone Mineral Density (BMD) measurements of the lumbar spine and left hip were obtained using [employer] W ([id number]/N [id number]). ?? COMPARISON: February 04, 2021 ?? FINDINGS: [...] lumbar spineand left hip were obtained using [employer] W ([id number]/N [id number]). COMPARISON: February 04, 2021 FINDINGS: L1-L4 BMD: [...] Signed Date: 04/24/2024 18:18 ET Workstation ID: [id number] Transcribed By: Self Edit Transcribed Date: 04/24/2024 [...] [employer] Care Teams Securities Adviser Relationship Specialty Start Date End Date Rachel Torres MD [address] [place] [address] PCP - General Internal Medicine 11/04/20
[2024-09-27 13:30] LABS: MANUAL DIFF FLAG NO
[2024-09-27 13:45] LABS: Basophils Percent Auto 0.7 % (0-2); Eosinophils Absolute Auto 0.2 X10*3/uL (0.0-0.4); Eosinophils Percent Auto 3.2 % (0-4); Hematocrit 41.1 % (37.0-47.0); Hemoglobin 13.3 g/dl (12.0-16.0); Imm Gran Abs Auto 0.01 X10*3/uL (0.00-0.03); Imm Gran Pct Auto 0.2 % (0.0-0.4); Lymphocytes Absolute Auto 1.9 X10*3/uL (1.2-4.9); Lymphocytes Percent Auto 33.2 % (20-40); Mean Corpuscular HGB Conc 32.4 g/dl (31.0-35.0); Mean Corpuscular Hemoglobin 30.4 pg (27.0-33.0); Mean Corpuscular Volume 94.1 fL (80.0-98.0); Mean Platelet Volume 9.8 fL (9.4-12.3); Monocytes Absolute Auto 0.6 X10*3/uL (0.1-1.2); Monocytes Percent Auto 9.7 % (2-11); Platelet Count 242 X10*3/uL (160-400); Red Blood Count 4.37 X10*6/uL (4.20-5.50); Red Cell Distribution Width 14.6 % (11.0-16.0); White Blood Count 5.7 X10*3/uL (4.8-10.8)
[2024-09-27 14:05] LABS: Alanine Aminotransferase 16 U/L (0-31); Albumin Level 4.2 g/dL (3.5-5.0); Alkaline Phosphatase 88 U/L (39-117); Anion Gap 12 (12-20); Aspartate Amino Transferase 25 U/L (5-31); Blood Urea Nitrogen 13 mg/dL (9-16); Calcium 9.4 mg/dL (8.4-10.2); Carbon Dioxide 24 mmol/L (22-29); Chloride 108 mmol/L (96-108); Cholesterol 189 mg/dL (<200); Estimated Glomerular Filt Rate > 60; Glucose Fasting 94 mg/dL (60-99); HDL Cholesterol 62 mg/dL (>40); Iron 117 mcg/dL (30-160); LDL Cholesterol Calculated 116 mg/dL (<100); Percent Iron Saturation 40 % (15-50); Potassium 3.9 mmol/L (3.3-5.1); Sodium 140 mmol/L (135-145); Total Iron Binding Capacity 295 mcg/dL (228-428); Total Protein 7.1 g/dL (6.5-8.0); Triglycerides 58 mg/dL (<150); Unsaturated Iron Binding 178 ug/dL
[2024-09-27 14:20] LABS: Free T4 (Free Thyroxine) 1.11 ng/dL (0.71-1.85); Thyroid Stimulating Hormone 1.51 uIU/mL (0.32-4.0); Vitamin D 25-OH Total 60.1 ng/mL (>30)
[2024-09-28 22:15] LABS: Thyroid Peroxidase Antibodies 190 IU/mL (<9)
== END 2024-09-27 08:40 | disposition home or self-care (01) ==
LOC: HO.HMGCLDS 08:39
PROVIDERS: PCP Internal Medicine; Visit Provider Internal Medicine
DX: Z00.01 Encounter for general adult medical examination with abnormal findings (principal); E06.3 Autoimmune thyroiditis; E78.00 Pure hypercholesterolemia, unspecified; D50.9 Iron deficiency anemia, unspecified; M81.0 Age-related osteoporosis without current pathological fracture; E78.5 Hyperlipidemia, unspecified
CPT/HCPCS: 36415; 80053; 80061; 82306; 83540; 84439; 84443; 85025; 86376; 96127; 99397

== ENCOUNTER 2024-10-26 09:09 | Outpatient (AMB) | payer MEDICARE, SELFPAY ==
[2024-10-26 09:16] VITALS: BP 130/78; PULSE 64; O2SAT 98; BMI 23.8
--- NOTE | 2024-10-26 09:16 | MHC.OFFVIS ---
Vital Signs 10/26/24 09:16 Height 5 ft 4 in Weight 138 lb 7.205 oz BMI 23.8 BP 130/78 Blood Pressure Location Lt brachial Position Sitting Pulse 64 Pulse Source Pulse Oximeter Pulse Oximetry (%) 98 Oxygen Delivery Method Room Air Intake Visit Reasons: 6m follow up r/s Intake Note: Pt presents to the office today for a 6 month follow up. Pt states she is overall feeling well. Allergies No Known Allergies Allergy (Verified 10/26/24 09:17) Medication List - Last Reconciled 10/26/24 by Rhonda Guevara, TASHA-C amoxicillin 2,000 mg (4 x 500 mg) PO ONCE calcium carbonate-vitamin D3 600 mg-5 mcg (200 unit) 1 tab PO DAILY celecoxib (Celebrex) 200 mg PO DAILY PRN fluticasone propionate 50 mcg/actuation (Flonase Allergy Relief) 1 spray intranasal DAILY PRN walker Folding front wheeled walker HPI HPI 6m follow up r/s: Details: Leana is a 74-year-old female with past medical history of osteoarthritis, recent left total knee replacement who was previously evaluated for presyncopal episode without significant findings. She was thought to have had vasovagal event. Her echocardiogram did show EF 50-55%. Last visit 04/21/2024. Today she reports that she has been doing well since her last visit. She did undergo the knee replacement surgery without any known cardiac complications. She has had no issues with lightheadedness, no presyncope, syncope, falls. She denies any chest discomfort or shortness of breath. She reports good activity level and has been active with walking 3 miles per day and doing gardening. She continues to drink a glass of wine periodically though not daily. She is asking about her low normal EF. Otherwise no cardiac concerns. [facility] Medical History Osteoporosis Hyperlipidemia Iron deficiency anemia COVID-19 Primary osteoarthritis of left knee Family history of breast cancer in sister Abnormal mammogram of both breasts Arthritis of left knee Osteopenia of multiple sites Hx of fracture of clavicle Rhinitis Eri's disease Laceration of forearm Surgical History Hx of lumpectomy H/O colonoscopy History of left oophorectomy Family History Father Substance use disorder Brother Substance use disorder Colon cancer Mother Mental health disorder Colon cancer Sister Breast cancer, Onset Age: 50 Social History Household Members: Spouse Housing: House Are you a primary manager care management to a significant other at home: No Do you presently have visiting nurse or other home services: No Alcohol intake: current Alcohol intake frequency: 0-2 drinks per day Alcohol type: wine Patient Tobacco Use Status: Never used Tobacco e-Cigarette/Vaping Use: Never Used Second Hand Smoke Exposure: No Advance Directives Date on File: 09/24/23 service: No Current occupational status: retired Current occupation: Right hand dominate Cognitive needs: No Hearing needs: No Vision needs: Yes Female Reproductive History Menstrual Age of Menarche: 14 Review of Systems Const All systems reviewed & are unremarkable except as noted in HPI and below Card Denies no additional complaints, Denies chest pain, Denies chest pain at rest, Denies chest pain with activity, Denies syncope, Denies rapid heart rate, Denies leg edema, Denies dyspnea, Denies dyspnea on exertion and Denies orthopnea Resp Denies dyspnea and Denies dyspnea on exertion GI Denies no additional complaints Musc Denies no additional complaints Neuro Denies syncope Physical Exam Vital Signs: Last Vital Signs Pulse 64 10/26/24 09:16 BP 130/78 10/26/24 09:16 Pulse Ox 98 10/26/24 09:16 Oxygen Delivery Method Room Air 10/26/24 09:16 BMI result Body Mass Index 23.8 Const General: cooperative, healthy appearing, comfortable and no acute distress Orientation/consciousness: patient oriented x3 Neck Neck: Yes normal visual inspection Resp Effort & Inspection: normal respiratory effort Auscultation: clear to auscultation bilaterally, no crackles, no rales, no rhonchi and no wheezes Cardio Jugular venous distension: no JVD Rate: regular rate Rhythm: regular rhythm Heart sounds: S1 normal heart sound present, S2 normal heart sound present, no murmurs and no rubs Neuro General: patient oriented x3 Extrem General: Yes normal to inspection, No no pedal edema and No calf tenderness Psych Appearance: grossly normal Mental Status: mental status grossly normal Speech and movement: Normal speech and movement present Assessment & Plan Assessment & Plan (1) Near syncope: Code(s): R55 - Syncope and collapse Category: Medical Plan: Presyncopal event on 04/11/2024, while sitting playing cards, drinking wine. She describes feeling ill with nausea prior to memory lapse of the event. She was found to have hypotension by EMS and given IV fluids. EKG and troponin levels were normal. Episode seemed vasovagal. Echocardiogram 04/25/2024 showed EF 50-55%, no valve abnormalities and no regional wall motion abnormalities, grade 1 diastolic dysfunction. Holter monitor done 04/21/2024 showed sinus rhythm with average heart rate 76, rare ventricular and supraventricular ectopy. No recurrent syncopal events. Instructed on maintaining good hydration, recognizing symptoms then sit or lay down if needed. Limit alcohol intake. At this time will plan for cardiology follow-up as needed. (2) Abnormal echocardiogram findings without diagnosis: Code(s): R93.1 - Abnormal findings on diagnostic imaging of heart and coronary circulation Category: Medical Plan: Echocardiogram showed EF 50-55% which is low normal. No clear identifiable cause for this finding. Will recheck limited echocardiogram to re-evaluate. If EF is further reduce then will plan for a nuclear stress test. If EF is unchanged or greater then no further testing needed at this time. Plan Time spent on chart review, documentation, interview, assessment I discussed with the patient the importance of monitoring her cardiac function due to the previously noted mildly reduced ejection fraction. I explained the purpose of the limited echocardiogram and the potential need for a stress test if her ejection fraction decreases. We reviewed the importance of symptom monitoring, particularly for chest pain, dizziness, or shortness of breath, and the role of hydration in managing dizziness. The benefits and risks of the proposed plan were discussed, and the patient expressed understanding and consented to proceed with the echocardiogram. I instructed her to remain vigilant for any new symptoms and to contact us if they arise. The patient is comfortable with an as-needed follow-up approach and will be scheduled for the echocardiogram by centralized scheduling. Results will be communicated promptly. Orders: Orders CA Echo Limited Today R93.1 - Abnormal findings on diagnostic imaging of heart and coronary circulation Patient Instructions: - Monitor for symptoms like chest pain, dizziness, or shortness of breath. - Stay hydrated, especially during outdoor activities. - Expect a call from centralized scheduling for the echocardiogram appointment. - Contact us if you experience any new or worsening symptoms. - Follow up with your primary care doctor regularly. Patient was informed and verbally consented to the use of an ambient scribe for clinic note documentation during this visit. Coding Level of Care Code Est Pt Level 4 (80949) Diagnoses Near syncope R55 Abnormal echocardiogram findings without diagnosis R93.1 Time Spent (min) 30
--- OUTSIDE RECORDS SUMMARY | 2024-10-26 09:31 | XMS_ITS | Clinical Summary ---
Author Organization [address] Address [address] [place] [address] Phone Care Team Providers Care Game Bird Farmer Name Role Phone Rachel Torres MD Primary Care Provider Surgical History Surgery Date Site/Laterality Comments OOPHORECTOMY PROCEDURE: PA OOPHORECTOMY PARTIAL/TOTAL UNI/BI SALPINGOOPHORECTOMY 1999 PROCEDURE: PA LAPAROSCOPY W/RMVL ADNEXAL STRUCTURES; COMMENT: benign tumor [...] Upcoming Encounters Date Type Department Care Team ([facility] st Contact Info) Description 12/22/2024 8:50 AM EDT Appointment Radiology Department [address] [address] Health Maintenance Due Date Last Done Comments [...] Signed Date: 04/24/2024 18:18 ET Workstation ID: [id number] Transcribed By: Self Edit Transcribed Date: 04/24/2024 18:16 ET Narrative 04/24/2024 6:18 PM EST STUDY: ??DUAL ENERGY X-RAY ABSORPTIOMETRY / DXA REASON FOR EXAM: ?? Female, 73 years old ??post-menopausal symptoms Menopausal and postmenopausal disorder TECHNIQUE: ?? Bone Mineral Density (BMD) measurements of the lumbar spine and left hip were obtained using [employer] Discovery W (S/N [id number]). ?? COMPARISON: February 04, 2021 ?? FINDINGS: [...] lumbar spineand left hip were obtained using [employer] Discovery W (S/N 52852). COMPARISON: February 04, 2021 FINDINGS: L1-L4 BMD: [...] Signed Date: 04/24/2024 18:18 ET Workstation ID: [id number] Transcribed By: Self Edit Transcribed Date: 04/24/2024 [...] [employer] [employer] Care Teams Game Bird Farmer Relationship Specialty Start Date End Date Rachel Torres MD [address] [place] [address] PCP - General Internal Medicine 11/04/20
== END 2024-10-26 09:59 | disposition home or self-care (01) ==
LOC: HO.HCS 09:10
PROVIDERS: PCP Internal Medicine; Visit Provider Nurse Practitioner Family
DX: R55 Syncope and collapse (principal); R93.1 Abnormal findings on diagnostic imaging of heart and coronary circulation
CPT/HCPCS: 99214

== ENCOUNTER → 2024-10-26 09:09 | Outpatient (BNVA) | payer MEDICARE, SELFPAY | PROVIDERS: PCP Internal Medicine; Visit Provider Nurse Practitioner Family | DX: R55 Syncope and collapse (principal); R93.1 Abnormal findings on diagnostic imaging of heart and coronary circulation | CPT/HCPCS: 99212 ==

== ENCOUNTER → 2024-12-06 09:46 | Outpatient (REF) | payer MEDICARE, SELFPAY ==
--- NOTE | 2024-12-06 09:50 | CA_ITS ---
Transthoracic Echocardiogram Patient (Last, First, Middle): Leana Mills, Gender: Female Date of : 1950 Age: 74 Procedure Date: 12/06/2024 Procedure Type: Transthoracic Echocardiogram Location: OP Height: 162.56 cm Weight: 62.6 kg BSA: 1.67 m2 Heart Rate: 61 bpm BP: 130 / 78 mmHg Safety Scientist: JOSIANE Referring MD: Rhonda Guevara LINER CHECKER-C Communications Administrator: Harris Mo MD Symptoms: R93.1 - Abnormal findings on diagnostic imaging of heart and coronary ci... Study Quality: Adequate/limited ordered for lv function ECG Rhythm: Sinus Conclusions: - Normal LV ejection fraction 55-60% with grade 1 diastolic dysfunction Findings Left Ventricle Normal left ventricular size, thickness, and systolic function. The visually estimated ejection fraction is between 55-60%. Spectral Doppler is indicative of an impaired relaxation filling pattern. E/E prime ratio is <8, consistent with normal filling pressures. Evidence suggests grade I (mild) diastolic dysfunction. Prior Study Comparison Changes noted compared to prior study dated: 04/25/2024. LV ejection fraction has marginally improved Measurements 2D Linear Measurements IVSd: 0.82 0.6-0.9/0.6-1.0 cm LVIDd: 4.75 3.9-5.3/4.2-5.9 cm LVIDd Index: 2.84 2.4-3.2/2.2-3.1 cm/m2 LVPWd: 0.76 0.7-1.1 cm LV Mass: 152.82 67-162/88-224 g LV Mass Index: 91.51 43-95/49-115 g/m2 LVOT Diam: 2.00 3.0+(-)1.3 cm 2D Systolic Function EF 4C: 53.40 >55% EF 2C: 62.50 >55% EF BiP: 58.30 >55% Mitral Valve MV Pk E: 0.45 MV PK A: 0.59 MV Decel Time: 370.00 E/A: 0.80 E'Lateral: 7.94 E'Medial: 5.11 E/E' Med: 8.70 E/E' Lat: 5.60 PHT: 108.00 MVA PHT: 2.04 Decel Gage: 1.20 LVOT LVOT Pk David: 1.07 LVOT Mn David: 0.69 LVOT VTI: 0.23 LVOT Pk Grad: 5.00 LVOT Mn Grad: 2.00 LVOT Diam: 2.00 LVOT Area: 3.14 Diastolic Function MV Pk E: 0.45 MV Pk A: 0.59 E/A: 0.80 E'Medial: 5.11 E/E' Med: 8.70 E' Laterial: 7.94 E/E' Lat: 5.60 Tricuspid Valve RA Press: 3.00 Updated in Other Vendor System with Status of Final Harris Mo MD electronically signed on 12/07/2024 12:25:55 PM with status of Final
--- OUTSIDE RECORDS SUMMARY | 2024-12-06 10:19 | XMS_ITS | Clinical Summary ---
Author Organization [address] Address [address] [place] [address] Phone Care Team Providers Care Cobol Application Developer Name Role Phone Rachel Torres MD Primary Care Provider [phone] Surgical History Surgery Date Site/Laterality Comments OOPHORECTOMY [...] Upcoming Encounters Date Type Department Care Team ([facility] Contact Info) Description 12/22/2024 8:50 AM EDT Appointment Radiology Department [address] [phone] Health Maintenance Due Date Last Done Comments Colorectal Cancer Screening: Stool Based Tests (FOBT/FIT) 05/09/2022 Depression Screening 05/09/2022 Falls Risk Assessment 05/09/2022 Hepatitis C Screening 05/09/2022 Medicare Annual Wellness Visit 05/09/2022 Social Influencers of Health Screening 05/09/2022 COVID-19 Vaccine ( season) 2024 03/21/2024, 02/17/2023, 03/13/2022, Additional history exists Influenza Vaccine (#1) 2025 , 02/17/2023, 03/13/2022, Additional history exists Breast Cancer Screening 12/13/2025 12/14/19, 12/14/2023, 06/16/2023, Additional history exists RSV Immunization Adult Patients (1 - 1-dose 75+ series) 2027 DTaP,Tdap,and Td Vaccines (3 - Td or Tdap) 03/23/2031 03/23/2021, 04/05/2015 Osteoporosis Screening (Bone Density Screening) 04/24/2034 04/24/2024, 02/04/2021 Zoster Vaccines Completed 01/08/2022, 05/0 08/2021, 03/06/2017 Pneumococcal Vaccine: 50+ Years Completed 09/24/2023, 05/03/2019, 04/18/2018 HIB Vaccines Aged Out No longer eligi [...] the T-scores as follows: At or above -1 SD Normal bone density Between -1 and -2.5 SD Osteopenia At or below -2.5 SD Osteoporosis -------- FINAL REPORT -------- Dictated By: Damian Salamanca Dictated Date: 04/24/2024 18:16 ET Assigned Physician: Damian Salamanca Reviewed and Electronically Signed By: Damian Salamanca Signed Date: 04/24/2024 18:18 ET Workstation ID: [id number] Transcribed By: Self Edit Transcribed Date: 04/24/2024 18:16 ET Narrative 04/24/2024 6:18 PM EST STUDY: DUAL ENERGY X-RAY ABSORPTIOMETRY / DXA REASON FOR EXAM: Female, 73 years old post-menopausal symptoms Menopausal and postmenopausal disorder TECHNIQUE: Bone Mineral Density (BMD) measurements of the lumbar spine and left hip were obtained using [employer] Discovery W (S/N 16175). COMPARISON: February 04, 2021 FINDINGS: L1-L4 BMD: [...] lumbar spineand left hip were obtained using [employer] Discovery W (S/N 79085). COMPARISON: February 04, 2021 FINDINGS: L1-L4 BMD: [...] Signed Date: 04/24/2024 18:18 ET Workstation ID: [id number] Transcribed By: Self Edit Transcribed Date: 04/24/2024 [...] parenchyma is composed of scattered fibroglandular densities. Stable nodular asymmetry in the posterior outer right breast. No new suspicious mass, architectural distortion, or suspicious calcifications in either breast. Impression: Stable probably benign asymmetry in the outer right breast. Recommend continued follow-up in 1 year. No new [...] [employer] Care Teams Cobol Application Developer Relationship Specialty Start Date End Date Rachel Torres MD [address] [place] [address] PCP - General Internal Medicine 11/04/20
== END ==
LOC: HO.CARD 09:46
PROVIDERS: PCP Internal Medicine; Visit Provider Nurse Practitioner Family
DX: R93.1 Abnormal findings on diagnostic imaging of heart and coronary circulation (principal)
CPT/HCPCS: 93308

== ENCOUNTER → 2024-12-06 09:50 | Outpatient (BNV) | payer MEDICARE, SELFPAY | PROVIDERS: PCP Internal Medicine; Visit Provider Internal Medicine Cardiovascular Disease | DX: R93.1 Abnormal findings on diagnostic imaging of heart and coronary circulation (principal) | CPT/HCPCS: 93308; 93321 ==

== ENCOUNTER 2025-02-12 13:45 | Outpatient (AMB) | payer MEDICARE, SELFPAY ==
--- NOTE | 2025-02-12 13:53 | MHC.OFFVIS ---
Vital Signs 02/12/25 13:59 Height 5 ft 4 in Weight 140 lb BMI 24.0 Intake Visit Reasons: New prob-Rt hand pain/ trigger finger 4th digit Intake Note: Leana is a 74 year old right hand dominant female who presents today for a New Problem Visit with complaints of Right Ring Finger Locking. Patient complains of cramping with a pulling sensation from the palm of her hand. She describes this as a bump that started as a trigger finger but it is not bending anymore due to this pulling sensation . She also complains of Left Middle Finger Locking and Catching. She has not tried hand braces, injections or occupational therapy. Allergies No Known Allergies Allergy (Verified 02/12/25 13:59) HPI HPI New prob-Rt hand pain/ trigger finger 4th digit: Details: Leana is a 74 year old right hand dominant female who presents today for a New Problem Visit with complaints of Right Ring Finger Locking. Patient complains of cramping with a pulling sensation from the palm of her hand. She describes this as a bump that started as a trigger finger but it is not bending anymore due to this pulling sensation . She also complains of Left Middle Finger Locking and Catching. She has not tried hand braces, injections or occupational therapy. Patient inquires potential injections for the right 4th digit. [facility] Medical History Osteoporosis Hyperlipidemia Iron deficiency anemia COVID-19 Primary osteoarthritis of left knee Family history of breast cancer in sister Abnormal mammogram of both breasts Arthritis of left knee Osteopenia of multiple sites Hx of fracture of clavicle Rhinitis Eri's disease Laceration of forearm Surgical History Hx of lumpectomy H/O colonoscopy History of left oophorectomy Family History Father Substance use disorder Brother Substance use disorder Colon cancer Mother Mental health disorder Colon cancer Sister Breast cancer, Onset Age: 50 Social History Household Members: Spouse Housing: House Are you a primary critical care transport nurse to a significant other at home: No Do you presently have visiting nurse or other home services: No Alcohol intake: current Alcohol intake frequency: 0-2 drinks per day Alcohol type: wine Patient Tobacco Use Status: Never used Tobacco e-Cigarette/Vaping Use: Never Used Second Hand Smoke Exposure: No Advance Directives Date on File: 09/24/23 service: No Current occupational status: retired Current occupation: Right hand dominate Cognitive needs: No Hearing needs: No Vision needs: Yes Female Reproductive History Menstrual Age of Menarche: 14 Review of Systems Const All systems reviewed & are unremarkable except as noted in HPI and below Physical Exam Vital Signs: BMI result Body Mass Index 24.0 Extrem Other: Patient is alert, oriented, and in no acute distress. Neuro: Normal sensation of the tips of all digits of the bilateral hand at this time Vascular: Cap refill brisk Pain: Mild tenderness to palpation noted of the A1 az of the right ring finger Pain associated with both passive flexion and locking and catching of the right ring finger ROM: With encouragement, patient is able to be passively brought to a full closed fist with the right ring finger, however is in the able to actively flex to approximately 90 degrees with the MCP joint, with a proximally 45 degrees of flexion at the PIP joint and almost no active flexion at the DIP joint Patient is able to make a closed fist and extend all other digits of the right hand fully and without difficulty Skin: No lacerations or abrasions. General: No ecchymosis, erythema, or evidence of infection. Psych: Appears grossly normal Affect normal Attitude cooperative Office Procedures AMB Tendon Injection Tendon Injection [id number] Tendon Sheath Injection All charges added?: Procedure code (CPT) selection complete Assessment & Plan Assessment & Plan (1) Stiffness of finger joint of right hand: Code(s): M25.641 - Stiffness of right hand, not elsewhere classified Category: Medical (2) Trigger finger, right ring finger: Code(s): M65.341 - Trigger finger, right ring finger Category: Medical Plan 1. Right ring finger trigger finger Patient is educated about this condition Patient is educated about the treatment options available Patient would like to proceed with steroid injection The risks and benefits of a steroid injection including but not limited to risk of damage to blood vessels, nerves, tendons, infection, skin bleaching, failure to improve symptoms, increased pain, and possible need for further injections or other intervention were discussed with the patient and the patient wishes to proceed with the steroid injection. Once consent was obtained, I sterilely prepped the area over the A1 az of the flexor tendon sheath of the right ring finger. I then injected the flexor tendon sheath with a combination of 1 mL of dexamethasone (4mg/ml), and 1% lidocaine. The patient tolerated the procedure well with no complications. If the patient continues to have locking and catching 4-6 weeks following this injection, they may call to schedule appointment to discuss alternative treatment options Patient is also referred to OT for range of motion and gentle strengthening of the right ring finger, as I feel it secondary to not bending her digit due to locking and catching, she has become significantly stiff. Follow-up prn Orders: Orders OT Evaluation and Treatment Today M25.641 - Stiffness of right hand, not elsewhere classified, M65.341 - Trigger finger, right ring finger Coding Level of Care Code New Pt Level 3 (05413) Diagnoses Stiffness of finger joint of right hand M25.641 Trigger finger, right ring finger M65.341 CPT Codes Tendon Injection - Tendon Injection 1: [id number] Tendon Sheath Injection ([id number])
[2025-02-12 13:59] VITALS: BMI 24.0
--- OUTSIDE RECORDS SUMMARY | 2025-02-12 19:02 | XMS_ITS | Clinical Summary ---
Author Organization [facility] [address] [place] [address] Address [address] [place], [place] Phone Care Team Providers Care Store Clerk Checker Name Role Phone Rachel Torres MD Primary Care Provider Encounters Date Type Department Care Team Description 01/17/2025 1:18 PM EDT - 01/17/2025 11:59 PM EDT Hospital Encounter Radiology Department - [address] [phone] Abnormal mammogram Discharge Disposition: Home or Self Care from Last 3 Months Surgical History Surgery Date Site/Laterality Comments OOPHORECTOMY PROCEDURE: [place] OOPHORECTOMY PARTIAL/TOTAL UNI/BI SALPINGOOPHORECTOMY 1999 PROCEDURE: [place] LAPAROSCOPY W/RMVL ADNEXAL STRUCTURES; COMMENT: benign tumor [...] = 0.6 oz pur e alcohol) Comments No Sex and Gender Information Value Date Recorded Sex Assigned at Not on file Legal Sex Female 4:03 AM EST Gender Identity Not on file Sexual Orientation Not on file Obstetrics History Para Term AB IAB SAB Ectopic Multiple Livin g Live Births 0 0 0 Plan of Treatment Health Maintenance Due Date Last Done Comments Colorectal Cancer Screening: Stool Based Tests (FOBT/FIT) 05/09/2022 Falls Risk Assessment 05/09/2022 Hepatitis C Screening 05/09/2022 Medicare Annual Wellness Visit 05/09/2022 Social Influencers of Health Screening 05/09/2022 Depression Screening 05/31/2024 COVID-19 Vaccine ( season) 2025 03/21/2024, 02/17/2023, 03/13/2022, Additional history exists Influenza Vaccine (#1) 2025 , 02/17/2023, 03/13/2022, Additional history exists Breast Cancer Screening 01/17/2027 01/18/20, 12/14/2023, 12/14/2023, Additional history exists RSV Immunization Adult Patients (1 - 1-dose 75+ series) 2027 DTaP,Tdap,and Td Vaccines (3 - Td or Tdap) 03/23/2031 03/23/2021, 04/05/2015 Osteoporosis Screening (Bone Density Screening) 04/24/2034 04/24/2024, 02/04/2021 Zoster Vaccines Completed 01/08/2022, 0508/2021, 03/06/2017 Pneumococcal Vaccine: 50+ Years Completed 09/24/2023, [...] Procedure Name Priority Date/Time Associated Diagnosis Comments MG MAMMO DIGITAL DIAGNOSTIC W SHADY BILAT Routine 01/17/2025 1:31 PM EDT Abnormal mammogram BD BONE DENSITY DXA AXIAL SKELETON Routine 04/24/2024 10:37 AM EST Unspecified menopausal and perimenopausal disorder from Last 3 Months or Most Recently Relevant to Health Maintenance Results * MG Mammo Digital Diagnostic w Shady bilat (01/17/2025 1:31 PM EDT) Anatomical Region Laterality Modality Breast Bilateral Mammography 01/17/2025 1:32 PM EDT Impressions 01/17/2025 1:41 PM EDT 1. No mammographic evidence of malignancy 2. Scattered fibroglandular tissue BI-RADS CATEGORY: 2 - BENIGN RECOMMENDATION: Return to annual mammography. Return to annual mammography. -------- FINAL REPORT -------- Dictated By: Pilo Santillan Dictated Date: 01/17/2025 13:32 ET Assigned Physician: Pilo Santillan Reviewed and Electronically Signed By: Pilo Santillan Signed Date: 01/17/2025 13:41 ET Workstation ID: [id number] Transcribed By: Self Edit Transcribed Date: 01/17/2025 13:32 ET Narrative 01/17/2025 1:41 PM EDT BILATERAL DIGITAL 3D DIAGNOSTIC MAMMOGRAPHY HISTORY: Follow-up for right breast CC view lateral posterior depth asymmetry COMPARISON: Multiple mammograms dating back to 11/16/2018 Technique: Bilateral CC and MLO full field views FINDINGS: BREAST DENSITY: B - There are scattered areas of fibroglandular density. Right: Right breast CC view lateral posterior depth asymmetry is morphologically stable and demonstrate at least two-year stability. No new suspicious masses, microcalcifications or areas of architectural distortion. Stable typically benign parenchymal asymmetries. Left: No new suspicious masses, microcalcifications or areas of architectural distortion. Stable typically benign parenchymal asymmetries Procedure Note iPlo Santillan MD - 01/17/2025 BILATERAL DIGITAL 3D DIAGNOSTIC MAMMOGRAPHY HISTORY: Follow-up for right breast CC view lateral posterior depthasymmetry COMPARISON: Multiple mammograms dating back to 11/16/2018 Technique: Bilateral CC and MLO full field views FINDINGS: BREAST DENSITY: B - There are scattered areas of fibroglandular density. Right: Right breast CC view lateral posterior depth asymmetry is morphologicallystable and demonstrate at least two-year stability. No new suspiciousmasses, microcalcifications or areas of architectural distortion. Stabletypically benign parenchymal asymmetries. Left: No new suspicious masses, microcalcifications or areas of architecturaldistortion. Stable typically benign parenchymal asymmetries IMPRESSION: 1. No mammographic evidence of malignancy 2. Scattered fibroglandular tissue BI-RADS CATEGORY: 2 - BENIGN RECOMMENDATION: Return to annual mammography. Return to annual mammography. -------- FINAL REPORT -------- Dictated By: Pilo Santillan Dictated Date: 01/17/2025 13:32 ET Assigned Physician: Pilo Santillan Reviewed and Electronically Signed By: Pilo Santillan Signed Date: 01/17/2025 13:41 ET Workstation ID: [id number] Transcribed By: Self Edit Transcribed Date: 01/17/2025 13:32 ET us Rachel Torres MD IMG BI PROCEDURES Final Res ult * BD Bone Density DXA Axial Skeleton [...] Signed Date: 04/24/2024 18:18 ET Workstation ID: [id number] Transcribed By: Self Edit Transcribed Date: 04/24/2024 18:16 ET Narrative 04/24/2024 6:18 PM EST STUDY: DUAL ENERGY X-RAY ABSORPTIOMETRY / DXA REASON FOR EXAM: Female, 73 years old post-menopausal symptoms Menopausal and postmenopausal disorder TECHNIQUE: Bone Mineral Density (BMD) measurements of the lumbar spine and left hip were obtained using [employer] Discovery W (S/N [id number]). COMPARISON: February 04, 2021 FINDINGS: L1-L4 BMD: [...] lumbar spineand left hip were obtained using [employer] Discovery W (S/N 17008). COMPARISON: February 04, 2021 FINDINGS: L1-L4 BMD: [...] Signed Date: 04/24/2024 18:18 ET Workstation ID: [id number] Transcribed By: Self Edit Transcribed Date: 04/24/2024 18:16 ET us Rachel Torres MD IMG DXA PROCEDURES Final Re sult from Last 3 Months or Most Recently Relevant to Health Maintenance Insurance [employer] Care Teams Store Clerk Checker Relationship Specialty Start Date End Date Rachel Torres MD [address] [place] [address] PCP - General Internal Medicine 11/04/20
== END 2025-02-12 14:34 | disposition home or self-care (01) ==
LOC: HO.HOS 13:46
PROVIDERS: PCP Internal Medicine
DX: M25.641 Stiffness of right hand, not elsewhere classified (principal); M65.341 Trigger finger, right ring finger
CPT/HCPCS: 20550; 99203

== ENCOUNTER → 2025-02-12 13:45 | Outpatient (BNVA) | payer MEDICARE, SELFPAY | PROVIDERS: PCP Internal Medicine | DX: M65.341 Trigger finger, right ring finger (principal); M25.641 Stiffness of right hand, not elsewhere classified | CPT/HCPCS: 20550; 99202; J1100; J2003 ==

== ENCOUNTER 2025-02-13 09:15 | Outpatient (AMB) | payer MEDICARE, SELFPAY ==
--- NOTE | 2025-02-13 09:30 | MHC.OFFVIS ---
Vital Signs 02/13/25 09:33 Height 5 ft 4 in Weight 140 lb BMI 24.0 Intake Visit Reasons: OV f/u: L TKA w/ 05/01/24 Intake Note: Leana is a 74 year old female who presents with complaints of intermittent discomfort in her left knee after undergoing left total knee replacement surgery on 05/01/2024. She continues to walk up to 3 miles daily for exercise. She denies any fevers or chills. Allergies No Known Allergies Allergy (Verified 02/13/25 09:33) Medication List - Last Reconciled 02/13/25 by Bradley Escobedo MD amoxicillin 2,000 mg (4 x 500 mg) PO ONCE calcium carbonate-vitamin D3 600 mg-5 mcg (200 unit) 1 tab PO DAILY celecoxib (Celebrex) 200 mg PO DAILY PRN fluticasone propionate 50 mcg/actuation (Flonase Allergy Relief) 1 spray intranasal DAILY PRN PFSH Medical History Osteoporosis Hyperlipidemia Iron deficiency anemia COVID-19 Primary osteoarthritis of left knee Family history of breast cancer in sister Abnormal mammogram of both breasts Arthritis of left knee Osteopenia of multiple sites Hx of fracture of clavicle Rhinitis Eri's disease Laceration of forearm Surgical History Hx of lumpectomy H/O colonoscopy History of left oophorectomy Family History Father Substance use disorder Brother Substance use disorder Colon cancer Mother Mental health disorder Colon cancer Sister Breast cancer, Onset Age: 50 Social History Household Members: Spouse Housing: House Are you a primary vehicle care specialist to a significant other at home: No Do you presently have visiting nurse or other home services: No Alcohol intake: current Alcohol intake frequency: 0-2 drinks per day Alcohol type: wine Patient Tobacco Use Status: Never used Tobacco e-Cigarette/Vaping Use: Never Used Second Hand Smoke Exposure: No Advance Directives Date on File: 09/24/23 service: No Current occupational status: retired Current occupation: Right hand dominate Cognitive needs: No Hearing needs: No Vision needs: Yes Female Reproductive History Menstrual Age of Menarche: 14 Physical Exam Vital Signs: BMI result Body Mass Index 24.0 Const Other: Well-nourished well-developed very friendly female awake alert and oriented x3 in no acute distress Extrem Other: Left knee examination shows that the surgical incision is well healed, no erythema, full active extension and flexion to 120 degrees, her patella tracks well Results Reviewed Results Reviewed: X-rays of the patient's left knee taken today show a total knee arthroplasty in good position with no signs of loosening, no acute bony abnormalities Assessment & Plan Assessment & Plan (1) Left knee pain: Code(s): M25.562 - Pain in left knee Category: Medical Plan Leana continues to do well after undergoing left total knee replacement surgery on 05/01/2024. She does know to take antibiotics before any dental work. She will continue walking for exercise. She will contact me prior to her annual follow-up appointment should any questions or concerns arise. Feel free to call me at any time should questions regarding her orthopedic management arise. I spent 20 minutes in reviewing the patient's records and imaging studies, seeing the patient and documenting in the medical record. Orders: Orders XR knee LT 3V Today M25.562 - Pain in left knee Coding Level of Care Code Est Pt Level 3 (91643) Complex EM visit Add On G2211 Diagnoses Left knee pain M25.562
[2025-02-13 09:33] VITALS: BMI 24.0
--- OUTSIDE RECORDS SUMMARY | 2025-02-13 11:39 | XMS_ITS | Clinical Summary ---
Author Organization [facility] [address] [place] [address] Address [address], [place] Phone Care Team Providers Care Tax Investigator Name Role Phone Rachel Torres MD Primary Care Provider Encounters Date Type Department Care Team Description 01/17/2025 1:18 PM EDT - 01/17/2025 11:59 PM EDT Hospital Encounter Radiology Department - [address] [phone] Abnormal mammogram Discharge Disposition: Home or Self Care from Last 3 Months Surgical History Surgery Date Site/Laterality Comments OOPHORECTOMY PROCEDURE: [place] OOPHORECTOMY PARTIAL/TOTAL UNI/BI SALPINGOOPHORECTOMY 1999 PROCEDURE: [place] LAPAROSCOPY W/RMVL ADNEXAL STRUCTURES; COMMENT: benign tumor [...] Signed Date: 01/17/2025 13:41 ET Workstation ID: [id number] Transcribed By: Self Edit Transcribed Date: 01/17/2025 [...] Stable typically benign parenchymal asymmetries Procedure Note Pilo Santillan MD - 01/17/2025 BILATERAL DIGITAL 3D [...] Signed Date: 01/17/2025 13:41 ET Workstation ID: [id number] Transcribed By: Self Edit Transcribed Date: 01/17/2025 [...] Signed Date: 04/24/2024 18:18 ET Workstation ID: [id number] Transcribed By: Self Edit Transcribed Date: 04/24/2024 18:16 ET Narrative 04/24/2024 6:18 PM EST STUDY: DUAL ENERGY X-RAY ABSORPTIOMETRY / DXA REASON FOR EXAM: Female, 73 years old post-menopausal symptoms Menopausal and postmenopausal disorder TECHNIQUE: Bone Mineral Density (BMD) measurements of the lumbar spine and left hip were obtained using [employer] Discovery W ([id number]/N [id number]). COMPARISON: February 04, 2021 FINDINGS: L1-L4 BMD: [...] lumbar spineand left hip were obtained using [employer] Discovery W (S/N [id number]). COMPARISON: February 04, 2021 FINDINGS: L1-L4 BMD: [...] Signed Date: 04/24/2024 18:18 ET Workstation ID: [id number] Transcribed By: Self Edit Transcribed Date: 04/24/2024 18:16 ET us Rachel Torres MD IMG DXA PROCEDURES Final Re sult from Last 3 Months or Most Recently Relevant to Health Maintenance Insurance [employer] Care Teams Tax Investigator Relationship Specialty Start Date End Date Rachel Torres MD [address] [place] [address] PCP - General Internal Medicine 11/04/20
== END 2025-02-13 09:44 | disposition home or self-care (01) ==
LOC: HO.HOS 09:16
PROVIDERS: PCP Internal Medicine; Visit Provider Orthopaedic Surgery
DX: M25.562 Pain in left knee (principal); Z96.652 Presence of left artificial knee joint
CPT/HCPCS: 99213; G2211

== ENCOUNTER 2025-02-13 09:21 | Outpatient (REF) | payer MEDICARE, SELFPAY ==
--- NOTE | ~2025-02-13 | XR_ITS ---
EXAMINATION: XR KNEE, LEFT CLINICAL INFORMATION: M25.562 - Pain in left knee COMPARISON: September 16, 2024 TECHNIQUE: AP lateral and sunrise view, of the left knee. FINDINGS: There is a metallic prosthesis well-seated in the osseous components of the femur and tibial plateau with subtle lucency. No gross malalignment. No suprapatellar bursa joint effusion. XR/XR knee LT 3V IMPRESSION: Total left knee arthroplasty prosthesis with likely loosening both femoral and tibial components. Electronically signed by: Luisito Ennis MD 02/13/2025 09:34 AM EDT
== END 2025-02-13 09:22 | disposition home or self-care (01) ==
LOC: HO.HOSX 09:21
PROVIDERS: Visit Provider Orthopaedic Surgery
DX: M25.562 Pain in left knee (principal); Z96.652 Presence of left artificial knee joint
CPT/HCPCS: 73562; 99212

== ENCOUNTER → 2025-02-13 09:22 | Outpatient (BNV) | payer MEDICARE, SELFPAY | PROVIDERS: Visit Provider Radiology Diagnostic Radiology | DX: M25.562 Pain in left knee (principal); Z96.652 Presence of left artificial knee joint | CPT/HCPCS: 73562 ==

== ENCOUNTER 2025-03-14 12:56 | Outpatient (RCR) | payer MEDICARE, SELFPAY ==
--- NOTE | 2025-02-19 11:55 | MHC.OT.EP ---
[facility] Office [address] [phone] F: [phone] F: [phone] Occupational Therapy Plan of Care Patient Name: Leana Mills Date of Evaluation: 02/19/25 Diagnosis: Right Ring Trigger Finger Pain Location: Mostly pain free Pain only with active locking at left middle finger Assessment: 74 yo female w/ right ring finger pain and catching, was seen in ortho 02/12/25 w/ cortisone injection to the A1 az, now referred to OT for continued conservative treatment of right ring trigger finger. On assessment today she denies pain at rest, but states when fingers lock (left middle and right ring) she gets sharp pain. She is noted to have grade 2 trigger in left middle finger, but no active locking observed in right ring at this time and non palpable nodule over A1 pulleys. There is slight cording in right palm indicative of early Dupuytren's contracture. She is impaired right ring finger strength, but FDS and FDP intact. We have fit with nighttime Oval 8 wear to reduce active movement while sleeping, and educated on tendon glides and passive range to maintain range and start strengthening, while being mindful of forceful fist and grasping. Frequency and Duration: The patient will be seen 1x/wk for 4 weeks Short Term Goals: Ind w/ nighttime orthosis wear Ind w/ HEP for tendon glides, blocked FDS and FPS and passive fist Ind w/ cold and heat modalties Ind w/ activity modification/adaptive changes to tools Snf Goals: see above Treatment Plan: Therapeutic Exercise Therapeutic Activity Home Exercise Program Splinting Patient Education Edema Control ADL Training Paraffin Fluidotherapy MHP Cold Packs Joint Mobilization Soft Tissue Mobilization Electronically Signed By: Miryam Billingsley OTR/L CHT Please Sign and return to therapist. Thank you once again for your referral.
--- NOTE | 2025-03-14 13:56 | MHC.OT.DC ---
[facility] Office [address] [phone] F: [phone] F: [phone] Occupational Therapy Discharge Note Patient Name: Leana Mills Provider: Dk Phillip PA-C Diagnosis: Right Ring Trigger Finger Date of Surgery: Date of Evaluation: 02/19/25 Date of Discharge: 03/14/25 Treatments to Date: 2 Cancellations to Date: No Shows to Date: Discharge Status: Independent with HEP Discharge Summary: 74 yo female w/ right ring finger pain and catching, was seen in ortho 02/12/25 w/ cortisone injection to the A1 az and referred to OT for continued conservative treatment of right ring trigger finger. She has held therapy for three weeks to trial oval 8 wear and passive stretching. She returned today w/ good follow through w/ oval 8 wear, but still with grade two triggering in left middle ring and now observed in right ring finger. Very tight intrinsics through right middle and ring finger with hook fist, but good joint range at IPs. She has decreased FDS glide/strength with tendon possibly tight through palm with fascial adhesions, not also noted to have pulling around volar wrist scar (old injury and visually deep scarring). She will continue with home program and goal of self management, will contact ortho next month if no positive change. Electronically Signed By: MINDY Negro/Radha RODRÍGUEZ Reviewed/agree with student documentation: Therapist: Please Sign and return to therapist, thank you for your referral.
== END 2025-03-14 13:56 | disposition home or self-care (01) ==
LOC: HO.OT 12:56
PROVIDERS: PCP Internal Medicine
DX: M65.341 Trigger finger, right ring finger (principal); M25.641 Stiffness of right hand, not elsewhere classified
CPT/HCPCS: 97110; 97140; 97165